=== PATIENT | female | born 1945 ===

== ENCOUNTER → 2017-07-15 09:07 | Outpatient (CLI) | payer MEDICARE, OTHER, SELFPAY ==
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
== END ==
PROVIDERS: PCP Internal Medicine; Visit Provider Internal Medicine
DX: M51.34 Other intervertebral disc degeneration, thoracic region (principal); M47.816 Spondylosis without myelopathy or radiculopathy, lumbar region
CPT/HCPCS: 72100

== ENCOUNTER → 2018-03-16 09:08 | Outpatient (CLI) | payer MEDICARE, OTHER, SELFPAY ==
--- NOTE | 2018-03-16 | DI.MG.S_ITS ---
BILATERAL DIGITAL SCREENING MAMMOGRAM 3D/2D WITH CAD: 03/16/2018 CLINICAL: Routine screening. Comparison is made to exams dated: 03/12/2014 mammogram and 07/21/2009 mammogram - [facility]. There are scattered fibroglandular elements in both breasts. Current study was also evaluated with a Computer Aided Detection (CAD) system. No significant masses, calcifications, or other findings are seen in either breast. There has been no significant interval change. IMPRESSION: NEGATIVE There is no mammographic evidence of malignancy. A 1 year screening mammogram is recommended. This exam was interpreted at Station ID: [id number]. NOTE: For mammograms, a report in lay terms will be sent to the patient. Approximately 15% of breast malignancies will not be visualized mammographically. In the management of a palpable breast mass, a negative mammogram must not discourage biopsy of a clinically suspicious lesion. Electronically Signed By: Juan Francisco lin/gabriela:03/16/2018 11:08:12 letter sent: Normal Exam ACR BI-RADS Category 1: Negative [id number]
== END ==
PROVIDERS: PCP Internal Medicine; Visit Provider Internal Medicine
DX: Z12.31 Encounter for screening mammogram for malignant neoplasm of breast (principal)
CPT/HCPCS: 77063; 77067

== ENCOUNTER 2018-04-25 08:36 | Day surgery (SDC) | payer MEDICARE, OTHER, SELFPAY ==
[2018-04-25] VITALS (8 sets, daily range): BP systolic 127–171; BP diastolic 42–93; PULSE 60–84; RESP 8–20; TEMP 36.5–36.7; O2SAT 96–100; BMI 21.7
--- NOTE | 2018-04-25 | PATH.2_ITS ---
[facility] Accession Number: [id number] . 01 Material submitted: . PART A: GASTRIC ANTRUM BIOPSIES PART B: POLYP TRANSVERSE COLON . 02 Diagnosis: A. Stomach, Antrum, Biopsies: Antral mucosa with reactive gastropathy. Negative for Helicobacter by immunohistochemistry. Negative for intestinal metaplasia. Negative for dysplasia and malignancy. . B. Transverse Colon, Polyp, Biopsy: Tubular adenoma. MRV/04/27/2018 . 02 Electronically signed: . Ashley Muir MD, Pathologist NPI- [id number] . 01 Gross description: . Received two formalin-filled containers, both labeled with the patient's name: . A. In a container labeled gastric antrum, are multiple 0.1-0.3 cm portions of tissue, which are entirely submitted in cassette A. B. In a container labeled polyp transverse colon, is a 0.4 cm portion of tissue, entirely submitted in cassette B. ([id number]) /FRR . 02 Microscopic: . A. An immunohistochemical stain was performed to evaluate for Helicobacter organisms and is negative. The control stain showed appropriate reactivity. . * This test was developed and its performance characteristics determined by [facility]. It has not been cleared or approved by the U.S. Food and Drug Administration. The FDA has determined that such clearance or approval is not necessary. This test is used for clinical purposes. It should not be regarded as investigational or for research. . 02 Pathologist provided ICD-10: D12.3 . 02 CPT . 290255, 112157, D42124 Performed at: 01 [facility] [address] [place] [address] [address], [place], [place] [id number] MD Juan Francisco Silva MD Phone: [phone] Performed at: 02 [facility] [address] [place] [id number] MD Ashley Muir MD Phone: [phone]
--- NOTE | 2018-04-25 09:49 | P.HP_ITS ---
History of Present Illness Date Patient Seen: 04/25/18 Time Patient Seen: 09:46 Chief complaint: [id number] EGD COLONOSCOPY Narrative: Patient is woman who is here for an EGD in follow-up to her esophageal issues and for colonoscopy for screening. No prior history of polyps. No family history. Patient History Medical History Back pain (Chronic) HTN (hypertension) (Chronic) Paraplegic spinal paralysis (Chronic) Hx of hysterectomy (Resolved) Surgical History History of urostomy (Chronic) History of Keyon fundoplication (Resolved) Hx laparoscopic cholecystectomy (Resolved) Hx of cholecystectomy (Resolved) Hx of hernia repair (Resolved) Hx of spinal fusion (Resolved) Family History Father Heart disease Mother Cancer Stroke Social History household members: spouse Smoking Status: Never smoker Family & Social History Family History Father Heart disease Mother Cancer Stroke Social History: household members spouse Tobacco & Substance use: Smoking Status Never smoker Meds Home Medications Medication Instructions Recorded Confirmed Type ASPIRIN (#ASPIRIN) 81 mg PO QDAY #0 10/22/11 04/25/18 History VITAMIN D (Vitamin D3) 1,000 unit PO QDAY #0 10/22/11 04/25/18 History [MORPHINE/BUPIVICAINE] See Rx Instructions .ROUTE 10/22/11 04/25/18 History .COMPLEX #0 citalopram 10 mg PO QDAY #0 10/22/11 04/25/18 History clonazepam 1 mg PO HS #0 10/22/11 04/25/18 History furosemide 20 mg PO PRN EDEMA #0 10/22/11 04/25/18 History ibuprofen 800 mg PO Q8HP #0 10/22/11 04/25/18 History levothyroxine [Synthroid] 25 mcg PO QDAY #0 10/22/11 04/25/18 History modafinil [Provigil] 100 mg PO PRN #0 10/22/11 04/25/18 History oxycodone [OxyContin] 10 mg PO PRN #0 10/22/11 04/25/18 History omeprazole 20 mg PO BID #60 tab 12/30/15 04/25/18 Rx dextroamphetamine 15 mg PO PRN PRN #0 03/04/16 04/25/18 History lisinopril 20 mg tablet 20 mg PO DAILY 03/22/18 04/25/18 History clonazepam [Klonopin] 1 mg PO Q8HP PRN 04/25/18 04/25/18 History ondansetron [Zofran ODT] 8 mg SUBLINGUAL PRN PRN 04/25/18 04/25/18 History Allergies Allergy/AdvReac Type Severity Reaction Status Date / Time sulfamethoxazole Allergy Intermediate HIVES/Rash Verified 04/25/18 09:01 [From BACTRIM] trimethoprim [From BACTRIM] Allergy Intermediate HIVES/Rash Verified 04/25/18 09:01 duloxetine [From CYMBALTA] AdvReac Intermediate STUTTERING, Verified 04/25/18 09:01 SLEEPING ISSUES gabapentin [GABAPENTIN] AdvReac Unknown BECAME Verified 04/25/18 09:01 RECLUSIVE Review of Systems Review of Systems Very unhappy with the prep. Patient is paraplegic. Lungs are clear no cough or cold. No chest pain. Had an anti reflux procedure which was successful. Exam Vital Signs (past 8 hours): - 04/25/18 09:21 Temperature 97.7 F Pulse Rate 84 Respiratory Rate 20 Blood Pressure 171/93 H Pulse Oximetry 100 Oxygen Delivery Method Room Air Narrative Exam Narrative: Operative no apparent distress. Lungs are clear to auscultation no rales or rhonchi heart regular rate and rhythm no murmur or gallop abdomen various pain pump other devices palpable. Multiple scars. No tenderness. Alert and oriented x3. Typical changes of a paraplegic in her lower extremities arms. Assessment & Plan Assessment & Plan narrative: Patient for screening examination and for an EGD and biopsy. I have discussed the procedures with her. I have discussed the procedure and the rationale with the patient including risks of bleeding, per foration which would necessitate a major operation, failure to find remove all lesions and the potential to tattoo. They appeared to understand and wished to proceed.
--- NOTE | 2018-04-25 10:16 | PM.PREOP ---
Pre-operative Note Interval Note History & Physical reviewed/Exam performed by Physician: Yes Changes to H&P: No ASA Class (for procedural sedation): III
--- NOTE | 2018-04-25 10:27 | SUR.PREOP ---
It was difficult to start patients IV for her procedure. After 6 attempts, Dr. Armstrong was able to start a 20G in her right lateral dorsal foot.
[2018-04-25] MEDS: SODIUM CHLORIDE 0.9% 1,000 ML 200 ML IV (10:31)
[2018-04-25] MEDS: TETRACAINE/BENZOCAINE/BUTAMBEN (CETACAINE) BOTTLE 1 SPRAY TOP (10:47)
[2018-04-25] MEDS: LIDOCAINE 4% SOLN 50 ML 20 ML TOP (10:48)
--- NOTE | 2018-04-25 12:01 | PM.OP.ENDO ---
Operative Date/Time/Diagnoses Date of procedure: 04/25/18 Time of procedure: 12:01 Pre-op diagnosis: Epigastric right upper quadrant pain. Melena. Screening Post-op diagnosis: same (Multiple gastric ulcers) Procedure & Clinicians Study performed: EGD with cold biopsy. Incomplete colonoscopy with cold biopsy Same procedure as scheduled: No (Had planned to do a complete colonoscopy) Indications: See preop diagnosis Surgeon: Spencer Armstrong Procedure Notes SCOAP/Timeout: Performed Procedure in detail: The patient had topical anesthetic applied to oropharynx. She was placed in left lateral decubitus position and underwent IV sedation directed by the surgeon consisting of fentanyl and Versed. A bite block was inserted and the scope was advanced through it into the esophagus. The esophagus was unremarkable. GE junction was noted at 35 cm. The stomach insufflated well. There were no lesions seen in the body or at the incisura. However in the antrum there were multiple superficial ulcers. The pyloric channel was patent though narrowed. The duodenum was unremarkable to the 4th part. The scope was brought back into the stomach and retroflexed. The proximal stomach was remarkable for what appeared to be a wrap that may have slipped up into a hiatal hernia. The scope was directed toward the antrum and biopsies were taken out only of the ulcers but also surrounding areas.. The scope was straightened and brought out through the esophagus again. No lesions were seen. The scope was removed and the patient tolerated the procedure well. The patient was repositioned for colonoscopy and given additional medication. Digital exam was remarkable for no sphincter tone consistent with her paraplegia and visible mucosa a typical of these patients. The scope was inserted and advanced through the rectum into the sigmoid, descending, and transverse colon. It was incredibly difficult just to get this far. The patient had to be repositioned a stiffener inserted pressure applied. I had great difficulty keeping the lumen insufflated so I could see had of me. I saw 1 small polyp which I removed. I reached a point The scope was gradually brought out. No other Polyps were found . The scope was slowly brought through the rectum. The appearance was consistent with what was visible. Exposed mucosa but no neoplastic lesions. The scope was removed and the patient tolerated the procedure well the prep was excellent. The patient required a rather large amount of medication to perform these 2 procedures most likely related to prior medication use. I would recommend that she undergo mom deep sedation with monitored anesthesia care and the use of propofol in the future. Scope withdrawal time: Not applicable Sedation minutes: 68 Findings: gastric ulcer (Multiple antral ulcers. Biopsies taken.), polyp (Colonic in the transverse colon.) and other findings (Post Keyon fundoplication. Possible recurrence of hiatal hernia.) Specimen(s): other (Biopsies/polyp) Complications: none Recommendations: Other recommendation (Consider barium enema to evaluate her remaining right colon. Consider repeat EGD in 3 months to confirm gastric ulcer healing) Plan for aftercare: Repeat EGD in 3 months after treatment with double-dose proton pump inhibitors. Await biopsy results. Disposition: PACU
[2018-04-25] MEDS: fentaNYL 250 MCG/5 ML INJ IV (12:13)
[2018-04-25] MEDS: MIDAZOLAM 5 MG/5 ML VIAL IV (12:14)
== END 2018-04-25 13:00 | disposition home or self-care (01) ==
PROVIDERS: PCP Internal Medicine; Visit Provider Specialist
PROC: 0DJ08ZZ Inspection of Upper Intestinal Tract, Via Natural or Artificial Opening Endoscopic (ICD-10-PCS; CPT 43235; principal; 2018-04-25 08:45)
PROC: 0DJD8ZZ Inspection of Lower Intestinal Tract, Via Natural or Artificial Opening Endoscopic (ICD-10-PCS; CPT 45378; 2018-04-25 08:45)
DX: K25.9 Gastric ulcer, unspecified as acute or chronic, without hemorrhage or perforation (principal); R10.13 Epigastric pain; D12.3 Benign neoplasm of transverse colon
CPT/HCPCS: 45380; 43239; 88305; 88342; 99152; 99153; J2250; J3010

== ENCOUNTER → 2018-05-19 09:53 | Outpatient (CLI) | payer MEDICARE, OTHER, SELFPAY ==
--- NOTE | 2018-05-19 | DI.CT.S_ITS ---
PROCEDURE: CT CERVICAL SPINE WO CON INDICATIONS: PRESENCE OF INTRATHECAL PUMP TECHNIQUE: Noncontrast 3 mm thick sections acquired from the skull base to the T4 level. Sagittal and coronal reformats were then constructed. For radiation dose reduction, the following was used: automated exposure control, adjustment of mA and/or kV according to patient size. COMPARISON: [facility], , C-SPINE COMPLETE 6 OR MORE VWS, 06/01/2013, 12:31. FINDINGS: Image quality: Excellent. Bones: There is straightening of normal cervical lordosis. Grade 1 anterolisthesis of C3 on C4 is again seen, not significantly changed from 2014 study. Minimal anterolisthesis of C6 on C7 and C7 on T1 are seen. No acute compression fracture. Degenerative endplate changes, decreased intervertebral disc space and bilateral facet hypertrophic changes are noted throughout cervical spine. There is suggestion of mild diffuse disc bulge at C4-5 through C6-7 levels causing mild central canal stenosis and mild bilateral neuroforaminal narrowing. No suspicious intraosseous lesion. Visualized superior ribs are intact. Soft tissues: Prevertebral soft tissues are normal in thickness. No paravertebral hematomas. No apical pneumothoraces. IMPRESSION: #1. Grade 1 anterolisthesis of C3 on C4. Minimal retrolisthesis at C6-7 and C7-T1 levels. No acute compression fracture. #2. Degenerative disc disease and bilateral facet hypertrophic changes are noted throughout cervical spine with mild central canal stenosis and bilateral neuroforaminal narrowing at C4-5 through C6-7 levels. Dictated by: Lester Quiñones M.D. on 05/19/2018 at 14:51 Approved by: Lester Quiñones M.D. on 05/19/2018 at 14:56
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
== END ==
PROVIDERS: PCP Internal Medicine; Visit Provider Anesthesiology Pain Medicine
DX: M50.30 Other cervical disc degeneration, unspecified cervical region (principal); M48.02 Spinal stenosis, cervical region; M43.12 Spondylolisthesis, cervical region; M47.816 Spondylosis without myelopathy or radiculopathy, lumbar region; Z96.89 Presence of other specified functional implants
CPT/HCPCS: 72125; 72131

== ENCOUNTER 2018-08-11 06:58 | Day surgery (SDC) | payer MEDICARE, OTHER, SELFPAY ==
[2018-08-11] VITALS (9 sets, daily range): BP systolic 83–99; BP diastolic 42–65; PULSE 57–71; RESP 10–18; TEMP 36.1–37.1; O2SAT 94–98; BMI 20.9
--- NOTE | 2018-08-11 | PATH_ITS ---
[facility] Accession Number: [id number] . 01 Material submitted: . gastrointestinal site - GASTRIC ULCER . 02 Diagnosis: Gastric Ulcer, Biopsy: Acute erosive gastritis. Negative for Helicobacter organisms by immunohistochemistry. Negative for intestinal metaplasia. Negative for dysplasia or malignancy. [facility]/08/15/2018 . 02 Electronically signed: . Warren Sanford MD, PhD, Pathologist NPI- [id number] . 01 Gross description: . GASTRIC ULCER: Received in formalin are 4 fragment(s) of mark, soft tissue measuring 0.1 x 0.1 x 0.1 cm to 0.4 x 0.3 x 0.2 cm which is entirely submitted and submitted entirely in 1 cassette(s) /DMC /DMC . 02 Microscopic: . An immunohistochemical stain is performed to evaluate for Helicobacter organisms, and is negative. A control stain shows appropriate reactivity. . * This test was developed and its performance characteristics determined by [facility]. It has not been cleared or approved by the U.S. Food and Drug Administration. The FDA has determined that such clearance or approval is not necessary. This test is used for clinical purposes. It should not be regarded as investigational or for research. . 02 Pathologist provided ICD-10: K29.70 . 02 CPT . 528597, D67249 Performed at: 01 [facility] [address], [place], [place] [id number] MD Juan Francisco Silva MD Phone: [phone] Performed at: 02 [facility] [address] [place], [place] [id number] MD Ashley Muir MD Phone: [phone]
[2018-08-11] MEDS: SODIUM CHLORIDE 0.9% 1,000 ML 84 ML IV (07:23)
--- NOTE | 2018-08-11 07:37 | PM.HP.1 ---
History of Present Illness Date Patient Seen: 08/11/18 Time Patient Seen: 07:38 Chief complaint: [id number] EGD Narrative: The patient is a woman who had multiple gastric ulcers. She is here for follow-up examination. Patient History Medical History Back pain (Chronic) HTN (hypertension) (Chronic) Paraplegic spinal paralysis (Chronic) Hx of hysterectomy (Resolved) Surgical History History of urostomy (Chronic) History of Keyon fundoplication (Resolved) Hx laparoscopic cholecystectomy (Resolved) Hx of cholecystectomy (Resolved) Hx of hernia repair (Resolved) Hx of spinal fusion (Resolved) Family History Father Heart disease Mother Cancer Stroke Social History (Updated 03/22/18 @ 20:34 by Spencer Armstrong MD) household members: spouse Smoking Status: Never smoker Family & Social History Family History Father Heart disease Mother Cancer Stroke Social History: household members spouse Tobacco & Substance use: Smoking Status Never smoker Meds Home Medications Medication Instructions Recorded Confirmed Type VITAMIN D (Vitamin D3) 1,000 unit PO QDAY #0 10/22/11 04/25/18 History aspirin 81 mg PO DAILY #0 10/22/11 08/11/18 History citalopram 10 mg PO QDAY #0 10/22/11 04/25/18 History clonazepam 1 mg PO HS #0 10/22/11 04/25/18 History furosemide 20 mg PO PRN EDEMA #0 10/22/11 04/25/18 History ibuprofen 800 mg PO Q8HP #0 10/22/11 04/25/18 History levothyroxine [Synthroid] 25 mcg PO QDAY #0 10/22/11 04/25/18 History modafinil [Provigil] 100 mg PO PRN #0 10/22/11 04/25/18 History oxycodone [OxyContin] 10 mg PO PRN #0 10/22/11 04/25/18 History omeprazole 20 mg PO BID #60 tab 12/30/15 04/25/18 Rx dextroamphetamine 15 mg PO PRN PRN #0 03/04/16 04/25/18 History lisinopril 20 mg tablet 20 mg PO DAILY 03/22/18 04/25/18 History clonazepam [Klonopin] 1 mg PO Q8HP PRN 04/25/18 04/25/18 History ondansetron [Zofran ODT] 8 mg SUBLINGUAL PRN PRN 04/25/18 04/25/18 History Allergies Allergy/AdvReac Type Severity Reaction Status Date / Time adhesive tape Allergy Severe removed Verified 08/11/18 07:15 skin (allergy to athletic tape only) sulfamethoxazole Allergy Intermediate HIVES/Rash Verified 08/11/18 07:15 [From BACTRIM] trimethoprim [From BACTRIM] Allergy Intermediate HIVES/Rash Verified 08/11/18 07:15 duloxetine [From CYMBALTA] AdvReac Intermediate STUTTERING, Verified 08/11/18 07:15 SLEEPING ISSUES gabapentin [GABAPENTIN] AdvReac Unknown BECAME Verified 08/11/18 07:15 RECLUSIVE Review of Systems Review of Systems No black stool. Has good energy. Lungs clear no cough. No heart problems. Exam Vital Signs (past 8 hours): - 08/11/18 07:21 Temperature 97.4 F L Pulse Rate 71 Respiratory Rate 16 Blood Pressure 99/48 L Pulse Oximetry 98 Oxygen Delivery Method Room Air Narrative Exam Narrative: Thin pleasant woman with no distress. Lungs are clear to auscultation. Good effort. Heart regular rate and rhythm without murmur gallop. Abdomen her trunk is somewhat deformed because of her spinal injury. She has a large foreign body in her left upper abdomen consistent with a known pain pump. She has an additional foreign body in the posterior right for the same reason. Her abdomen has multiple scars and there is an ostomy in the right lower abdomen covered in a bag. Assessment & Plan Assessment & Plan narrative: Patient with a history of gastric ulcers here for follow-up EGD. I discussed the procedure including risks of bleeding perforation aspiration. She appears to understand wishes to proceed. She has had a Keyon fundoplication.
--- NOTE | 2018-08-11 07:40 | PM.PREOP ---
Pre-operative Note Interval Note History & Physical reviewed/Exam performed by Physician: Yes Changes to H&P: No ASA Class (for procedural sedation): III
[2018-08-11] MEDS: LIDOCAINE 4% SOLN 50 ML 20 ML TOP (07:59)
[2018-08-11] MEDS: TETRACAINE/BENZOCAINE/BUTAMBEN (CETACAINE) BOTTLE 1 SPRAY TOP (08:00)
[2018-08-11] MEDS: MIDAZOLAM 5 MG/5 ML VIAL IV (08:15)
[2018-08-11] MEDS: fentaNYL 250 MCG/5 ML INJ IV (08:16)
--- NOTE | 2018-08-11 08:23 | PM.OP.ENDO ---
Operative Date/Time/Diagnoses Date of procedure: 08/11/18 Time of procedure: 08:23 Pre-op diagnosis: History of gastric ulcers Post-op diagnosis: other (Persistent pre-pyloric ulcer. No other ulcers seen. Status post fundoplication.) Procedure & Clinicians Study performed: EGD with cold biopsy Same procedure as scheduled: Yes Indications: Follow-up to confirm healing of gastric ulcer Surgeon: Spencer Armstrong Procedure Notes SCOAP/Timeout: Performed Procedure in detail: The patient had topical anesthetic applied to oropharynx. She was placed in left lateral decubitus position and underwent IV sedation directed by the surgeon consisting of fentanyl and Versed. A bite block was inserted and the scope was advanced through it into the esophagus. The esophagus was unremarkable. GE junction was noted at 34 cm from the incisors. The stomach insufflated well. There were no lesions seen in the body or at the incisura. There was an ulcer covered in exudate in the pre-pyloric area. It was not particularly inflamed however. The pyloric channel was widely patent. The duodenum was unremarkable to the 4th part. The scope was brought back into the stomach and retroflexed. The proximal stomach was remarkable for evidence of her prior fundoplication. The scope was straightened and biopsies were taken of the ulcer. The scope was then brought out through the esophagus again. No lesions were seen. There was no evidence of esophageal inflammation. The scope was removed and the patient tolerated the procedure well. Scope withdrawal time: Not applicable Sedation minutes: 16 Findings: gastric ulcer (Pre pyloric) Specimen(s): other (Gastric ulcer biopsies) Complications: none Recommendations: Continue medication(s) Plan for aftercare: Will follow-up by phone and decide how to proceed.
[2018-08-11 08:43] LABS: Erythrocyte Sedimentation Rate 56 MM/HR (0-20)
[2018-08-11 08:58] LABS: HEMOLYSIS < 15 (0-50); Potassium 4.3 mmol/L (3.4-5.1)
[2018-08-11 09:00] LABS: Alanine Aminotransferase 22 IU/L (9-52); Albumin 3.8 g/dL (3.5-5.0); Albumin Globulin Ratio 1.2 (1.0-2.8); Alkaline Phosphatase 102 U/L (38-126); Aspartate Aminotransferase 20 IU/L (14-36); Bilirubin Total 0.6 mg/dL (0.2-1.3); Blood Urea Nitrogen 29 mg/dL (7-17); C-Reactive Protein Quant 5.3 mg/dL (<1.0); Calcium 9.4 mg/dL (8.4-10.2); Carbon Dioxide 33 mmol/L (22-32); Chloride 95 mmol/L (98-107); Estimated Glomerular Filt Rate 54.7 mL/min (>60); Globulin 3.3 g/dL (1.7-4.1); Glucose 87 mg/dL (80-110); Sodium 133 mmol/L (137-145); Total Protein 7.1 g/dL (6.3-8.2); Uric Acid 6.5 mg/dL (2.5-6.2)
[2018-08-11 09:02] LABS: Rheumatoid Factor 15.1 IU/mL (<12.0)
[2018-08-15 10:31] LABS: CCP Antibodies IgG/IgA 8
== END 2018-08-11 10:00 | disposition home or self-care (01) ==
PROVIDERS: Internal Medicine Rheumatology; PCP Internal Medicine; Visit Provider Specialist
PROC: 0DJ08ZZ Inspection of Upper Intestinal Tract, Via Natural or Artificial Opening Endoscopic (ICD-10-PCS; CPT 43235; principal; 2018-08-11 07:45)
DX: K25.9 Gastric ulcer, unspecified as acute or chronic, without hemorrhage or perforation (principal); I10 Essential (primary) hypertension; K29.70 Gastritis, unspecified, without bleeding
CPT/HCPCS: 43239; 80053; 84550; 85651; 86038; 86140; 86200; 86430; 88305; 88342; 99152; J2250; J3010

== ENCOUNTER 2019-01-11 08:51 | Day surgery (SDC) | payer MEDICARE, OTHER, SELFPAY ==
[2019-01-11] VITALS (7 sets, daily range): BP systolic 83–127; BP diastolic 42–75; PULSE 50–76; RESP 9–16; TEMP 36.2–36.6; O2SAT 95–100
--- NOTE | 2019-01-11 | PATH_ITS ---
[facility] Accession Number: [id number] . 01 Material submitted: . gastrointestinal site - GASTRIC BIOPSIES . 01 Clinical history: . EGD . 02 Diagnosis: Stomach, Biopsies: Acute erosive gastritis. Negative for Helicobacter organisms by immunohistochemistry. Negative for intestinal metaplasia, dysplasia or malignancy. MRV 01/15/2019 1316 Local . 02 Electronically signed: . Warren Sanford MD, PhD, Pathologist NPI- [id number] . 01 Gross description: . GASTRIC BIOPSIES: Received in formalin are 2 fragment(s) of mark, soft tissue measuring 0.1 x 0.1 x 0.1 cm to 0.3 x 0.2 x 0.2 cm submitted entirely in 1 cassette(s) /[facility] [place] 01/11/2019 1943 Local . 02 Microscopic: . An immunohistochemical stain is performed to evaluate for Helicobacter organisms, and is negative. A control stain shows appropriate reactivity. . * This test was developed and its performance characteristics determined by [facility]. It has not been cleared or approved by the U.S. Food and Drug Administration. The FDA has determined that such clearance or approval is not necessary. This test is used for clinical purposes. It should not be regarded as investigational or for research. . 02 Pathologist provided ICD-10: K25.9, K29.70 . 02 CPT . 632154, V07226 Performed at: 01 [facility] [address], [place], [place] [id number] MD Juan Francisco Silva MD Phone: [phone] Performed at: 02 [facility] [place] [address] [place], [place] [id number] MD Ashley Muir MD Phone: [phone]
[2019-01-11] MEDS: SODIUM CHLORIDE 0.9% 1,000 ML 200 ML IV (09:52)
--- NOTE | 2019-01-11 09:55 | P.HP_ITS ---
History of Present Illness History of Present Illness Date Patient Seen: 01/11/19 Time Patient Seen: 09:39 Chief complaint: [id number] EGD Narrative: Patient here for an EGD to determine if her ulcers have healed. Patient History Medical History Back pain (Chronic) HTN (hypertension) (Chronic) Paraplegic spinal paralysis (Chronic) Surgical History History of [place] fundoplication (Resolved) History of urostomy (Chronic) Hx laparoscopic cholecystectomy (Resolved) Hx of cholecystectomy (Resolved) Hx of hernia repair (Resolved) Hx of hysterectomy (Resolved) Hx of spinal fusion (Resolved) Family & Social History Family History Father Heart disease Mother Cancer Stroke Social History: household members spouse Tobacco & Substance use: Smoking Status Never smoker Meds Home Medications and Allergies Home Medications Medication Instructions Recorded Confirmed Type VITAMIN D (Vitamin D3) 1,000 unit PO QDAY #0 10/22/11 04/25/18 History aspirin 81 mg PO DAILY #0 10/22/11 01/11/19 History citalopram 10 mg PO QDAY #0 10/22/11 01/11/19 History clonazepam 1 mg PO HS #0 10/22/11 01/11/19 History furosemide 20 mg PO PRN EDEMA #0 10/22/11 01/11/19 History levothyroxine [Synthroid] 25 mcg PO QDAY #0 10/22/11 01/11/19 History modafinil [Provigil] 100 mg PO PRN #0 10/22/11 01/11/19 History oxycodone [OxyContin] 10 mg PO PRN #0 10/22/11 01/11/19 History omeprazole 20 mg PO BID #60 tab 12/30/15 01/11/19 Rx dextroamphetamine 15 mg PO PRN PRN #0 03/04/16 01/11/19 History lisinopril 20 mg tablet 20 mg PO DAILY 03/22/18 01/11/19 History clonazepam [Klonopin] 1 mg PO Q8HP PRN 04/25/18 01/11/19 History Allergies Allergy/AdvReac Type Severity Reaction Status Date / Time adhesive tape Allergy Severe removed Verified 01/11/19 09:47 skin (allergy to athletic tape only) sulfamethoxazole Allergy Intermediate HIVES/Rash Verified 01/11/19 09:47 [From BACTRIM] trimethoprim [From BACTRIM] Allergy Intermediate HIVES/Rash Verified 01/11/19 09:47 duloxetine [From CYMBALTA] AdvReac Intermediate STUTTERING, Verified 01/11/19 09:47 SLEEPING ISSUES gabapentin [GABAPENTIN] AdvReac Unknown BECAME Verified 01/11/19 09:47 RECLUSIVE Review of Systems Review of Systems Narrative: Patient has symptoms related to her spinal injury such as muscle spasms and pain and inability to use or lower extremities. No cardiac or b reathing issues at this time. No seizures or blackouts. Exam Vital Signs (past 8 hours): - 01/11/19 09:26 Temperature 97.4 F L Pulse Rate 61 Respiratory Rate 16 Blood Pressure 127/75 Pulse Oximetry 100 Oxygen Delivery Method Room Air Narrative Exam Narrative: Cooperative in no apparent distress. Lungs are clear to auscultation no rales or rhonchi. Heart regular rate and rhythm no murmur gallop. Abdomen palpable hardware for her spinal stimulator and her ostomy. Alert and oriented x3. Assessment & Plan Assessment & Plan narrative: History of silent ulcer. EGD to determine healing. I have discussed risks of bleeding perforation with her. She appears to understand and wishes to proceed.
--- NOTE | 2019-01-11 10:01 | PM.PREOP ---
Pre-operative Note Interval Note History & Physical reviewed/Exam performed by Physician: Yes Changes to H&P: No ASA Class (for procedural sedation): III
[2019-01-11] MEDS: fentaNYL 250 MCG/5 ML INJ IV (10:13)
[2019-01-11] MEDS: LIDOCAINE 4% SOLN 50 ML 20 ML TOP (10:13)
[2019-01-11] MEDS: MIDAZOLAM 5 MG/5 ML VIAL IV (10:13)
--- NOTE | 2019-01-11 10:16 | PM.OP.ENDO ---
Operative Date/Time/Diagnoses Date of procedure: 01/11/19 Time of procedure: 10:16 Pre-op diagnosis: History of gastric ulcer Post-op diagnosis: same (Still so inflammation noted in the antrum) Procedure & Clinicians Study performed: EGD with cold biopsy Same procedure as scheduled: Yes Indications: Determine if ulcers have healed. Patient has silent ulcer disease. Surgeon: Spencer Armstrong Procedure Notes SCOAP/Timeout: Performed Procedure in detail: The patient had topical anesthetic applied to oropharynx. She was placed in left lateral decubitus position and underwent IV sedation directed by the surgeon consisting of fentanyl and Versed. A bite block was inserted and the scope was advanced through it into the esophagus. The esophagus was unremarkable. GE junction was noted at 35 cm from the incisors. The stomach insufflated well. There were no lesions seen in the body or at the incisura. In the antrum however there were 2 areas of what appeared to be inflamed mucosa. These were not true ulcers. The pyloric channel was narrowed but patent. The duodenum was unremarkable to the 3rd part. The scope was brought back into the stomach and retroflexed. The proximal stomach was remarkable for the appearance of a fundoplication. The scope was straightened and brought out through the esophagus again. No lesions were seen. The scope was removed and the patient tolerated the procedure well. Scope withdrawal time: Not applicable Sedation minutes: 13 Findings: other findings (Discrete areas of inflammation in the stomach) Specimen(s): other (Gastric biopsies) Complications: none Post-procedure Recommendations: Continue medication(s) (Omeprazole) Disposition: PACU
== END 2019-01-11 11:20 | disposition home or self-care (01) ==
PROVIDERS: PCP Internal Medicine; Visit Provider Specialist
PROC: 0DJ08ZZ Inspection of Upper Intestinal Tract, Via Natural or Artificial Opening Endoscopic (ICD-10-PCS; CPT 43235; principal; 2019-01-11 09:45)
DX: K25.9 Gastric ulcer, unspecified as acute or chronic, without hemorrhage or perforation (principal); K29.70 Gastritis, unspecified, without bleeding; I10 Essential (primary) hypertension
CPT/HCPCS: 43239; 99152; J2250; J3010

== ENCOUNTER → 2019-12-19 20:03 | Outpatient (ROUT) | payer MEDICARE, OTHER, SELFPAY ==
[2019-12-19 20:31] LABS: Aspartate Aminotransferase 15 IU/L (14-36); BUN Creatinine Ratio 26.1 (6-22); Blood Urea Nitrogen 53 mg/dL (7-17); Calcium 9.4 mg/dL (8.4-10.2); Carbon Dioxide 30 mmol/L (22-32); Chloride 100 mmol/L (98-107); Cholesterol 232 mg/dL (140-199); Glucose 133 mg/dL (80-110); HDL Cholesterol 92 mg/dL (40-60); HEMOLYSIS < 15 (0-50); LDL Cholesterol Calculated 83 mg/dL (<100); Potassium 4.3 mmol/L (3.4-5.1); Sodium 136 mmol/L (137-145); Triglycerides 285 mg/dL (35-150)
[2019-12-19 20:43] LABS: Add Manual Diff / Slide Review NO; Basophils Absolute Auto 0 /uL (0-100); Basophils Percent Auto 0.7 % (0-2); Eosinophils Absolute Auto 100 /uL (0-450); Eosinophils Percent Auto 1.3 % (2-4); Hemoglobin 11.6 g/dL (12.0-16.0); Lymphocytes Absolute Auto 1500 /uL (1100-4500); Lymphocytes Percent Auto 28.6 % (25-40); Mean Corpuscular HGB Conc 33.1 % (30-36); Mean Corpuscular Hemoglobin 30.4 PG (26-34); Mean Corpuscular Volume 91.7 fL (80-100); Monocytes Absolute Auto 200 /uL (0-900); Monocytes Percent Auto 3.8 % (3-14); Neutrophils Absolute Auto 3500 /uL (1500-7000); Neutrophils Percent Auto 65.6 % (50-75); Platelet Count 256 X10^3/uL (150-400); Red Blood Cell Count 3.82 X10^6/uL (4.0-5.2); Red Cell Distribution Width 15.1 % (11.6-14.8); White Blood Cell Count 5.3 X10^3/uL (4.5-11.0)
[2019-12-19 21:02] LABS: TSH w/ Reflex to FT4 0.41 uIU/mL (0.47-4.68)
[2019-12-19 21:49] LABS: Free T4, Direct Thyroxine 0.98 ng/dL (0.78-2.19)
== END ==
PROVIDERS: PCP Internal Medicine; Visit Provider Internal Medicine
DX: E03.9 Hypothyroidism, unspecified (principal); I10 Essential (primary) hypertension; E78.2 Mixed hyperlipidemia
CPT/HCPCS: 80048; 80061; 84439; 84443; 84450; 85025

== ENCOUNTER → 2020-09-11 13:37 | Outpatient (CLI) | payer MEDICARE, OTHER, SELFPAY | PROVIDERS: Family Provider Internal Medicine; PCP Internal Medicine; Referring Provider Internal Medicine; Visit Provider Family Medicine | DX: L89.613 Pressure ulcer of right heel, stage 3 (principal); S91.001A Unspecified open wound, right ankle, initial encounter; G82.21 Paraplegia, complete; L08.9 Local infection of the skin and subcutaneous tissue, unspecified | CPT/HCPCS: 11042; 87070; 87075; 87077; 87186; 87205; 99204; 99214 ==

== ENCOUNTER → 2020-09-19 12:54 | Outpatient (CLI) | payer MEDICARE, OTHER, SELFPAY | PROVIDERS: Family Provider Internal Medicine; PCP Internal Medicine; Referring Provider Internal Medicine; Visit Provider Nurse Practitioner Family | DX: L89.613 Pressure ulcer of right heel, stage 3 (principal); L08.9 Local infection of the skin and subcutaneous tissue, unspecified; G82.21 Paraplegia, complete | CPT/HCPCS: 97597; 99214 ==

== ENCOUNTER → 2020-09-26 11:06 | Outpatient (CLI) | payer MEDICARE, OTHER, SELFPAY | PROVIDERS: Family Provider Internal Medicine; PCP Internal Medicine; Referring Provider Internal Medicine; Visit Provider Nurse Practitioner Family | DX: L89.613 Pressure ulcer of right heel, stage 3 (principal); L08.9 Local infection of the skin and subcutaneous tissue, unspecified; G82.21 Paraplegia, complete; Y93.H2 Activity, gardening and landscaping | CPT/HCPCS: 97597; 99213 ==

== ENCOUNTER → 2020-10-03 11:51 | Outpatient (CLI) | payer MEDICARE, OTHER, SELFPAY | PROVIDERS: Family Provider Internal Medicine; PCP Internal Medicine; Referring Provider Internal Medicine; Visit Provider Nurse Practitioner Family | DX: L89.613 Pressure ulcer of right heel, stage 3 (principal); L08.9 Local infection of the skin and subcutaneous tissue, unspecified; G82.21 Paraplegia, complete | CPT/HCPCS: 97597 ==

== ENCOUNTER → 2020-10-24 15:23 | Outpatient (CLI) | payer MEDICARE, OTHER, SELFPAY | PROVIDERS: Family Provider Internal Medicine; PCP Internal Medicine; Referring Provider Internal Medicine; Visit Provider Nurse Practitioner Family | DX: L89.613 Pressure ulcer of right heel, stage 3 (principal); G82.21 Paraplegia, complete | CPT/HCPCS: 15275; Q4137 ==

== ENCOUNTER → 2020-11-07 13:41 | Outpatient (CLI) | payer MEDICARE, OTHER, SELFPAY | PROVIDERS: Family Provider Internal Medicine; PCP Internal Medicine; Referring Provider Internal Medicine; Visit Provider Family Medicine | DX: L89.613 Pressure ulcer of right heel, stage 3 (principal); G82.21 Paraplegia, complete | CPT/HCPCS: 15275; Q4137 ==

== ENCOUNTER → 2020-11-28 11:34 | Outpatient (CLI) | payer MEDICARE, OTHER, SELFPAY | PROVIDERS: Family Provider Internal Medicine; PCP Internal Medicine; Referring Provider Internal Medicine; Visit Provider Nurse Practitioner Family | DX: G82.21 Paraplegia, complete (principal); L89.613 Pressure ulcer of right heel, stage 3; S90.421A Blister (nonthermal), right great toe, initial encounter | CPT/HCPCS: 97597; 99213 ==

== ENCOUNTER → 2020-12-05 15:39 | Outpatient (CLI) | payer MEDICARE, OTHER, SELFPAY | PROVIDERS: Family Provider Internal Medicine; PCP Internal Medicine; Referring Provider Internal Medicine; Visit Provider Nurse Practitioner Family | DX: L89.613 Pressure ulcer of right heel, stage 3 (principal); S90.821A Blister (nonthermal), right foot, initial encounter; S90.421A Blister (nonthermal), right great toe, initial encounter; G82.21 Paraplegia, complete | CPT/HCPCS: 15275; 99213; Q4137 ==

== ENCOUNTER → 2020-12-19 09:48 | Outpatient (CLI) | payer MEDICARE, OTHER, SELFPAY | PROVIDERS: Family Provider Internal Medicine; PCP Internal Medicine; Referring Provider Internal Medicine; Visit Provider Family Medicine | DX: L89.613 Pressure ulcer of right heel, stage 3 (principal); S90.421A Blister (nonthermal), right great toe, initial encounter; G82.21 Paraplegia, complete; S90.821A Blister (nonthermal), right foot, initial encounter | CPT/HCPCS: 97597 ==

== ENCOUNTER → 2021-01-09 13:14 | Outpatient (CLI) | payer MEDICARE, OTHER, SELFPAY | PROVIDERS: Family Provider Internal Medicine; PCP Internal Medicine; Referring Provider Internal Medicine; Visit Provider Family Medicine | DX: L89.613 Pressure ulcer of right heel, stage 3 (principal); G82.21 Paraplegia, complete; S90.414D Abrasion, right lesser toe(s), subsequent encounter; R60.0 Localized edema; Z91.19 Patient's noncompliance with other medical treatment and regimen | CPT/HCPCS: 11042 ==

== ENCOUNTER → 2021-01-16 10:11 | Outpatient (CLI) | payer MEDICARE, OTHER, SELFPAY | PROVIDERS: Family Provider Internal Medicine; PCP Internal Medicine; Referring Provider Internal Medicine; Visit Provider Family Medicine | DX: L89.613 Pressure ulcer of right heel, stage 3 (principal); G82.21 Paraplegia, complete | CPT/HCPCS: 11042 ==

== ENCOUNTER → 2021-01-30 13:10 | Outpatient (CLI) | payer MEDICARE, OTHER, SELFPAY | PROVIDERS: Family Provider Internal Medicine; PCP Internal Medicine; Referring Provider Internal Medicine; Visit Provider Nurse Practitioner Family | DX: L89.613 Pressure ulcer of right heel, stage 3 (principal); G82.21 Paraplegia, complete | CPT/HCPCS: 11042 ==

== ENCOUNTER → 2021-05-28 11:06 | Outpatient (CLI) | payer MEDICARE, OTHER, SELFPAY ==
--- NOTE | 2021-05-28 | DI.MG.S_ITS ---
BILATERAL DIGITAL SCREENING MAMMOGRAM 3D/2D WITH CAD: 05/28/2021 CLINICAL: Routine screening. Comparison is made to exams dated: 03/16/2018 mammogram and 03/12/2014 mammogram - [facility]. There are scattered fibroglandular elements in both breasts. Current study was also evaluated with a Computer Aided Detection (CAD) system. No significant masses, calcifications, or other findings are seen in either breast. There has been no significant interval change. IMPRESSION: NEGATIVE There is no mammographic evidence of malignancy. A 1 year screening mammogram is recommended. This exam was interpreted at Station ID: [id number]. NOTE: For mammograms, a report in lay terms will be sent to the patient. Approximately 15% of breast malignancies will not be visualized mammographically. In the management of a palpable breast mass, a negative mammogram must not discourage biopsy of a clinically suspicious lesion. Electronically Signed By: Mark bond/gabriela:05/28/2021 13:10:04 letter sent: Normal Exam ACR BI-RADS Category 1: Negative 3341F
== END ==
PROVIDERS: Family Provider Internal Medicine; PCP Family Medicine; Referring Provider Family Medicine; Visit Provider Family Medicine
DX: Z12.31 Encounter for screening mammogram for malignant neoplasm of breast (principal)
CPT/HCPCS: 77063; 77067

== ENCOUNTER → 2021-07-16 11:36 | Outpatient (CLI) | payer MEDICARE, OTHER, SELFPAY ==
[2021-07-16 13:55] LABS: Add Manual Diff / Slide Review NO; Basophils Absolute Auto 0 /uL (0-100); Basophils Percent Auto 0.6 % (0-2); Eosinophils Absolute Auto 100 /uL (0-450); Eosinophils Percent Auto 2.6 % (2-4); Hematocrit 35.7 % (36-46); Hemoglobin 11.8 g/dL (12.0-16.0); Lymphocytes Absolute Auto 1100 /uL (1100-4500); Lymphocytes Percent Auto 20.3 % (25-40); Mean Corpuscular HGB Conc 33.1 % (30-36); Mean Corpuscular Volume 87.4 fL (80-100); Monocytes Absolute Auto 300 /uL (0-900); Monocytes Percent Auto 6.3 % (3-14); Neutrophils Absolute Auto 3600 /uL (1500-7000); Neutrophils Percent Auto 70.2 % (50-75); Platelet Count 212 X10^3/uL (150-400); Red Blood Cell Count 4.08 X10^6/uL (4.0-5.2); Red Cell Distribution Width 14.2 % (11.6-14.8); White Blood Cell Count 5.2 X10^3/uL (4.5-11.0)
[2021-07-16 14:04] LABS: Hemoglobin A1C% w Est Avg Glu 5.1 % (4.0-6.0)
[2021-07-16 14:19] LABS: Alanine Aminotransferase 11 IU/L (<35); Albumin Globulin Ratio 1.2 (1.0-2.8); Alkaline Phosphatase 78 U/L (38-126); Aspartate Aminotransferase 18 IU/L (14-36); Bilirubin Total 0.3 mg/dL (0.2-1.3); Blood Urea Nitrogen 27 mg/dL (7-17); Calcium 9.2 mg/dL (8.4-10.2); Carbon Dioxide 29 mmol/L (22-32); Chloride 106 mmol/L (98-107); Cholesterol 220 mg/dL (140-199); Estimated Glomerular Filt Rate 46 mL/min (>60); Globulin 3.3 g/dL (1.7-4.1); Glucose 86 mg/dL (80-110); HDL Cholesterol 84 mg/dL (40-60); HEMOLYSIS < 15 (0-50); LDL Cholesterol Calculated 117 mg/dL (<100); Potassium 4.7 mmol/L (3.4-5.1); Sodium 140 mmol/L (137-145); Total Protein 7.3 g/dL (6.3-8.2); Triglycerides 93 mg/dL (35-150)
[2021-07-16 14:41] LABS: TSH w/ Reflex to FT4 2.51 uIU/mL (0.47-4.68)
== END ==
PROVIDERS: Family Provider Internal Medicine; PCP Family Medicine; Referring Provider Family Medicine; Visit Provider Family Medicine
DX: Z01.810 Encounter for preprocedural cardiovascular examination (principal); E03.9 Hypothyroidism, unspecified; R73.9 Hyperglycemia, unspecified; M54.9 Dorsalgia, unspecified; G82.20 Paraplegia, unspecified; I10 Essential (primary) hypertension; R79.89 Other specified abnormal findings of blood chemistry
CPT/HCPCS: 36415; 80053; 80061; 83036; 84443; 85025; 93005; 93010

== ENCOUNTER → 2021-10-01 15:26 | Outpatient (CLI) | payer MEDICARE, OTHER, SELFPAY ==
--- NOTE | 2021-10-01 15:29 | DI.RAD.S_ITS ---
PROCEDURE: XR HAND RT MIN 3V INDICATIONS: bilateral hand pain TECHNIQUE: 3 views of the hand(s) acquired. COMPARISON: None. FINDINGS: Bones: No fractures or dislocations. Carpal bones are normally aligned. No suspicious bony lesions. Polyarticular joint space narrowing with periarticular osteophyte formation, most notably involving the 1st CMC joint as well as the 1st interphalangeal joint and the 3rd DIP joint. Juxta-articular lucencies involve the 1st interphalangeal joint as well as multiple interphalangeal joints. Soft tissues: No suspicious soft tissue calcifications. Capsular calcification involving the 4th MCP joint. IMPRESSION: 1. Diffuse joint degeneration, most notably involving the 1st CMC joint, the 1st interphalangeal joint and the 3rd DIP joint. 2. Multiple juxta-articular lucencies consistent with subchondral cystic change versus bony erosions. Inflammatory arthropathy cannot be excluded. Dictated by: Mustapha DANGELO Interpreted: Devon Martinez MD on 10/01/2021 at 15:49 Transcribed by: CAROL on 10/01/2021 at 15:51 Approved by: Devon Martinez M.D. on 10/01/2021 at 16:38
--- NOTE | 2021-10-01 15:29 | DI.RAD.S_ITS ---
PROCEDURE: XR HAND LT MIN 3V INDICATIONS: bilateral hand pain TECHNIQUE: 3 views of the hand(s) acquired. COMPARISON: None. FINDINGS: Bones: No fractures or dislocations. Carpal bones are normally aligned. No suspicious bony lesions. Polyarticular joint space narrowing with periarticular osteophyte formation, severe involving the radiocarpal joint, the 1st CMC joint and the 2nd DIP joint. Juxta-articular lucencies involve the radiocarpal joint, the lunate, the 1st CMC joint, the 1st, 2nd and 3rd MCP joints as well as the 2nd DIP joint. Soft tissues: No suspicious soft tissue calcifications. IMPRESSION: 1. Diffuse joint degeneration, severe involving the radiocarpal joint, 1st CMC joint and the 2nd DIP joint. 2. Multiple juxta-articular lucencies consistent with subchondral cystic change versus bony erosions. Inflammatory arthropathy cannot be excluded. Dictated by: Mustapha DANGELO Interpreted: Devon Martinez MD on 10/01/2021 at 15:41 Transcribed by: CAROL on 10/01/2021 at 15:43 Approved by: Devon Martinez M.D. on 10/01/2021 at 16:38
== END ==
PROVIDERS: Family Provider Internal Medicine; PCP Family Medicine; Referring Provider Family Medicine; Visit Provider Family Medicine
DX: M18.0 Bilateral primary osteoarthritis of first carpometacarpal joints (principal); M19.032 Primary osteoarthritis, left wrist; M19.042 Primary osteoarthritis, left hand; M19.041 Primary osteoarthritis, right hand; G25.9 Extrapyramidal and movement disorder, unspecified; G82.20 Paraplegia, unspecified; M79.641 Pain in right hand; M79.642 Pain in left hand
CPT/HCPCS: 73130

== ENCOUNTER → 2021-10-09 13:20 | Outpatient (CLI) | payer MEDICARE, OTHER, SELFPAY | PROVIDERS: Family Provider Internal Medicine; PCP Family Medicine; Referring Provider Family Medicine; Visit Provider Family Medicine | DX: G82.20 Paraplegia, unspecified (principal); G25.9 Extrapyramidal and movement disorder, unspecified; M47.812 Spondylosis without myelopathy or radiculopathy, cervical region ==

== ENCOUNTER → 2021-10-19 10:30 | Outpatient (CLI) | payer MEDICARE, OTHER, SELFPAY ==
--- NOTE | 2021-10-19 10:30 | DI.MRI.S_ITS ---
PROCEDURE: MR CERVICAL SPINE WO CON INDICATIONS: Neck pain TECHNIQUE: Noncontrast sagittal T1 spin echo and T2 fast spin echo, sagittal STIR, foraminal oblique sagittal T2 fast spin echo, and axial gradient echo or T2 fast spin echo through the cervical spine. COMPARISON: [facility], CT, CT CERVICAL SPINE WO CON, 05/19/2018, 10:24. FINDINGS: Image quality: Excellent. Alignment and Curvature: There is minimal retrolisthesis seen at C2-C3 and mild grade 1 anterolisthesis seen at C3-C4. There is overall straightening of the normal cervical lordosis. Bone Marrow: Marrow demonstrates normal overall signal. Spinal Cord: Visualized spinal cord has normal size and signal. No cerebellar tonsillar herniation. Paraspinous Soft Tissues: No paravertebral masses. Prevertebral soft tissues are normal in thickness. Abnormal soft tissue pannus can be seen adjacent to dens, with mild erosion seen of the dens itself. C2-C3: Moderate loss of disc height is seen. Loss of disc signal is seen. Mild to moderate disc osteophyte complex is seen, which is eccentric to the right. Mild facet joint hypertrophy is seen. There is moderate left-sided and at least moderate right-sided neural foraminal narrowing. Moderate central canal narrowing is seen. There is associated mass effect upon the ventral spinal cord. C3-C4: Moderate loss of disc height is seen. Loss of disc signal is seen. Mild to moderate disc osteophyte complex is seen. There is at least moderate facet hypertrophy seen at this level. There is moderate to severe bilateral neural foraminal narrowing seen. Mild to moderate central canal narrowing is seen. C4-C5: Moderate to severe loss of disc height and disc signal can be seen. At least moderate disc osteophyte complex is seen. Uncovertebral joint hypertrophy is seen at this level. Moderate facet joint hypertrophy is seen. Moderate bilateral neural foraminal narrowing is seen. There is associated mass effect upon the ventral spinal cord. C5-C6: At least moderate loss of disc height and disc signal can be seen. At least moderate disc osteophyte complex is seen, which is eccentric to the right. There is a central disc osteophyte protrusion seen. Moderate facet joint hypertrophy is seen. There is moderate to severe left-sided neural foraminal narrowing seen. Moderate central canal narrowing is seen. There is associated mass effect upon the ventral spinal cord. C6-C7: Moderate loss of disc height is seen. Loss of disc signal is seen. Moderate disc osteophyte complex is seen, including a central disc osteophyte protrusion. Uncovertebral joint hypertrophy is seen at this level. Mild to moderate facet hypertrophy is seen at this level. There is moderate to severe bilateral neural foraminal narrowing seen. Moderate central canal narrowing is seen. There is associated mass effect upon the ventral spinal cord. C7-T1: At least moderate loss of disc height and disc signal can be seen at this level. Mild to moderate disc osteophyte complex is seen. Mild to moderate facet hypertrophy is seen. There is moderate bilateral neural foraminal narrowing seen. No significant central canal narrowing is seen. IMPRESSION: Multiple levels of relatively prominent cervical spine degenerative change can be seen. Abnormal soft tissue pannus can be seen adjacent to the dens, with partial erosion of the dens itself. Dictated by: Devon Martinez M.D. on 10/19/2021 at 11:29 Approved by: Devon Martinez M.D. on 10/19/2021 at 11:34
[2021-10-19 12:11] LABS: C-Reactive Protein Quant 0.6 mg/dL (<1.0)
[2021-10-19 12:13] LABS: Erythrocyte Sedimentation Rate 32 MM/HR (0-20)
[2021-10-19 12:14] LABS: Rheumatoid Factor < 8.6 IU/mL (<12.0)
[2021-10-22 00:44] LABS: CCP Antibodies IgG/IgA 7 units (0-19)
[2021-10-22 22:24] LABS: ANA Screen, IFA Positive (.); Nucleolar Pattern >1:1280 (.)
== END ==
PROVIDERS: Family Provider Internal Medicine; PCP Family Medicine; Referring Provider Family Medicine; Visit Provider Family Medicine
DX: M47.812 Spondylosis without myelopathy or radiculopathy, cervical region (principal); M48.02 Spinal stenosis, cervical region; M06.9 Rheumatoid arthritis, unspecified; M79.641 Pain in right hand; M79.642 Pain in left hand
CPT/HCPCS: 36415; 72141; 85651; 86038; 86140; 86200; 86430

== ENCOUNTER → 2022-06-03 13:46 | Outpatient (CLI) | payer MEDICARE, OTHER, SELFPAY ==
--- NOTE | 2022-06-03 13:53 | DI.MG.S_ITS ---
BILATERAL DIGITAL SCREENING MAMMOGRAM 3D/2D WITH CAD: 06/03/2022 CLINICAL: Routine screening. Comparison is made to exams dated: 05/28/2021 mammogram, 03/16/2018 mammogram, and 03/20/2014 mammogram - [facility]. There are scattered areas of fibroglandular density in both breasts (category b / 25%-50% glandular tissue). Current study was also evaluated with a Computer Aided Detection (CAD) system. There are benign calcifications in both breasts. No significant masses, calcifications, or other findings are seen in either breast. There has been no significant interval change. IMPRESSION: BENIGN There is no mammographic evidence of malignancy. A 1 year screening mammogram is recommended. Based on the Tyrer Cuzick model (a risk assessment model) the patient's lifetime risk is 3.4% and her 10 year risk is 3.4%. According to the ACR, ACS, and NCCN guidelines, an annual breast MRI exam along with mammogram is recommended if the patient's lifetime risk is 20% or greater. This exam was interpreted at Station ID: [id number]. NOTE: For mammograms, a report in lay terms will be sent to the patient. Approximately 15% of breast malignancies will not be visualized mammographically. In the management of a palpable breast mass, a negative mammogram must not discourage biopsy of a clinically suspicious lesion. Electronically Signed By: Dallas burrell/gabriela:06/03/2022 16:10:10 letter sent: Normal Exam ACR BI-RADS Category 2: Benign Finding(s) 3342F
[2022-06-03 14:24] LABS: Add Manual Diff / Slide Review NO; Basophils Absolute Auto 0 /uL (0-100); Basophils Percent Auto 0.6 % (0-2); Eosinophils Absolute Auto 100 /uL (0-450); Eosinophils Percent Auto 1.6 % (2-4); Hematocrit 34.2 % (36-46); Hemoglobin 11.5 g/dL (12.0-16.0); Lymphocytes Absolute Auto 1000 /uL (1100-4500); Lymphocytes Percent Auto 18.3 % (25-40); Mean Corpuscular HGB Conc 33.5 % (30-36); Mean Corpuscular Hemoglobin 29.3 PG (26-34); Mean Corpuscular Volume 87.5 fL (80-100); Monocytes Absolute Auto 200 /uL (0-900); Monocytes Percent Auto 4.4 % (3-14); Neutrophils Absolute Auto 4000 /uL (1500-7000); Neutrophils Percent Auto 75.1 % (50-75); Platelet Count 264 X10^3/uL (150-400); Red Blood Cell Count 3.91 X10^6/uL (4.0-5.2); Red Cell Distribution Width 13.2 % (11.6-14.8); White Blood Cell Count 5.4 X10^3/uL (4.5-11.0)
[2022-06-03 14:47] LABS: Alanine Aminotransferase 15 IU/L (<35); Albumin 3.8 g/dL (3.5-5.0); Albumin Globulin Ratio 1.2 (1.0-2.8); Alkaline Phosphatase 99 U/L (38-126); Aspartate Aminotransferase 16 IU/L (14-36); BUN Creatinine Ratio 35.8 (6-22); Bilirubin Total 0.3 mg/dL (0.2-1.3); Blood Urea Nitrogen 53 mg/dL (7-17); Carbon Dioxide 27 mmol/L (22-32); Chloride 97 mmol/L (98-107); Cholesterol 223 mg/dL (140-199); Estimated Glomerular Filt Rate 37 mL/min (>60); Globulin 3.3 g/dL (1.7-4.1); Glucose 96 mg/dL (80-110); HDL Cholesterol 85 mg/dL (40-60); HEMOLYSIS < 15 (0-50); LDL Cholesterol Calculated 116 mg/dL (<100); Sodium 133 mmol/L (137-145); Total Protein 7.1 g/dL (6.3-8.2); Triglycerides 112 mg/dL (35-150)
[2022-06-03 19:16] LABS: Vitamin D 25 Hydroxy (D3) 62.9 ng/mL (30.0-100.0)
[2022-06-05 10:19] LABS: Calcium 9.3 mg/dL (8.7-10.3); Parathyroid Hormone, Intact 78 pg/mL (15-65)
== END ==
PROVIDERS: Family Provider Internal Medicine; PCP Family Medicine; Referring Provider Family Medicine; Visit Provider Family Medicine
DX: Z12.31 Encounter for screening mammogram for malignant neoplasm of breast (principal); D64.9 Anemia, unspecified; I10 Essential (primary) hypertension; E03.9 Hypothyroidism, unspecified; G82.20 Paraplegia, unspecified
CPT/HCPCS: 36415; 77063; 77067; 80053; 80061; 82306; 82310; 83970; 85025

== ENCOUNTER → 2022-07-08 14:11 | Outpatient (CLI) | payer MEDICARE, OTHER, SELFPAY ==
[2022-07-08 15:01] LABS: Alanine Aminotransferase 22 IU/L (<35); Alkaline Phosphatase 99 U/L (38-126); Aspartate Aminotransferase 18 IU/L (14-36); BUN Creatinine Ratio 31.4 (6-22); Bilirubin Total 0.4 mg/dL (0.2-1.3); Blood Urea Nitrogen 54 mg/dL (7-17); C-Reactive Protein Quant 5.9 mg/dL (<1.0); Calcium 8.9 mg/dL (8.4-10.2); Carbon Dioxide 27 mmol/L (22-32); Chloride 97 mmol/L (98-107); Estimated Glomerular Filt Rate 31 mL/min (>60); Globulin 3.9 g/dL (1.7-4.1); Glucose 94 mg/dL (80-110); HEMOLYSIS < 15 (0-50); Potassium 4.8 mmol/L (3.4-5.1); Sodium 134 mmol/L (137-145); Total Protein 7.9 g/dL (6.3-8.2)
[2022-07-08 15:06] LABS: Erythrocyte Sedimentation Rate 67 MM/HR (0-20)
[2022-07-08 15:34] LABS: Creatinine Urine Random 28.1 mg/dL
[2022-07-08 15:39] LABS: Microalbumi Creatinin Ratio Ur 288.2 ug/mg CR (<30); Microalbumin Urine Random 8.1 mg/dL (0-1.6)
[2022-07-12 13:18] LABS: Alpha-1 Globulin, Ur 4.9 % (.); Beta Globulin, Ur 25.7 % (.); Gamma Globulin, Ur 22.4 % (.); M-Spike % Not Observed % (Not Observed); Urine Total Protein 26.6 mg/dL (Not Estab.)
[2022-07-12 16:20] LABS: Albumin 3.5 g/dL (2.9-4.4); Alpha-1-Globulin 0.5 g/dL (0.0-0.4); Alpha-2-Globulin 0.9 g/dL (0.4-1.0); Gamma Globulin 1.4 g/dL (0.4-1.8); Protein, Total 7.5 g/dL (6.0-8.5)
[2022-07-13 17:53] LABS: ANA Screen, IFA Negative (.)
== END ==
PROVIDERS: Family Provider Internal Medicine; PCP Family Medicine; Referring Provider Family Medicine; Visit Provider Family Medicine
DX: E03.9 Hypothyroidism, unspecified (principal); G82.20 Paraplegia, unspecified; G89.4 Chronic pain syndrome; I10 Essential (primary) hypertension; N18.30 Chronic kidney disease, stage 3 unspecified; D64.9 Anemia, unspecified
CPT/HCPCS: 36415; 80053; 82043; 82570; 84155; 84156; 84165; 84166; 85651; 86038; 86140

== ENCOUNTER → 2023-03-08 12:14 | Outpatient (CLI) | payer MEDICARE, OTHER, SELFPAY ==
--- NOTE | 2023-03-08 12:20 | DI.RAD.S_ITS ---
PROCEDURE: XR CERVICAL SPINE 4V OR 5V INDICATIONS: Neck pain TECHNIQUE: 5 views of the cervical spine acquired. COMPARISON: None. FINDINGS: Bones: No fractures or dislocations to the T1 level. Oblique images demonstrate no bony foraminal stenoses. Grade 1 anterolisthesis of C3 on C4. Severe disc height loss at all levels. Diffuse facet arthrosis. Soft tissues: No prevertebral soft tissue swelling. IMPRESSION: Severe degenerative disc disease and facet arthrosis. Dictated by: Robin Ye M.D. on 03/08/2023 at 15:36 Approved by: Robin Ye M.D. on 03/08/2023 at 15:36
== END ==
PROVIDERS: Family Provider Internal Medicine; PCP Internal Medicine; Referring Provider Anesthesiology; Visit Provider Anesthesiology
DX: M47.812 Spondylosis without myelopathy or radiculopathy, cervical region (principal); M50.30 Other cervical disc degeneration, unspecified cervical region; M43.12 Spondylolisthesis, cervical region; M79.18 Myalgia, other site; G89.4 Chronic pain syndrome
CPT/HCPCS: 72050; 99214

== ENCOUNTER → 2023-05-30 12:50 | Outpatient (CLI) | payer MEDICARE, OTHER, SELFPAY ==
[2023-05-30 14:07] LABS: Hematocrit 31.6 % (36-46); Hemoglobin 10.5 g/dL (12.0-16.0); Mean Corpuscular HGB Conc 33.1 % (30-36); Mean Corpuscular Hemoglobin 30.2 PG (26-34); Platelet Count 281 X10^3/uL (150-400); Red Blood Cell Count 3.48 X10^6/uL (4.0-5.2); Red Cell Distribution Width 13.1 % (11.6-14.8); White Blood Cell Count 5.7 X10^3/uL (4.5-11.0)
[2023-05-30 14:23] LABS: Alanine Aminotransferase 12 IU/L (<35); Albumin 3.8 g/dL (3.5-5.0); Alkaline Phosphatase 79 U/L (38-126); Aspartate Aminotransferase 18 IU/L (14-36); BUN Creatinine Ratio 35.3 (6-22); Bilirubin Total 0.4 mg/dL (0.2-1.3); Blood Urea Nitrogen 59 mg/dL (7-17); Calcium 9.3 mg/dL (8.4-10.2); Carbon Dioxide 22 mmol/L (22-32); Chloride 107 mmol/L (98-107); Cholesterol 201 mg/dL (140-199); Estimated Glomerular Filt Rate 32 mL/min (>60); Globulin 3.7 g/dL (1.7-4.1); Glucose 77 mg/dL (80-110); HDL Cholesterol 91 mg/dL (40-60); HEMOLYSIS < 15 (0-50); LDL Cholesterol Calculated 76 mg/dL (<100); Potassium 5.1 mmol/L (3.4-5.1); Sodium 136 mmol/L (137-145); Total Protein 7.5 g/dL (6.3-8.2); Triglycerides 168 mg/dL (35-150)
[2023-05-30 14:52] LABS: TSH w/ Reflex to FT4 2.73 uIU/mL (0.47-4.68)
== END ==
PROVIDERS: Family Provider Internal Medicine; PCP Internal Medicine; Referring Provider Internal Medicine; Visit Provider Internal Medicine
DX: E78.2 Mixed hyperlipidemia (principal); I10 Essential (primary) hypertension; N18.30 Chronic kidney disease, stage 3 unspecified
CPT/HCPCS: 36415; 80053; 80061; 84443; 85027

== ENCOUNTER → 2023-07-07 11:22 | Outpatient (CLI) | payer MEDICARE, OTHER, SELFPAY ==
--- NOTE | 2023-07-07 11:24 | DI.RAD.S_ITS ---
PROCEDURE: XR HIP W PEL IF DONE LT 2V INDICATIONS: Left hip pain TECHNIQUE: AP pelvis with lateral view(s) of the left hip(s). COMPARISON: [facility], , PELVIS 1 OR 2 VIEWS, 03/04/2016, 17:38. FINDINGS: Bones: No fractures or dislocations. Pelvic ring appears intact. Dysplastic appearance of the left hip. Small areas of heterotopic calcification. Is No suspicious bony lesions. Soft tissues: Prominent stool in the colon. No suspicious soft tissue calcifications. Pump device overlying the left pelvis. Clips in the pelvis. IMPRESSION: No fracture identified. Dysplastic left hip is similar in appearance. Prominent stool in the colon. Dictated by: Alfonso Vernon M.D. on 07/07/2023 at 12:46 Approved by: Alfonso Vernon M.D. on 07/07/2023 at 12:50
== END ==
LOC: RAD 11:23
PROVIDERS: Family Provider Internal Medicine; PCP Internal Medicine; Referring Provider Anesthesiology; Visit Provider Anesthesiology
DX: M25.552 Pain in left hip (principal); Z97.8 Presence of other specified devices
CPT/HCPCS: 73502

== ENCOUNTER → 2023-07-19 14:17 | Outpatient (CLI) | payer MEDICARE, OTHER, SELFPAY ==
--- NOTE | 2023-07-19 14:19 | DI.RAD.S_ITS ---
PROCEDURE: XR CERVICAL SPINE 2V OR 3V INDICATIONS: neck pain/fever after cervical injection TECHNIQUE: 3 view(s) of the cervical spine were acquired. COMPARISON: [facility], , XR CERVICAL SPINE 4V OR 5V, 03/08/2023, 12:31. FINDINGS: Bones: No fractures or dislocations to the T1 level. 4 mm anterolisthesis of C3 on C4 . Loss of height, degenerative endplate changes and bilateral facet hypertrophic changes are noted throughout cervical spine. The lateral masses of C1 appear intact on the odontoid view. No suspicious bony lesions. Soft tissues: No prevertebral soft tissue swelling. Linear density in dorsal soft tissue projecting at C5 and C6 level dorsal to the spinous process suggest clinical correlation. IMPRESSION: Moderate degenerative disc disease throughout cervical spine. No acute fracture or dislocation. Linear radiodensity in soft tissue dorsal to cervical spine at C5-6 level, suggest clinical correlation for possible bandage in this area. Dictated by: Lester Quiñones M.D. on 07/19/2023 at 18:18 Approved by: Lester Quiñones M.D. on 07/19/2023 at 18:20
[2023-07-19 15:40] LABS: Add Manual Diff / Slide Review NO; Basophils Absolute Auto 0 /uL (0-100); Basophils Percent Auto 0.3 % (0-2); Eosinophils Absolute Auto 100 /uL (0-450); Eosinophils Percent Auto 0.9 % (2-4); Hematocrit 30.1 % (36-46); Hemoglobin 10.1 g/dL (12.0-16.0); Lymphocytes Absolute Auto 1100 /uL (1100-4500); Lymphocytes Percent Auto 7.9 % (25-40); Mean Corpuscular HGB Conc 33.5 % (30-36); Mean Corpuscular Hemoglobin 30.4 PG (26-34); Mean Corpuscular Volume 90.6 fL (80-100); Monocytes Absolute Auto 600 /uL (0-900); Monocytes Percent Auto 4.3 % (3-14); Neutrophils Absolute Auto 11800 /uL (1500-7000); Neutrophils Percent Auto 86.6 % (50-75); Platelet Count 445 X10^3/uL (150-400); Red Blood Cell Count 3.32 X10^6/uL (4.0-5.2); Red Cell Distribution Width 13.3 % (11.6-14.8); White Blood Cell Count 13.7 X10^3/uL (4.5-11.0)
[2023-07-19 16:36] LABS: Alanine Aminotransferase 10 IU/L (<35); Albumin 3.9 g/dL (3.5-5.0); Albumin Globulin Ratio 1.2 (1.0-2.8); Alkaline Phosphatase 86 U/L (38-126); Aspartate Aminotransferase 13 IU/L (14-36); BUN Creatinine Ratio 38.9 (6-22); Bilirubin Total 0.4 mg/dL (0.2-1.3); C-Reactive Protein Quant 5.7 mg/dL (<1.0); Calcium 9.3 mg/dL (8.4-10.2); Carbon Dioxide 18 mmol/L (22-32); Chloride 106 mmol/L (98-107); Estimated Glomerular Filt Rate 16 mL/min (>60); Globulin 3.2 g/dL (1.7-4.1); Glucose 127 mg/dL (80-110); HEMOLYSIS < 15 (0-50); Potassium 5.1 mmol/L (3.4-5.1); Sodium 137 mmol/L (137-145); Total Protein 7.1 g/dL (6.3-8.2)
[2023-07-19 16:37] LABS: Erythrocyte Sedimentation Rate 124 MM/HR (0-20)
[2023-07-19 16:39] LABS: Blood Urea Nitrogen 112 mg/dL (7-17)
== END ==
PROVIDERS: Family Provider Internal Medicine; PCP Internal Medicine; Referring Provider Internal Medicine; Visit Provider Internal Medicine
DX: R50.9 Fever, unspecified (principal); M50.30 Other cervical disc degeneration, unspecified cervical region
CPT/HCPCS: 36415; 72040; 80053; 85025; 85651; 86140

== ENCOUNTER 2023-10-26 14:43 | Emergency (ER) | payer MEDICARE, OTHER, SELFPAY ==
[2023-10-26] VITALS (13 sets, daily range): BP systolic 120–158; BP diastolic 58–86; PULSE 61–92; RESP 15; TEMP 37.2; O2SAT 95–99; BMI 19.1
--- NOTE | 2023-10-26 15:50 | ED_ITS ---
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 # (Auto) 500 200 (0-900) /uL Eos # (Auto) 100 100 (0-450) /uL Baso # (Auto) 100 0 (0-100) /uL Sodium 129 L 134 L (137-145) mmol/L Potassium 3.6 3.3 L (3.4-5.1) mmol/L Chloride 100 106 (98-107) mmol/L Carbon Dioxide 16 L 15 L (22-32) mmol/L BUN 101 H 88 H (7-17) mg/dL Creatinine 2.06 H 2.01 H (0.52-1.04) mg/dL Estimated GFR 24 L 25 L (>60) mL/min BUN/Creatinine Ratio 49.0 H 43.8 H (6-22) Glucose 141 H 129 H (80-110) mg/dL Lactate 0.6 L (0.7-2.1) mmol/L Calcium 8.8 8.1 L (8.4-10.2) mg/dL Total Bilirubin 0.4 (0.2-1.3) mg/dL AST 20 (14-36) IU/L ALT 14 (<35) IU/L Alkaline Phosphatase 71 (38-126) U/L Total Protein 7.5 (6.3-8.2) g/dL Albumin 3.8 (3.5-5.0) g/dL Globulin 3.7 (1.7-4.1) g/dL Albumin/Globulin Ratio 1.0 (1.0-2.8) Procalcitonin 0.283 (<0.5) ng/mL Urine RBC 0-1/hpf (0-5/HPF) Urine WBC 5-10/hpf H (0-5/HPF) Ur Squamous Epith Cells 0-1 /hpf (0-5/HPF) Urine Bacteria Moderate (10-30) H (None) Urine Mucus 2+ H (Negative) Ur Culture Indicated? Specimen cultured Vol Urine Centrifuged Low vol <1ml unspun A Random Vancomycin (10-40) ug/mL 10/27/23 10/28/23 10/28/23 Range/Units 11:36 05:55 09:34 WBC 9.3 7.7 (4.5-11.0) X10^3/uL RBC 2.49 L 2.40 L (4.0-5.2) X10^6/uL Hgb 7.4 L 7.2 L (12.0-16.0) g/dL Hct 22.2 L 21.5 L (36-46) % MCV 89.1 89.7 (80-100) fL MCH 29.8 29.8 (26-34) PG MCHC 33.4 33.3 (30-36) % RDW 13.4 13.2 (11.6-14.8) % Plt Count 334 313 (150-400) X10^3/uL Neut % (Auto) 90.5 H 83.4 H (50-75) % Lymph % (Auto) 3.9 L 7.6 L (25-40) % Saunders % (Auto) 4.0 6.4 (3-14) % Eos % (Auto) 1.1 L 2.1 (2-4) % Baso % (Auto) 0.5 0.5 (0-2) % Neut # (Auto) 8400 H 6400 (0145-0253) /uL Lymph # (Auto) 400 L 600 L (2883-8339) /uL Saunders # (Auto) 400 500 (0-900) /uL Eos # (Auto) 100 200 (0-450) /uL Baso # (Auto) 0 0 (0-100) /uL Sodium 134 L (137-145) mmol/L Potassium 3.4 (3.4-5.1) mmol/L Chloride 109 H (98-107) mmol/L Carbon Dioxide 14 L (22-32) mmol/L BUN 69 H (7-17) mg/dL Creatinine 1.98 H (0.52-1.04) mg/dL Estimated GFR 26 L (>60) mL/min BUN/Creatinine Ratio 34.8 H (6-22) Glucose 89 (80-110) mg/dL Lactate (0.7-2.1) mmol/L Calcium 7.9 L (8.4-10.2) mg/dL Total Bilirubin (0.2-1.3) mg/dL AST (14-36) IU/L ALT (<35) IU/L Alkaline Phosphatase (38-126) U/L Total Protein (6.3-8.2) g/dL Albumin (3.5-5.0) g/dL Globulin (1.7-4.1) g/dL Albumin/Globulin Ratio (1.0-2.8) Procalcitonin (<0.5) ng/mL Urine RBC (0-5/HPF) Urine WBC (0-5/HPF) Ur Squamous Epith Cells (0-5/HPF) Urine Bacteria (None) Urine Mucus (Negative) Ur Culture Indicated? Vol Urine Centrifuged Random Vancomycin (10-40) ug/mL 10/28/23 Range/Units 17:50 WBC (4.5-11.0) X10^3/uL RBC (4.0-5.2) X10^6/uL Hgb (12.0-16.0) g/dL Hct (36-46) % MCV (80-100) fL MCH (26-34) PG MCHC (30-36) % RDW (11.6-14.8) % Plt Count (150-400) X10^3/uL Neut % (Auto) (50-75) % Lymph % (Auto) (25-40) % Saunders % (Auto) (3-14) % Eos % (Auto) (2-4) % Baso % (Auto) (0-2) % Neut # (Auto) (9859-7033) /uL Lymph # (Auto) (5316-7038) /uL Saunders # (Auto) (0-900) /uL Eos # (Auto) (0-450) /uL Baso # (Auto) (0-100) /uL Sodium (137-145) mmol/L Potassium (3.4-5.1) mmol/L Chloride (98-107) mmol/L Carbon Dioxide (22-32) mmol/L BUN (7-17) mg/dL Creatinine (0.52-1.04) mg/dL Estimated GFR (>60) mL/min BUN/Creatinine Ratio (6-22) Glucose (80-110) mg/dL Lactate (0.7-2.1) mmol/L Calcium (8.4-10.2) mg/dL Total Bilirubin (0.2-1.3) mg/dL AST (14-36) IU/L ALT (<35) IU/L Alkaline Phosphatase (38-126) U/L Total Protein (6.3-8.2) g/dL Albumin (3.5-5.0) g/dL Globulin (1.7-4.1) g/dL Albumin/Globulin Ratio (1.0-2.8) Procalcitonin (<0.5) ng/mL Urine RBC (0-5/HPF) Urine WBC (0-5/HPF) Ur Squamous Epith Cells (0-5/HPF) Urine Bacteria (None) Urine Mucus (Negative) Ur Culture Indicated? Vol Urine Centrifuged Random Vancomycin 10.0 (10-40) ug/mL MDM Narrative Medical decision making narrative: CC: T12 paraplegic 78-year-old woman, paraplegic wound at the age of 16, in her electric wheelchair presents for large sacral decubitus ulcer increasing redness, drainage and pain Complicating co-morbidities: Lifelong paraplegic, hypertension, hyperlipidemia Data collected from: patient Medical records reviewed: Primary care note from October 02 is reviewed Differential considered: Small wound, large wound, osteomyelitis, sepsis Exam documented above, pertinent findings include: Heart and lungs are benign. Urostomy site is healthy. She has a large deep sacral wound, I can visualize the sacrum it looks like it is far deeper. Lab Test results independently reviewed as above. Pertinent findings: CBC shows mild leukocytosis at 12.9 with anemia at 8.3 and 25.1. Platelets are elevated. She does have a left shift. Comparison H&H from June of this year is 10.1 and 30 Chemistries show hyponatremia at 129, chronic kidney disease with creatinine at 2, GFR of 24 this is close to her baseline. Liver studies are unremarkable Imaging studies independently reviewed: Consultations: Treatments: Re-evaluations: Discussion: 78-year-old woman paraplegic since the age of 16 takes excellent care of herself. Seems to understand her medical issues quite well. I suspect that this wound has actually been tracking up for quite a period of time and the skin finally broke down over the weekend which is when she began to notice the drainage. She states she has had some wound care at [facility] and would prefer to start with that hospital. Care was briefly reviewed with our hospitalist. Given the complexity of the wound and likely need for surgical intervention possibly been plastics and flaps recommendation was to find a large facility for admission. This plan is reviewed with the patient. We will begin making phone calls. Care is turned over to Dr. Wolff at change of shift <Kushal Wolff, DO - Last Filed: 10/28/23 19:53> Lab Data Attestation: I reviewed the patient's lab results. Labs: Lab Results 10/26/23 10/26/23 10/27/23 Range/Units 16:25 17:25 07:04 WBC 12.9 H 7.5 (4.5-11.0) X10^3/uL RBC 2.83 L 2.46 L (4.0-5.2) X10^6/uL Hgb 8.3 L 7.3 L (12.0-16.0) g/dL Hct 25.1 L 21.9 L (36-46) % MCV 88.9 88.8 (80-100) fL MCH 29.3 29.7 (26-34) PG MCHC 32.9 33.4 (30-36) % RDW 13.2 13.3 (11.6-14.8) % Plt Count 442 H 322 (150-400) X10^3/uL Neut % (Auto) 88.3 H 87.6 H (50-75) % Lymph % (Auto) 6.5 L 7.3 L (25-40) % Saunders % (Auto) 3.7 3.2 (3-14) % Eos % (Auto) 0.9 L 1.4 L (2-4) % Baso % (Auto) 0.6 0.5 (0-2) % Neut # (Auto) 91556 H 6600 (1396-1181) /uL Lymph # (Auto) 800 L 600 L (9690-8174) /uL Saunders # (Auto) 500 200 (0-900) /uL Eos # (Auto) 100 100 (0-450) /uL Baso # (Auto) 100 0 (0-100) /uL Sodium 129 L 134 L (137-145) mmol/L Potassium 3.6 3.3 L (3.4-5.1) mmol/L Chloride 100 106 (98-107) mmol/L Carbon Dioxide 16 L 15 L (22-32) mmol/L BUN 101 H 88 H (7-17) mg/dL Creatinine 2.06 H 2.01 H (0.52-1.04) mg/dL Estimated GFR 24 L 25 L (>60) mL/min BUN/Creatinine Ratio 49.0 H 43.8 H (6-22) Glucose 141 H 129 H (80-110) mg/dL Lactate 0.6 L (0.7-2.1) mmol/L Calcium 8.8 8.1 L (8.4-10.2) mg/dL Total Bilirubin 0.4 (0.2-1.3) mg/dL AST 20 (14-36) IU/L ALT 14 (<35) IU/L Alkaline Phosphatase 71 (38-126) U/L Total Protein 7.5 (6.3-8.2) g/dL Albumin 3.8 (3.5-5.0) g/dL Globulin 3.7 (1.7-4.1) g/dL Albumin/Globulin Ratio 1.0 (1.0-2.8) Procalcitonin 0.283 (<0.5) ng/mL Urine RBC 0-1/hpf (0-5/HPF) Urine WBC 5-10/hpf H (0-5/HPF) Ur Squamous Epith Cells 0-1 /hpf (0-5/HPF) Urine Bacteria Moderate (10-30) H (None) Urine Mucus 2+ H (Negative) Ur Culture Indicated? Specimen cultured Vol Urine Centrifuged Low vol <1ml unspun A Random Vancomycin (10-40) ug/mL 10/27/23 10/28/23 10/28/23 Range/Units 11:36 05:55 09:34 WBC 9.3 7.7 (4.5-11.0) X10^3/uL RBC 2.49 L 2.40 L (4.0-5.2) X10^6/uL Hgb 7.4 L 7.2 L (12.0-16.0) g/dL Hct 22.2 L 21.5 L (36-46) % MCV 89.1 89.7 (80-100) fL MCH 29.8 29.8 (26-34) PG MCHC 33.4 33.3 (30-36) % RDW 13.4 13.2 (11.6-14.8) % Plt Count 334 313 (150-400) X10^3/uL Neut % (Auto) 90.5 H 83.4 H (50-75) % Lymph % (Auto) 3.9 L 7.6 L (25-40) % Saunders % (Auto) 4.0 6.4 (3-14) % Eos % (Auto) 1.1 L 2.1 (2-4) % Baso % (Auto) 0.5 0.5 (0-2) % Neut # (Auto) 8400 H 6400 (1683-6896) /uL Lymph # (Auto) 400 L 600 L (1850-1707) /uL Saunders # (Auto) 400 500 (0-900) /uL Eos # (Auto) 100 200 (0-450) /uL Baso # (Auto) 0 0 (0-100) /uL Sodium 134 L (137-145) mmol/L Potassium 3.4 (3.4-5.1) mmol/L Chloride 109 H (98-107) mmol/L Carbon Dioxide 14 L (22-32) mmol/L BUN 69 H (7-17) mg/dL Creatinine 1.98 H (0.52-1.04) mg/dL Estimated GFR 26 L (>60) mL/min BUN/Creatinine Ratio 34.8 H (6-22) Glucose 89 (80-110) mg/dL Lactate (0.7-2.1) mmol/L Calcium 7.9 L (8.4-10.2) mg/dL Total Bilirubin (0.2-1.3) mg/dL AST (14-36) IU/L ALT (<35) IU/L Alkaline Phosphatase (38-126) U/L Total Protein (6.3-8.2) g/dL Albumin (3.5-5.0) g/dL Globulin (1.7-4.1) g/dL Albumin/Globulin Ratio (1.0-2.8) Procalcitonin (<0.5) ng/mL Urine RBC (0-5/HPF) Urine WBC (0-5/HPF) Ur Squamous Epith Cells (0-5/HPF) Urine Bacteria (None) Urine Mucus (Negative) Ur Culture Indicated? Vol Urine Centrifuged Random Vancomycin (10-40) ug/mL 10/28/23 Range/Units 17:50 WBC (4.5-11.0) X10^3/uL RBC (4.0-5.2) X10^6/uL Hgb (12.0-16.0) g/dL Hct (36-46) % MCV (80-100) fL MCH (26-34) PG MCHC (30-36) % RDW (11.6-14.8) % Plt Count (150-400) X10^3/uL Neut % (Auto) (50-75) % Lymph % (Auto) (25-40) % Saunders % (Auto) (3-14) % Eos % (Auto) (2-4) % Baso % (Auto) (0-2) % Neut # (Auto) (5107-3662) /uL Lymph # (Auto) (0345-1446) /uL Saunders # (Auto) (0-900) /uL Eos # (Auto) (0-450) /uL Baso # (Auto) (0-100) /uL Sodium (137-145) mmol/L Potassium (3.4-5.1) mmol/L Chloride (98-107) mmol/L Carbon Dioxide (22-32) mmol/L BUN (7-17) mg/dL Creatinine (0.52-1.04) mg/dL Estimated GFR (>60) mL/min BUN/Creatinine Ratio (6-22) Glucose (80-110) mg/dL Lactate (0.7-2.1) mmol/L Calcium (8.4-10.2) mg/dL Total Bilirubin (0.2-1.3) mg/dL AST (14-36) IU/L ALT (<35) IU/L Alkaline Phosphatase (38-126) U/L Total Protein (6.3-8.2) g/dL Albumin (3.5-5.0) g/dL Globulin (1.7-4.1) g/dL Albumin/Globulin Ratio (1.0-2.8) Procalcitonin (<0.5) ng/mL Urine RBC (0-5/HPF) Urine WBC (0-5/HPF) Ur Squamous Epith Cells (0-5/HPF) Urine Bacteria (None) Urine Mucus (Negative) Ur Culture Indicated? Vol Urine Centrifuged Random Vancomycin 10.0 (10-40) ug/mL Imaging Data CT scan - abdomen/pelvis: Radiologist's Impression: PROCEDURE: CT ABDOMEN PELVIS WO CON INDICATIONS: huge decubitus ulcer, ? osteo TECHNIQUE: Axial sections were acquired from the lung bases to the pubic symphysis. Coronal and sagittal reformats were performed. For radiation dose reduction, the following was used: automated exposure control, adjustment of mA and/or kV according to patient size. COMPARISON: None. FINDINGS: Image quality: Diagnostic. Lower Chest: No significant findings. URINARY: Right Kidney: Ycri-bx-kcjycvgm hydronephrosis without obstructing stone. Right Ureter: Zbja-kk-evwuthod hydroureter extending to the level of neobladder. No obstructing stone is seen. Left Kidney: Mild hydronephrosis without obstructing stones. Left Ureter: Nvjl-fw-smmqepbv left hydroureter extending to the level of neobladder without obstructing stone. 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 No gross wall thickening or mass is seen in the 0 bladder. No calcified bladder stones. ABDOMEN: Liver: No contour-deforming solid mass. Gallbladder: Gallbladder is surgically absent. Biliary ducts: No biliary dilation. Pancreas: No ductal dilation. Spleen: Size is within normal limits. Adrenal Glands: No adrenal nodules. Stomach and Bowel: No evidence of bowel obstruction or abnormal bowel wall thickening. No abscess collection. Peritoneum: No abnormal intraperitoneal fluid. No free air. Ventral Wall: No hernia. Abdominal Nodes: No enlarged retroperitoneal or mesenteric lymph nodes. Vessels: Aorta and inferior vena cava are normal in size. PELVIS: Pelvic Organs: Unremarkable. Pelvic Nodes: Unremarkable. Miscellaneous: Large full-thickness decubitus ulcer in lower back at the level of lower sacrum/coccyx. Ulceration involving inferior right gluteal region/upper thigh is also seen. No obvious discrete drainable abscess collection is identified. Bones: Subtle cortical erosion involving lower sacrum/coccyx adjacent to the ulceration concerning for osteomyelitis. No evidence of pathologic fracture. No other area of abnormal bony erosion is seen. IMPRESSION: 1. Full-thickness decubitus ulceration and ulceration involving right inferior gluteal region/upper thigh with extensive surrounding cellulitis. No discrete drainable abscess collection. 2. Finding is suggestive of osteomyelitis involving lower sacrum/coccyx deep to the site of ulceration. 3. No peritoneal abscess collection. No free fluid or free air. No evidence of bowel obstruction. 4. Prior cystectomy with neobladder construction. Tulo-so-qxpimnpu bilateral hydronephrosis and hydroureter extending to the level of neobladder without obstructing stones which may represent reflux. MDM Narrative Medical decision making narrative: CC: T12 paraplegic 78-year-old woman, paraplegic wound at the age of 16, in her electric wheelchair presents for large sacral decubitus ulcer increasing redness, drainage and pain Complicating co-morbidities: Lifelong paraplegic, hypertension, hyperlipidemia Data collected from: patient Medical records reviewed: Primary care note from October 02 is reviewed Differential considered: Small wound, large wound, osteomyelitis, sepsis Exam documented above, pertinent findings include: Heart and lungs are benign. Urostomy site is healthy. She has a large deep sacral wound, I can visualize the sacrum it looks like it is far deeper. Lab Test results independently reviewed as above. Pertinent findings: CBC shows mild leukocytosis at 12.9 with anemia at 8.3 and 25.1. Platelets are elevated. She does have a left shift. Comparison H&H from June of this year is 10.1 and 30 Chemistries show hyponatremia at 129, chronic kidney disease with creatinine at 2, GFR of 24 this is close to her baseline. Liver studies are unremarkable Imaging studies independently reviewed: Consultations: Treatments: Re-evaluations: Discussion: 78-year-old woman paraplegic since the age of 16 takes excellent care of herself. Seems to understand her medical issues quite well. I suspect that this wound has actually been tracking up for quite a period of time and the skin finally broke down over the weekend which is when she began to notice the drainage. She states she has had some wound care at [facility] and would prefer to start with that hospital. Care was briefly reviewed with our hospitalist. Given the complexity of the wound and likely need for surgical intervention possibly been plastics and flaps recommendation was to find a large facility for admission. This plan is reviewed with the patient. We will begin making phone calls. Care is turned over to Dr. Wolff at change of shift Dr wolff: Received turned over. Review patient's history and physical and workup up to this point. Patient is alert and oriented. Labs are relatively unremarkable. Patient was started on antibiotics given the CT scan result in her clinical presentation today. She remained stable. I do feel that the patient would benefit from a transfer to tertiary care facility where Infectious Disease, plastic surgery, general surgery and Wound Care is available. Attempted to contact multiple places without any bed availability. Patient will remain here in the emergency department until disposition can be med. Care turned over to day provider change of shift to continue to observe until disposition. Patient's home medications have been ordered. Dr. Reis: Patient signed out to me by Dr. Wolff I have seen evaluated patient myself. Awake alert appears well. Her wound is foul-smelling, cultures pending she has been getting Rocephin and vancomycin added. Not septic. She has a full-thickness decubitus ulceration. Awaiting placement. Multiple places without bed availability [facility] involved. Potential at [facility]. Patient remained stable throughout the day. Multiple places remain full initially thought [facility] might be an option however she remains on their wait list even at the end of the day. Discussion with Dr. Richey hospitalist in regards to need for transfer but difficult time to find a bed available. Reports that if patient is still here tomorrow at a 48 hour blanca patient may be admitted to the hospital Patient signed out to Dr. Mariella Wolff: overnight 10/26-10/27: patient has been stable overnight. Daily medications have been administered. Care turned over to day provider to continue to observe until disposition. October 28, 2023 7:00 a.m..Sejal: ?sign out from Dr Wolff, patient has been stable overnight. Home medications antibiotics have been ongoing during course of stay. Patient on many waiting lists in surrounding area for transfer for higher level of care however, may need to admit here as ongoing almost 48 hours in the emergency department. May need to contact hospitalist today on-call for admission 8:45 a.m.. I spoke with General surgery Dr. Aguilar, she is reviewed CT imaging and recommends patient to be transferred. There are no wound care nurses that see patients on the floor. We confirmed this with administration/greenhouse grower. Can not admit patient here. We will continue to try to transfer. Wound care nurses do not do consult here but will provide supplies. 3:00 p.m.. Wound care nurse did come here to provide services and supplies how to do wound dressing. Please see notes from [facility] nurse here in the ER. They will be available starting on Tuesday next week after the holidays for floor consults. 6:00 p.m.. Sejal: Sign out to Dr Wolff, no new issues during course stay but wound care nurses would be available starting Tuesday for floor consult. They were here today to show how to do wound care and supplies. Still waiting for transfer. Patient on [facility] Dr wolff: Received turned over. Reviewed the day's events. Patient remained stable. Discussed the case with Dr. More on-call for General surgery at [facility] who agreed that they would see the patient and consult upon transfer. I then discussed the case with Dr. Keyes hospitalist on-call who accepts the patient for transfer. Patient is stable for transport. <Viviana Reis, - Last Filed: 10/29/23 11:17> Lab Data Labs: Lab Results 10/26/23 10/26/23 10/27/23 Range/Units 16:25 17:25 07:04 WBC 12.9 H 7.5 (4.5-11.0) X10^3/uL RBC 2.83 L 2.46 L (4.0-5.2) X10^6/uL Hgb 8.3 L 7.3 L (12.0-16.0) g/dL Hct 25.1 L 21.9 L (36-46) % MCV 88.9 88.8 (80-100) fL MCH 29.3 29.7 (26-34) PG MCHC 32.9 33.4 (30-36) % RDW 13.2 13.3 (11.6-14.8) % Plt Count 442 H 322 (150-400) X10^3/uL Neut % (Auto) 88.3 H 87.6 H (50-75) % Lymph % (Auto) 6.5 L 7.3 L (25-40) % Saunders % (Auto) 3.7 3.2 (3-14) % Eos % (Auto) 0.9 L 1.4 L (2-4) % Baso % (Auto) 0.6 0.5 (0-2) % Neut # (Auto) 15304 H 6600 (0931-4754) /uL Lymph # (Auto) 800 L 600 L (1044-9793) /uL Saunders # (Auto) 500 200 (0-900) /uL Eos # (Auto) 100 100 (0-450) /uL Baso # (Auto) 100 0 (0-100) /uL Sodium 129 L 134 L (137-145) mmol/L Potassium 3.6 3.3 L (3.4-5.1) mmol/L Chloride 100 106 (98-107) mmol/L Carbon Dioxide 16 L 15 L (22-32) mmol/L BUN 101 H 88 H (7-17) mg/dL Creatinine 2.06 H 2.01 H (0.52-1.04) mg/dL Estimated GFR 24 L 25 L (>60) mL/min BUN/Creatinine Ratio 49.0 H 43.8 H (6-22) Glucose 141 H 129 H (80-110) mg/dL Lactate 0.6 L (0.7-2.1) mmol/L Calcium 8.8 8.1 L (8.4-10.2) mg/dL Total Bilirubin 0.4 (0.2-1.3) mg/dL AST 20 (14-36) IU/L ALT 14 (<35) IU/L Alkaline Phosphatase 71 (38-126) U/L Total Protein 7.5 (6.3-8.2) g/dL Albumin 3.8 (3.5-5.0) g/dL Globulin 3.7 (1.7-4.1) g/dL Albumin/Globulin Ratio 1.0 (1.0-2.8) Procalcitonin 0.283 (<0.5) ng/mL Urine RBC 0-1/hpf (0-5/HPF) Urine WBC 5-10/hpf H (0-5/HPF) Ur Squamous Epith Cells 0-1 /hpf (0-5/HPF) Urine Bacteria Moderate (10-30) H (None) Urine Mucus 2+ H (Negative) Ur Culture Indicated? Specimen cultured Vol Urine Centrifuged Low vol <1ml unspun A Random Vancomycin (10-40) ug/mL 10/27/23 10/28/23 10/28/23 Range/Units 11:36 05:55 09:34 WBC 9.3 7.7 (4.5-11.0) X10^3/uL RBC 2.49 L 2.40 L (4.0-5.2) X10^6/uL Hgb 7.4 L 7.2 L (12.0-16.0) g/dL Hct 22.2 L 21.5 L (36-46) % MCV 89.1 89.7 (80-100) fL MCH 29.8 29.8 (26-34) PG MCHC 33.4 33.3 (30-36) % RDW 13.4 13.2 (11.6-14.8) % Plt Count 334 313 (150-400) X10^3/uL Neut % (Auto) 90.5 H 83.4 H (50-75) % Lymph % (Auto) 3.9 L 7.6 L (25-40) % Saunders % (Auto) 4.0 6.4 (3-14) % Eos % (Auto) 1.1 L 2.1 (2-4) % Baso % (Auto) 0.5 0.5 (0-2) % Neut # (Auto) 8400 H 6400 (4724-9501) /uL Lymph # (Auto) 400 L 600 L (5623-5024) /uL Saunders # (Auto) 400 500 (0-900) /uL Eos # (Auto) 100 200 (0-450) /uL Baso # (Auto) 0 0 (0-100) /uL Sodium 134 L (137-145) mmol/L Potassium 3.4 (3.4-5.1) mmol/L Chloride 109 H (98-107) mmol/L Carbon Dioxide 14 L (22-32) mmol/L BUN 69 H (7-17) mg/dL Creatinine 1.98 H (0.52-1.04) mg/dL Estimated GFR 26 L (>60) mL/min BUN/Creatinine Ratio 34.8 H (6-22) Glucose 89 (80-110) mg/dL Lactate (0.7-2.1) mmol/L Calcium 7.9 L (8.4-10.2) mg/dL Total Bilirubin (0.2-1.3) mg/dL AST (14-36) IU/L ALT (<35) IU/L Alkaline Phosphatase (38-126) U/L Total Protein (6.3-8.2) g/dL Albumin (3.5-5.0) g/dL Globulin (1.7-4.1) g/dL Albumin/Globulin Ratio (1.0-2.8) Procalcitonin (<0.5) ng/mL Urine RBC (0-5/HPF) Urine WBC (0-5/HPF) Ur Squamous Epith Cells (0-5/HPF) Urine Bacteria (None) Urine Mucus (Negative) Ur Culture Indicated? Vol Urine Centrifuged Random Vancomycin (10-40) ug/mL 10/28/23 Range/Units 17:50 WBC (4.5-11.0) X10^3/uL RBC (4.0-5.2) X10^6/uL Hgb (12.0-16.0) g/dL Hct (36-46) % MCV (80-100) fL MCH (26-34) PG MCHC (30-36) % RDW (11.6-14.8) % Plt Count (150-400) X10^3/uL Neut % (Auto) (50-75) % Lymph % (Auto) (25-40) % Saunders % (Auto) (3-14) % Eos % (Auto) (2-4) % Baso % (Auto) (0-2) % Neut # (Auto) (0586-3311) /uL Lymph # (Auto) (6742-1268) /uL Saunders # (Auto) (0-900) /uL Eos # (Auto) (0-450) /uL Baso # (Auto) (0-100) /uL Sodium (137-145) mmol/L Potassium (3.4-5.1) mmol/L Chloride (98-107) mmol/L Carbon Dioxide (22-32) mmol/L BUN (7-17) mg/dL Creatinine (0.52-1.04) mg/dL Estimated GFR (>60) mL/min BUN/Creatinine Ratio (6-22) Glucose (80-110) mg/dL Lactate (0.7-2.1) mmol/L Calcium (8.4-10.2) mg/dL Total Bilirubin (0.2-1.3) mg/dL AST (14-36) IU/L ALT (<35) IU/L Alkaline Phosphatase (38-126) U/L Total Protein (6.3-8.2) g/dL Albumin (3.5-5.0) g/dL Globulin (1.7-4.1) g/dL Albumin/Globulin Ratio (1.0-2.8) Procalcitonin (<0.5) ng/mL Urine RBC (0-5/HPF) Urine WBC (0-5/HPF) Ur Squamous Epith Cells (0-5/HPF) Urine Bacteria (None) Urine Mucus (Negative) Ur Culture Indicated? Vol Urine Centrifuged Random Vancomycin 10.0 (10-40) ug/mL MDM Narrative Medical decision making narrative: CC: T12 paraplegic 78-year-old woman, paraplegic wound at the age of 16, in her electric wheelchair presents for large sacral decubitus ulcer increasing redness, drainage and pain Complicating co-morbidities: Lifelong paraplegic, hypertension, hyperlipidemia Data collected from: patient Medical records reviewed: Primary care note from October 02 is reviewed Differential considered: Small wound, large wound, osteomyelitis, sepsis Exam documented above, pertinent findings include: Heart and lungs are benign. Urostomy site is healthy. She has a large deep sacral wound, I can visualize the sacrum it looks like it is far deeper. Lab Test results independently reviewed as above. Pertinent findings: CBC shows mild leukocytosis at 12.9 with anemia at 8.3 and 25.1. Platelets are elevated. She does have a left shift. Comparison H&H from June of this year is 10.1 and 30 Chemistries show hyponatremia at 129, chronic kidney disease with creatinine at 2, GFR of 24 this is close to her baseline. Liver studies are unremarkable Imaging studies independently reviewed: Consultations: Treatments: Re-evaluations: Discussion: 78-year-old woman paraplegic since the age of 16 takes excellent care of herself. Seems to understand her medical issues quite well. I suspect that this wound has actually been tracking up for quite a period of time and the skin finally broke down over the weekend which is when she began to notice the drainage. She states she has had some wound care at [facility] and would prefer to start with that hospital. Care was briefly reviewed with our hospitalist. Given the complexity of the wound and likely need for surgical intervention possibly been plastics and flaps recommendation was to find a large facility for admission. This plan is reviewed with the patient. We will begin making phone calls. Care is turned over to Dr. Wolff at change of shift Dr wolff: Received turned over. Review patient's history and physical and workup up to this point. Patient is alert and oriented. Labs are relatively unremarkable. Patient was started on antibiotics given the CT scan result in her clinical presentation today. She remained stable. I do feel that the patient would benefit from a transfer to tertiary care facility where Infectious Disease, plastic surgery, general surgery and Wound Care is available. Attempted to contact multiple places without any bed availability. Patient will remain here in the emergency department until disposition can be med. Care turned over to day provider change of shift to continue to observe until disposition. Patient's home medications have been ordered. Dr. Reis: Patient signed out to me by Dr. Wolff I have seen evaluated patient myself. Awake alert appears well. Her wound is foul-smelling, cultures pending she has been getting Rocephin and vancomycin added. Not septic. She has a full-thickness decubitus ulceration. Awaiting placement. Multiple places without bed availability [facility] involved. Potential at [facility]. Patient remained stable throughout the day. Multiple places remain full initially thought [facility] might be an option however she remains on their wait list even at the end of the day. Discussion with Dr. Richey hospitalist in regards to need for transfer but difficult time to find a bed available. Reports that if patient is still here tomorrow at a 48 hour blanca patient may be admitted to the hospital Patient signed out to Dr. Wolff <Tien Post MD - Last Filed: 11/05/23 11:17> Lab Data Labs: Lab Results 10/26/23 10/26/23 10/27/23 Range/Units 16:25 17:25 07:04 WBC 12.9 H 7.5 (4.5-11.0) X10^3/uL RBC 2.83 L 2.46 L (4.0-5.2) X10^6/uL Hgb 8.3 L 7.3 L (12.0-16.0) g/dL Hct 25.1 L 21.9 L (36-46) % MCV 88.9 88.8 (80-100) fL MCH 29.3 29.7 (26-34) PG MCHC 32.9 33.4 (30-36) % RDW 13.2 13.3 (11.6-14.8) % Plt Count 442 H 322 (150-400) X10^3/uL Neut % (Auto) 88.3 H 87.6 H (50-75) % Lymph % (Auto) 6.5 L 7.3 L (25-40) % Saunders % (Auto) 3.7 3.2 (3-14) % Eos % (Auto) 0.9 L 1.4 L (2-4) % Baso % (Auto) 0.6 0.5 (0-2) % Neut # (Auto) 44694 H 6600 (4824-1158) /uL Lymph # (Auto) 800 L 600 L (6982-2675) /uL Saunders # (Auto) 500 200 (0-900) /uL Eos # (Auto) 100 100 (0-450) /uL Baso # (Auto) 100 0 (0-100) /uL Sodium 129 L 134 L (137-145) mmol/L Potassium 3.6 3.3 L (3.4-5.1) mmol/L Chloride 100 106 (98-107) mmol/L Carbon Dioxide 16 L 15 L (22-32) mmol/L BUN 101 H 88 H (7-17) mg/dL Creatinine 2.06 H 2.01 H (0.52-1.04) mg/dL Estimated GFR 24 L 25 L (>60) mL/min BUN/Creatinine Ratio 49.0 H 43.8 H (6-22) Glucose 141 H 129 H (80-110) mg/dL Lactate 0.6 L (0.7-2.1) mmol/L Calcium 8.8 8.1 L (8.4-10.2) mg/dL Total Bilirubin 0.4 (0.2-1.3) mg/dL AST 20 (14-36) IU/L ALT 14 (<35) IU/L Alkaline Phosphatase 71 (38-126) U/L Total Protein 7.5 (6.3-8.2) g/dL Albumin 3.8 (3.5-5.0) g/dL Globulin 3.7 (1.7-4.1) g/dL Albumin/Globulin Ratio 1.0 (1.0-2.8) Procalcitonin 0.283 (<0.5) ng/mL Urine RBC 0-1/hpf (0-5/HPF) Urine WBC 5-10/hpf H (0-5/HPF) Ur Squamous Epith Cells 0-1 /hpf (0-5/HPF) Urine Bacteria Moderate (10-30) H (None) Urine Mucus 2+ H (Negative) Ur Culture Indicated? Specimen cultured Vol Urine Centrifuged Low vol <1ml unspun A Random Vancomycin (10-40) ug/mL 10/27/23 10/28/23 10/28/23 Range/Units 11:36 05:55 09:34 WBC 9.3 7.7 (4.5-11.0) X10^3/uL RBC 2.49 L 2.40 L (4.0-5.2) X10^6/uL Hgb 7.4 L 7.2 L (12.0-16.0) g/dL Hct 22.2 L 21.5 L (36-46) % MCV 89.1 89.7 (80-100) fL MCH 29.8 29.8 (26-34) PG MCHC 33.4 33.3 (30-36) % RDW 13.4 13.2 (11.6-14.8) % Plt Count 334 313 (150-400) X10^3/uL Neut % (Auto) 90.5 H 83.4 H (50-75) % Lymph % (Auto) 3.9 L 7.6 L (25-40) % Saunders % (Auto) 4.0 6.4 (3-14) % Eos % (Auto) 1.1 L 2.1 (2-4) % Baso % (Auto) 0.5 0.5 (0-2) % Neut # (Auto) 8400 H 6400 (3866-6026) /uL Lymph # (Auto) 400 L 600 L (9601-9571) /uL Saunders # (Auto) 400 500 (0-900) /uL Eos # (Auto) 100 200 (0-450) /uL Baso # (Auto) 0 0 (0-100) /uL Sodium 134 L (137-145) mmol/L Potassium 3.4 (3.4-5.1) mmol/L Chloride 109 H (98-107) mmol/L Carbon Dioxide 14 L (22-32) mmol/L BUN 69 H (7-17) mg/dL Creatinine 1.98 H (0.52-1.04) mg/dL Estimated GFR 26 L (>60) mL/min BUN/Creatinine Ratio 34.8 H (6-22) Glucose 89 (80-110) mg/dL Lactate (0.7-2.1) mmol/L Calcium 7.9 L (8.4-10.2) mg/dL Total Bilirubin (0.2-1.3) mg/dL AST (14-36) IU/L ALT (<35) IU/L Alkaline Phosphatase (38-126) U/L Total Protein (6.3-8.2) g/dL Albumin (3.5-5.0) g/dL Globulin (1.7-4.1) g/dL Albumin/Globulin Ratio (1.0-2.8) Procalcitonin (<0.5) ng/mL Urine RBC (0-5/HPF) Urine WBC (0-5/HPF) Ur Squamous Epith Cells (0-5/HPF) Urine Bacteria (None) Urine Mucus (Negative) Ur Culture Indicated? Vol Urine Centrifuged Random Vancomycin (10-40) ug/mL 10/28/23 Range/Units 17:50 WBC (4.5-11.0) X10^3/uL RBC (4.0-5.2) X10^6/uL Hgb (12.0-16.0) g/dL Hct (36-46) % MCV (80-100) fL MCH (26-34) PG MCHC (30-36) % RDW (11.6-14.8) % Plt Count (150-400) X10^3/uL Neut % (Auto) (50-75) % Lymph % (Auto) (25-40) % Saunders % (Auto) (3-14) % Eos % (Auto) (2-4) % Baso % (Auto) (0-2) % Neut # (Auto) (3342-6709) /uL Lymph # (Auto) (0448-5308) /uL Saunders # (Auto) (0-900) /uL Eos # (Auto) (0-450) /uL Baso # (Auto) (0-100) /uL Sodium (137-145) mmol/L Potassium (3.4-5.1) mmol/L Chloride (98-107) mmol/L Carbon Dioxide (22-32) mmol/L BUN (7-17) mg/dL Creatinine (0.52-1.04) mg/dL Estimated GFR (>60) mL/min BUN/Creatinine Ratio (6-22) Glucose (80-110) mg/dL Lactate (0.7-2.1) mmol/L Calcium (8.4-10.2) mg/dL Total Bilirubin (0.2-1.3) mg/dL AST (14-36) IU/L ALT (<35) IU/L Alkaline Phosphatase (38-126) U/L Total Protein (6.3-8.2) g/dL Albumin (3.5-5.0) g/dL Globulin (1.7-4.1) g/dL Albumin/Globulin Ratio (1.0-2.8) Procalcitonin (<0.5) ng/mL Urine RBC (0-5/HPF) Urine WBC (0-5/HPF) Ur Squamous Epith Cells (0-5/HPF) Urine Bacteria (None) Urine Mucus (Negative) Ur Culture Indicated? Vol Urine Centrifuged Random Vancomycin 10.0 (10-40) ug/mL MDM Narrative Medical decision making narrative: CC: T12 paraplegic 78-year-old woman, paraplegic wound at the age of 16, in her electric wheelchair presents for large sacral decubitus ulcer increasing redness, drainage and pain Complicating co-morbidities: Lifelong paraplegic, hypertension, hyperlipidemia Data collected from: patient Medical records reviewed: Primary care note from October 02 is reviewed Differential considered: Small wound, large wound, osteomyelitis, sepsis Exam documented above, pertinent findings include: Heart and lungs are benign. Urostomy site is healthy. She has a large deep sacral wound, I can visualize the sacrum it looks like it is far deeper. Lab Test results independently reviewed as above. Pertinent findings: CBC shows mild leukocytosis at 12.9 with anemia at 8.3 and 25.1. Platelets are elevated. She does have a left shift. Comparison H&H from June of this year is 10.1 and 30 Chemistries show hyponatremia at 129, chronic kidney disease with creatinine at 2, GFR of 24 this is close to her baseline. Liver studies are unremarkable Imaging studies independently reviewed: Consultations: Treatments: Re-evaluations: Discussion: 78-year-old woman paraplegic since the age of 16 takes excellent care of herself. Seems to understand her medical issues quite well. I suspect that this wound has actually been tracking up for quite a period of time and the skin finally broke down over the weekend which is when she began to notice the drainage. She states she has had some wound care at [facility] and would prefer to start with that hospital. Care was briefly reviewed with our hospitalist. Given the complexity of the wound and likely need for surgical intervention possibly been plastics and flaps recommendation was to find a large facility for admission. This plan is reviewed with the patient. We will begin making phone calls. Care is turned over to Dr. Wolff at change of shift Dr wolff: Received turned over. Review patient's history and physical and workup up to this point. Patient is alert and oriented. Labs are relatively unremarkable. Patient was started on antibiotics given the CT scan result in her clinical presentation today. She remained stable. I do feel that the patient would benefit from a transfer to tertiary care facility where Infectious Disease, plastic surgery, general surgery and Wound Care is available. Attempted to contact multiple places without any bed availability. Patient will remain here in the emergency department until disposition can be med. Care turned over to day provider change of shift to continue to observe until disposition. Patient's home medications have been ordered. Dr. Reis: Patient signed out to me by Dr. Wolff I have seen evaluated patient myself. Awake alert appears well. Her wound is foul-smelling, cultures pending she has been getting Rocephin and vancomycin added. Not septic. She has a full-thickness decubitus ulceration. Awaiting placement. Multiple places without bed availability [facility] involved. Potential at [facility]. Patient remained stable throughout the day. Multiple places remain full initially thought [facility] might be an option however she remains on their wait list even at the end of the day. Discussion with Dr. Richey hospitalist in regards to need for transfer but difficult time to find a bed available. Reports that if patient is still here tomorrow at a 48 hour blanca patient may be admitted to the hospital Patient signed out to Dr. Mariella Wolff: overnight 10/26-10/27: patient has been stable overnight. Daily medications have been administered. Care turned over to day provider to continue to observe until disposition. October 28, 2023 7:00 a.m..Sejal: ?sign out from Dr Wolff, patient has been stable overnight. Home medications antibiotics have been ongoing during course of stay. Patient on many waiting lists in surrounding area for transfer for higher level of care however, may need to admit here as ongoing almost 48 hours in the emergency department. May need to contact hospitalist today on-call for admission 8:45 a.m.. I spoke with General surgery Dr. Aguilar, she is reviewed CT imaging and recommends patient to be transferred. There are no wound care nurses that see patients on the floor. We confirmed this with administration/greenhouse grower. Can not admit patient here. We will continue to try to transfer. Wound care nurses do not do consult here but will provide supplies. 3:00 p.m.. Wound care nurse did come here to provide services and supplies how to do wound dressing. Please see notes from [facility] nurse here in the ER. They will be available starting on Tuesday next week after the holidays for floor consults. 6:00 p.m.. Sejal: Sign out to Dr Wolff, no new issues during course stay but wound care nurses would be available starting Tuesday for floor consult. They were here today to show how to do wound care and supplies. Still waiting for transfer. Patient on [facility] Discharge Plan Departure Patient Disposition: er [facility] Clinical Impression: Decubitus ulcer Prescriptions: No Action tretinoin 0.025 % cream See Rx Instructions .ROUTE .COMPLEX Qty: 90 3RF Dose Instruction: APPLY 1 APPLICATION TO AFFECTED AREA IN THE EVENING TO FACE ONCE DAILY EXTERNALLY Rx Instructions: APPLY 1 APPLICATION TO AFFECTED AREA IN THE EVENING TO FACE ONCE DAILY EXTERNALLY diclofenac sodium 3 % gel 1 applic topical BID Qty: 100 3RF losartan 100 mg tablet 100 mg PO DAILY Qty: 90 3RF morphine intrathecal implant pain stimulator T8 intraductal cholecalciferol (vitamin D3) 25 mcg (1,000 unit) capsule 25 mcg PO DAILY carvedilol 6.25 mg tablet 6.25 mg PO BID Qty: 180 3RF Rx Instructions: must administer with a meal/food Premarin 0.625 mg tablet 0.625 mg PO DAILY Qty: 90 3RF clonazepam [Klonopin] 1 mg tablet 1 mg PO BEDTIME PRN (Reason: anxiety) Qty: 90 1RF Rx Instructions: administer 30 minutes before bedtime as needed for anxiety Referrals: Joel Blunt MD [Primary Care Provider] -
--- NOTE | 2023-10-26 16:15 | PC.WOUNDPHOT ---
Addendum entered by Kim Crain R.N. 10/26/23 16:16: Coccyx Original Note:
[2023-10-26 16:32] LABS: Add Manual Diff / Slide Review NO; Basophils Absolute Auto 100 /uL (0-100); Basophils Percent Auto 0.6 % (0-2); Eosinophils Absolute Auto 100 /uL (0-450); Eosinophils Percent Auto 0.9 % (2-4); Hematocrit 25.1 % (36-46); Hemoglobin 8.3 g/dL (12.0-16.0); Lymphocytes Absolute Auto 800 /uL (1100-4500); Lymphocytes Percent Auto 6.5 % (25-40); Mean Corpuscular HGB Conc 32.9 % (30-36); Mean Corpuscular Hemoglobin 29.3 PG (26-34); Mean Corpuscular Volume 88.9 fL (80-100); Monocytes Absolute Auto 500 /uL (0-900); Monocytes Percent Auto 3.7 % (3-14); Neutrophils Absolute Auto 11400 /uL (1500-7000); Neutrophils Percent Auto 88.3 % (50-75); Platelet Count 442 X10^3/uL (150-400); Red Blood Cell Count 2.83 X10^6/uL (4.0-5.2); Red Cell Distribution Width 13.2 % (11.6-14.8); White Blood Cell Count 12.9 X10^3/uL (4.5-11.0)
[2023-10-26 16:46] LABS: Alanine Aminotransferase 14 IU/L (<35); Albumin 3.8 g/dL (3.5-5.0); Alkaline Phosphatase 71 U/L (38-126); Aspartate Aminotransferase 20 IU/L (14-36); Bilirubin Total 0.4 mg/dL (0.2-1.3); Blood Urea Nitrogen 101 mg/dL (7-17); Calcium 8.8 mg/dL (8.4-10.2); Carbon Dioxide 16 mmol/L (22-32); Chloride 100 mmol/L (98-107); Estimated Glomerular Filt Rate 24 mL/min (>60); Globulin 3.7 g/dL (1.7-4.1); Glucose 141 mg/dL (80-110); HEMOLYSIS < 15 (0-50); Potassium 3.6 mmol/L (3.4-5.1); Sodium 129 mmol/L (137-145); Total Protein 7.5 g/dL (6.3-8.2)
[2023-10-26 18:03] LABS: Bacteria Urine Moderate (10-30); Culture Indicated Urine Specimen Cultured; Mucus Urine 2+ (Negative); RBC Urine 0-1/HPF (0-5/HPF); Squamous Epithelial Cell Urine 0-1 /HPF (0-5/HPF); Urine Volume Low Vol <1mL unspun; WBC Urine 5-10/HPF (0-5/HPF)
[2023-10-26] MEDS: cefTRIAXone 1,000 MG in SODIUM CHLORIDE 0.9% 100 ML 200 MG IV (18:51)
[2023-10-26 19:21] LABS: Lactate (Lactic Acid) 0.6 mmol/L (0.7-2.1)
[2023-10-26 19:38] LABS: Procalcitonin 0.283 ng/mL (<0.5)
[2023-10-27] VITALS (71 sets, daily range): BP systolic 77–157; BP diastolic 38–93; PULSE 68–104; RESP 12–20; TEMP 36.8–37.4; O2SAT 96–100
--- NOTE | 2023-10-27 00:08 | PC.NURSE ---
Assumed cares from MARYAN Patten. Pt lying back in [facility]. Denies pain. Wants PM meds. Dr Wolff notified. New orders received.
[2023-10-27] MEDS: clonazePAM 0.5 MG TABLET 1 MG PO ×2 (00:13→21:23)
[2023-10-27] MEDS: carvediloL 3.125 MG TABLET 6.25 MG PO ×3 (00:14→21:11)
[2023-10-27] MEDS: LOSARTAN 50 MG TABLET 100 MG PO (00:14)
--- NOTE | 2023-10-27 00:15 | PC.NURSE ---
Addendum entered by Dori Mackey CNA 10/27/23 16:20: 1620: Called [facility] for an update, stated no movement on the bed availability. Patient is still on wait list Addendum entered by Dori Mackey CNA 10/27/23 11:26: 1125: [facility] called back, still no beds and continuing to work on transfers Addendum entered by Dori Mackey CNA 10/27/23 10:51: 1000- [facility] called back, stated to call back in 4-6 hrs if they haven't reached out yet Addendum entered by Dori Mackey CNA 10/27/23 09:04: 0730- [facility] called back, still boarding patients but patient is on the wait list Original Note: called [facility] they have beds however they do not have staff was told to try tomorrow in the afternoon called [facility] spoke to Stefanie who stated No tenisha no neds we are full called Mary/shayan who suggested we try looking around somewhere else called [facility] spoke to Jessica who said they have no physical beds called Miguel spoke to the [facility] who stated unfortunately not we are at capacity and boarding in our ER called Eleni who took down pt information and will look into it; they then called back spoke to Charge Nurse Cristian and said they are at capacity to call [facility] Been in contact with Renetta from [facility] who stated she is still looking and pt is waitlisted at some hospitals.
[2023-10-27] MEDS: SODIUM CHLORIDE 0.9% 1,000 ML 500 ML IV (02:18)
--- NOTE | 2023-10-27 02:25 | PC.NURSE ---
SBP 70's-80's. Dr Wolff notified. Dr Wolff notified. NS bolus started per MD order.
[2023-10-27] MEDS: SODIUM CHLORIDE 0.9% 1,000 ML 100 ML IV ×2 (04:31→14:08)
--- NOTE | 2023-10-27 06:33 | PC.NURSE ---
aware of SBP 87. IVF running at maintenance.
[2023-10-27 07:11] LABS: Add Manual Diff / Slide Review NO; Basophils Absolute Auto 0 /uL (0-100); Basophils Percent Auto 0.5 % (0-2); Eosinophils Absolute Auto 100 /uL (0-450); Eosinophils Percent Auto 1.4 % (2-4); Hematocrit 21.9 % (36-46); Hemoglobin 7.3 g/dL (12.0-16.0); Lymphocytes Absolute Auto 600 /uL (1100-4500); Lymphocytes Percent Auto 7.3 % (25-40); Mean Corpuscular HGB Conc 33.4 % (30-36); Mean Corpuscular Hemoglobin 29.7 PG (26-34); Mean Corpuscular Volume 88.8 fL (80-100); Monocytes Absolute Auto 200 /uL (0-900); Monocytes Percent Auto 3.2 % (3-14); Neutrophils Absolute Auto 6600 /uL (1500-7000); Neutrophils Percent Auto 87.6 % (50-75); Platelet Count 322 X10^3/uL (150-400); Red Blood Cell Count 2.46 X10^6/uL (4.0-5.2); Red Cell Distribution Width 13.3 % (11.6-14.8); White Blood Cell Count 7.5 X10^3/uL (4.5-11.0)
[2023-10-27 07:21] LABS: BUN Creatinine Ratio 43.8 (6-22); Blood Urea Nitrogen 88 mg/dL (7-17); Calcium 8.1 mg/dL (8.4-10.2); Carbon Dioxide 15 mmol/L (22-32); Chloride 106 mmol/L (98-107); Estimated Glomerular Filt Rate 25 mL/min (>60); Glucose 129 mg/dL (80-110); HEMOLYSIS < 15 (0-50); Potassium 3.3 mmol/L (3.4-5.1); Sodium 134 mmol/L (137-145)
[2023-10-27] MEDS: VANCOMYCIN 1,000 MG/200 ML PIGGYBACK 200 MG IV (07:21)
[2023-10-27] MEDS: cefTRIAXone 1,000 MG in SODIUM CHLORIDE 0.9% 100 ML 200 MG IV (09:16)
[2023-10-27] MEDS: buPROPion SR 100 MG TAB PO (09:19)
[2023-10-27] MEDS: ENOXAPARIN 40 MG/0.4 ML SYRINGE SUBCUT (10:30)
[2023-10-27 11:42] LABS: Add Manual Diff / Slide Review NO; Basophils Absolute Auto 0 /uL (0-100); Basophils Percent Auto 0.5 % (0-2); Eosinophils Absolute Auto 100 /uL (0-450); Eosinophils Percent Auto 1.1 % (2-4); Hematocrit 22.2 % (36-46); Hemoglobin 7.4 g/dL (12.0-16.0); Lymphocytes Absolute Auto 400 /uL (1100-4500); Lymphocytes Percent Auto 3.9 % (25-40); Mean Corpuscular HGB Conc 33.4 % (30-36); Mean Corpuscular Hemoglobin 29.8 PG (26-34); Mean Corpuscular Volume 89.1 fL (80-100); Monocytes Absolute Auto 400 /uL (0-900); Neutrophils Absolute Auto 8400 /uL (1500-7000); Neutrophils Percent Auto 90.5 % (50-75); Platelet Count 334 X10^3/uL (150-400); Red Blood Cell Count 2.49 X10^6/uL (4.0-5.2); Red Cell Distribution Width 13.4 % (11.6-14.8); White Blood Cell Count 9.3 X10^3/uL (4.5-11.0)
--- NOTE | 2023-10-27 15:53 | PC.NURSE ---
no change in wounds . pt repositions herself q 2 hours or more frequently. we were able to get a trapeze on her bed to help with lifting helfself.
[2023-10-27] MEDS: HYDROCODONE/ACET 5/325 TABLET 1 TAB PO (18:21)
--- NOTE | 2023-10-27 19:30 | PC.NURSE ---
This nurse assumed care of patient. Patient lying in bed and now repositioned self to her right side using trapeze that is on her bed, required no additional assistance. This nurse assessed coccyx dressing that was dressed earlier today. dressing clean, dry and intact. No drainage noted at this time. Urostomy draining clear straw colored urine. Patient states she emptied it earlier. Patient provided fresh water and cranberry juice. Bear hugger on for patient preference. NS running at 100ml/hr to right forearm AC. Call light in reach.
[2023-10-28] VITALS (53 sets, daily range): BP systolic 73–162; BP diastolic 40–128; PULSE 73–96; RESP 16–17; TEMP 37.1; O2SAT 98–100
[2023-10-28] MEDS: SODIUM CHLORIDE 0.9% 1,000 ML 100 ML IV ×3 (00:20→18:38)
--- NOTE | 2023-10-28 03:08 | PC.NURSE ---
00:00- patient's BP 73/40, patient was sleeping on her side, recheck at 00:02 patient BP 78/45, patient woken up and repositioned, BP 81/45. Dr. Wolff made aware of all blood pressures and current one. Dr Wolff states he is aware and familiar with this patient, no new orders. Patient awake, asymptomatic and NS running at 100ml/hr. Will continue to monitor. 0200- patient BP 87/49. patient sleeping on her side. Dr. Wolff made aware. No new orders.
--- NOTE | 2023-10-28 05:18 | PC.NURSE ---
EXAMINING OFFICER note: Spoke to Bernie at [facility] regarding patient transfer. Bernie said that because patient wants to stay up north in the [facility] and [facility] area, she's kept her search to those hospitals. Bernie stated she contacted [facility] and they may have beds in the morning, and that [facility] maybe tight but patient is on the waitlist. Since patient is stable, Bernie is letting the search stay in the area. If patient becomes less stable we can start looking down south to the [facility] area. Bernie said that no ambulance/transfer group would be able to take the wheelchair so we need to contact family to take that. Thanked Bernie for her help
--- NOTE | 2023-10-28 05:29 | PC.NURSE ---
Patient has been using the trapeze bar to turn herself. Patient makes note of time and uses the call light when needed for help. Patient now using call light
[2023-10-28 06:14] LABS: BUN Creatinine Ratio 34.8 (6-22); Blood Urea Nitrogen 69 mg/dL (7-17); Calcium 7.9 mg/dL (8.4-10.2); Carbon Dioxide 14 mmol/L (22-32); Chloride 109 mmol/L (98-107); Estimated Glomerular Filt Rate 26 mL/min (>60); Glucose 89 mg/dL (80-110); HEMOLYSIS < 15 (0-50); Potassium 3.4 mmol/L (3.4-5.1); Sodium 134 mmol/L (137-145)
--- NOTE | 2023-10-28 07:39 | PC.NURSE ---
Upon this RN arrival patient is resting with eyes closed. Chest rise and fall are noted. No signs of respiratory distress noted. This RN allowed patient to continue to rest and will perform assessment when completed.
[2023-10-28] MEDS: ENOXAPARIN 40 MG/0.4 ML SYRINGE 30 MG SUBCUT (09:13)
[2023-10-28] MEDS: carvediloL 3.125 MG TABLET 6.25 MG PO ×2 (09:14→20:44)
[2023-10-28] MEDS: cefTRIAXone 1,000 MG in SODIUM CHLORIDE 0.9% 100 ML 200 MG IV (09:15)
--- NOTE | 2023-10-28 09:25 | PC.NURSE ---
Patient declined her bupropion 100mg. Patient states that she takes this medication only in the winter months due to seasonal depression and hasn't been taking this medication since spring started. Provider informed.
[2023-10-28 09:40] LABS: Add Manual Diff / Slide Review NO; Basophils Absolute Auto 0 /uL (0-100); Basophils Percent Auto 0.5 % (0-2); Eosinophils Absolute Auto 200 /uL (0-450); Eosinophils Percent Auto 2.1 % (2-4); Hematocrit 21.5 % (36-46); Hemoglobin 7.2 g/dL (12.0-16.0); Lymphocytes Absolute Auto 600 /uL (1100-4500); Lymphocytes Percent Auto 7.6 % (25-40); Mean Corpuscular HGB Conc 33.3 % (30-36); Mean Corpuscular Hemoglobin 29.8 PG (26-34); Mean Corpuscular Volume 89.7 fL (80-100); Monocytes Absolute Auto 500 /uL (0-900); Monocytes Percent Auto 6.4 % (3-14); Neutrophils Absolute Auto 6400 /uL (1500-7000); Neutrophils Percent Auto 83.4 % (50-75); Platelet Count 313 X10^3/uL (150-400); Red Cell Distribution Width 13.2 % (11.6-14.8); White Blood Cell Count 7.7 X10^3/uL (4.5-11.0)
--- NOTE | 2023-10-28 09:58 | PC.NURSE ---
Patient has self turned from left to right. Patient has demonstrated that she is able to self turn on two hour intervals but this RN will continue to monitor to ensure patient completes this timely.
--- NOTE | 2023-10-28 12:21 | PC.NURSE ---
Patient has repositioned herself facing left. Patient has brother has come to visit the patient and with patient permission left with her motorized wheelchair. Patient brother is named AlbertRomero
--- NOTE | 2023-10-28 14:11 | PC.NURSE ---
This RN performed wound care on patient buffy. Patient states that she had surgery in the area years ago. Patient has an unstagable pressure ulcer in the cleft of the buttock. Area is 7cm tall and 6cm wide. The skin surrounding is bright red. Wound has purulent drainage from the area. There is a 75 percent blackened ring surrounding the wound area. The wound has slough intermittently throughout. Depth ranges from 0.5-2cm in depth with no obvious tunneling noted upon assessment. This RN removed saturated alleyvn foam adhesive dressing and washed and gently patted area wtth gauze using soap and water. Skin patted dry and a alleyvn foam adhesive dressing reapplied. This RN just talked to Wound care and a nurse or provider is to come to the department to assess and provide a a more appropriate order.
--- NOTE | 2023-10-28 15:05 | PC.NURSE ---
MARYAN Morgan from the wound clinic came up and looked at the wound with this RN. RN suggested covering wound with Aquacel AG or Hydrofera Blue as primary dressing and then covering with a foam dressing and changing daily and as needed when saturated. This RN talked to ED provider and he authorized this dressing recommendation. This RN placed the order in.
--- NOTE | 2023-10-28 15:37 | PC.NURSE ---
Kassandra RN from [facility] was calling to verify if this patient is still here. If patient was to be discharged patient would need readmission to care for [facility]. Prior to discharge a call to [facility] at [phone] would be needed to inform them of patient intention to return home so they could resume care.
--- NOTE | 2023-10-28 15:39 | PC.NURSE ---
Patient has repositioned herself to the left. Patient denies having any pain at this time.
--- NOTE | 2023-10-28 17:24 | PC.NURSE ---
Patient repositioned herself to the left from the right at this time.
--- NOTE | 2023-10-28 18:16 | PC.NURSE ---
Talked with provider about patient only taking wellbutrin in the winter for seasonal depression and provider gave verbal order to discontinue this medication.
[2023-10-28] MEDS: VANCOMYCIN 750 MG/150 ML PIGGYBACK 150 MG IV (18:39)
[2023-10-28] MEDS: clonazePAM 0.5 MG TABLET 1 MG PO (20:44)
== END 2023-10-28 21:09 | disposition short-term general hospital (02) ==
PROVIDERS: Emergency Medicine; Emergency Provider Emergency Medicine; Family Provider Internal Medicine; PCP Internal Medicine
DX: L89.159 Pressure ulcer of sacral region, unspecified stage (principal); G82.20 Paraplegia, unspecified
CPT/HCPCS: 36415; 74176; 80048; 80053; 80202; 81015; 83605; 84145; 85025; 87040; 87070; 87075; 87077; 87086; 87147; 87186; 87205; 96361; 96365; 96366; 96367; 96372; 99284; J0696; J1650

== ENCOUNTER → 2023-12-21 11:22 | Outpatient (CLI) | payer MEDICARE, OTHER, SELFPAY ==
--- NOTE | 2023-12-21 11:23 | DI.RAD.S_ITS ---
PROCEDURE: XR KNEE RT 3V INDICATIONS: swelling of R knee, treated for DVT RLE TECHNIQUE: 3 views of the knee were acquired. COMPARISON: None. FINDINGS: Bones: There is diffuse osteopenia. Comminuted and impacted fracture involving supracondylar region of distal femur is seen with posterior displacement at fracture site and up to 2.5 cm overlapping at fracture site. No other fracture or dislocation. Osteoarthritic changes throughout right knee are seen. Soft tissues: Large suprapatellar joint effusion. No suspicious soft tissue calcifications. IMPRESSION: Diffuse osteopenia. Comminuted and impacted distal femoral fracture as above. Marked soft tissue swelling surrounding right knee with moderate to large joint effusion. Dictated by: Lester Quiñones M.D. on 12/21/2023 at 13:07 Approved by: Lester Quiñones M.D. on 12/21/2023 at 13:21
[2023-12-21 15:24] LABS: Hematocrit 26.3 % (36-46); Hemoglobin 8.8 g/dL (12.0-16.0); Mean Corpuscular HGB Conc 33.6 % (30-36); Mean Corpuscular Hemoglobin 31.5 PG (26-34); Mean Corpuscular Volume 93.9 fL (80-100); Platelet Count 552 X10^3/uL (150-400); Red Cell Distribution Width 16.3 % (11.6-14.8); White Blood Cell Count 6.4 X10^3/uL (4.5-11.0)
[2023-12-21 15:49] LABS: Erythrocyte Sedimentation Rate > 140 MM/HR (0-20)
[2023-12-21 16:00] LABS: Alanine Aminotransferase 17 IU/L (<35); Albumin 3.6 g/dL (3.5-5.0); Albumin Globulin Ratio 1.1 (1.0-2.8); Alkaline Phosphatase 114 U/L (38-126); Aspartate Aminotransferase 23 IU/L (14-36); BUN Creatinine Ratio 51.1 (6-22); Bilirubin Total 0.6 mg/dL (0.2-1.3); Blood Urea Nitrogen 91 mg/dL (7-17); C-Reactive Protein Quant 8.2 mg/dL (<1.0); Calcium 9.2 mg/dL (8.4-10.2); Carbon Dioxide 24 mmol/L (22-32); Chloride 100 mmol/L (98-107); Estimated Glomerular Filt Rate 29 mL/min (>60); Globulin 3.4 g/dL (1.7-4.1); Glucose 149 mg/dL (80-110); HEMOLYSIS < 15 (0-50); Potassium 5.2 mmol/L (3.4-5.1); Sodium 134 mmol/L (137-145)
== END ==
PROVIDERS: Family Provider Internal Medicine; PCP Internal Medicine; Referring Provider Internal Medicine; Visit Provider Internal Medicine
DX: S72.451A Displaced supracondylar fracture without intracondylar extension of lower end of right femur, initial encounter for closed fracture (principal); M25.461 Effusion, right knee; M85.861 Other specified disorders of bone density and structure, right lower leg; M79.89 Other specified soft tissue disorders; L89.154 Pressure ulcer of sacral region, stage 4; A04.72 Enterocolitis due to Clostridium difficile, not specified as recurrent; N18.30 Chronic kidney disease, stage 3 unspecified
CPT/HCPCS: 36415; 73562; 80053; 85027; 85651; 86140

== ENCOUNTER → 2024-01-12 14:56 | Outpatient (CLI) | payer MEDICARE, OTHER, SELFPAY | PROVIDERS: Family Provider Internal Medicine; PCP Internal Medicine; Referring Provider Internal Medicine; Visit Provider Surgery | DX: L89.154 Pressure ulcer of sacral region, stage 4 (principal); L89.613 Pressure ulcer of right heel, stage 3; G82.21 Paraplegia, complete; M46.28 Osteomyelitis of vertebra, sacral and sacrococcygeal region; L53.9 Erythematous condition, unspecified; M62.81 Muscle weakness (generalized); Z79.01 Long term (current) use of anticoagulants | CPT/HCPCS: 11042; 11045; 99204; 99214 ==

== ENCOUNTER 2024-01-20 21:22 | Emergency (ER) | payer MEDICARE, OTHER, SELFPAY ==
--- NOTE | 2024-01-20 21:24 | EKG_ITS ---
[address] [address] Test Date: 2024-01-20 Pat Name: Meggan De Los Santos Department: [facility] Room: Gender: Female Oven Operator: VIKRAM : 1945 Requested By: Order Number: [id number] Reading MD: Aramis Keith Measurements Intervals [place] Rate: 105 P: 45 VA: 160 QRS: 20 QRSD: 76 T: 36 QT: 334 QTc: 441 Interpretive Statements Sinus tachycardia Cannot rule out Anterior infarct , age undetermined Electronically Signed On 01-23-2024 7:47:22 PST by Aramis Keith
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
[2024-01-20 21:30] VITALS: BP 185/89; PULSE 112; RESP 24; TEMP 37.3; O2SAT 97; BMI 17.2
[2024-01-20 21:35] VITALS: PULSE 113; RESP 20; O2SAT 97
[2024-01-20 21:36] VITALS: BP 185/89; PULSE 110; RESP 18; O2SAT 98
[2024-01-20 22:00] VITALS: BP 149/80; PULSE 103; O2SAT 100
[2024-01-20 22:06] LABS: Add Manual Diff / Slide Review NO; Basophils Absolute Auto 100 /uL (0-100); Eosinophils Absolute Auto 200 /uL (0-450); Eosinophils Percent Auto 3.6 % (2-4); Hematocrit 31.8 % (36-46); Hemoglobin 10.5 g/dL (12.0-16.0); Lymphocytes Absolute Auto 2200 /uL (1100-4500); Lymphocytes Percent Auto 35.8 % (25-40); Mean Corpuscular HGB Conc 32.9 % (30-36); Mean Corpuscular Hemoglobin 30.7 PG (26-34); Mean Corpuscular Volume 93.1 fL (80-100); Monocytes Absolute Auto 500 /uL (0-900); Monocytes Percent Auto 8.6 % (3-14); Neutrophils Absolute Auto 3100 /uL (1500-7000); Platelet Count 462 X10^3/uL (150-400); Red Blood Cell Count 3.41 X10^6/uL (4.0-5.2); Red Cell Distribution Width 15.9 % (11.6-14.8); White Blood Cell Count 6.1 X10^3/uL (4.5-11.0)
[2024-01-20 22:12] LABS: Alanine Aminotransferase 133 IU/L (<35); Albumin 4.2 g/dL (3.5-5.0); Albumin Globulin Ratio 0.9 (1.0-2.8); Alkaline Phosphatase 244 U/L (38-126); Aspartate Aminotransferase 133 IU/L (14-36); BUN Creatinine Ratio 46.1 (6-22); Bilirubin Total 0.4 mg/dL (0.2-1.3); Blood Urea Nitrogen 95 mg/dL (7-17); Calcium 9.2 mg/dL (8.4-10.2); Carbon Dioxide 29 mmol/L (22-32); Chloride 98 mmol/L (98-107); Estimated Glomerular Filt Rate 24 mL/min (>60); Globulin 4.7 g/dL (1.7-4.1); Glucose 112 mg/dL (80-110); HEMOLYSIS < 15 (0-50); Sodium 133 mmol/L (137-145); Total Protein 8.9 g/dL (6.3-8.2)
[2024-01-20 22:30] VITALS: BP 147/77; PULSE 101; RESP 20; O2SAT 100
== END 2024-01-20 23:01 | disposition home or self-care (01) ==
PROVIDERS: Emergency Provider Emergency Medicine; Family Provider Internal Medicine; PCP Internal Medicine
DX: R74.01 Elevation of levels of liver transaminase levels (principal); R07.9 Chest pain, unspecified
CPT/HCPCS: 36415; 80053; 85025; 93005; 99283; 99284

== ENCOUNTER → 2024-02-07 13:04 | Outpatient (CLI) | payer MEDICARE, OTHER, SELFPAY | PROVIDERS: Family Provider Internal Medicine; PCP Internal Medicine; Referring Provider Internal Medicine; Visit Provider Surgery | DX: L89.154 Pressure ulcer of sacral region, stage 4 (principal); L89.613 Pressure ulcer of right heel, stage 3; R60.0 Localized edema; R23.3 Spontaneous ecchymoses; L53.9 Erythematous condition, unspecified; M46.28 Osteomyelitis of vertebra, sacral and sacrococcygeal region; G82.21 Paraplegia, complete; M62.81 Muscle weakness (generalized) | CPT/HCPCS: 11042; 11045; 99213 ==

== ENCOUNTER → 2024-03-28 14:44 | Outpatient (CLI) | payer MEDICARE, OTHER, SELFPAY ==
[2024-03-28 14:59] LABS: Hematocrit 31.5 % (36-46); Hemoglobin 10.1 g/dL (12.0-16.0); Mean Corpuscular HGB Conc 32.2 % (30-36); Mean Corpuscular Hemoglobin 29.1 PG (26-34); Mean Corpuscular Volume 90.3 fL (80-100); Platelet Count 434 X10^3/uL (150-400); Red Blood Cell Count 3.49 X10^6/uL (4.0-5.2); Red Cell Distribution Width 15.1 % (11.6-14.8); White Blood Cell Count 7.6 X10^3/uL (4.5-11.0)
[2024-03-28 16:06] LABS: TSH w/ Reflex to FT4 1.15 uIU/mL (0.47-4.68)
[2024-03-28 16:16] LABS: Alanine Aminotransferase 16 IU/L (<35); Albumin Globulin Ratio 1.2 (1.0-2.8); Alkaline Phosphatase 79 U/L (38-126); Aspartate Aminotransferase 30 IU/L (14-36); Bilirubin Total 0.3 mg/dL (0.2-1.3); Calcium 9.4 mg/dL (8.4-10.2); Carbon Dioxide 29 mmol/L (22-32); Chloride 97 mmol/L (98-107); Cholesterol 193 mg/dL (140-199); Estimated Glomerular Filt Rate 33 mL/min (>60); Globulin 3.3 g/dL (1.7-4.1); Glucose 101 mg/dL (80-110); HDL Cholesterol 76 mg/dL (40-60); HEMOLYSIS 25 (0-50); LDL Cholesterol Calculated 102 mg/dL (<100); Potassium 5.1 mmol/L (3.4-5.1); Sodium 133 mmol/L (137-145); Total Protein 7.3 g/dL (6.3-8.2); Triglycerides 77 mg/dL (35-150)
[2024-03-28 16:25] LABS: Blood Urea Nitrogen 115 mg/dL (7-17)
== END ==
PROVIDERS: Family Provider Internal Medicine; PCP Internal Medicine; Referring Provider Internal Medicine; Visit Provider Internal Medicine
DX: E78.2 Mixed hyperlipidemia (principal); I10 Essential (primary) hypertension
CPT/HCPCS: 36415; 80053; 80061; 84443; 85027

== ENCOUNTER → 2024-05-08 14:17 | Outpatient (CLI) | payer MEDICARE, OTHER, SELFPAY ==
--- NOTE | 2024-05-08 14:21 | DI.US.S_ITS ---
PROCEDURE: US PERIPH VENOUS LOW EXTREM RT INDICATIONS: FOLLOW UP DEEP VEIN THROMBOSIS TECHNIQUE: Real-time imaging, as well as color and pulse Doppler interrogation, were performed of the lower extremity deep veins from the inguinal ligament to the popliteal fossa, with documentation of the visualized calf veins. COMPARISON: [facility], US, US VENOUS LOWER EXTREMITY DOPPLER RIGHT, 12/03/2023, 0:29. FINDINGS: The common femoral, popliteal, and the visualized calf veins are normally compressible, and free of intraluminal thrombus. There is eccentric wall thickening of the distal femoral vein with incomplete compressibility consistent with chronic deep venous thrombosis changes focally. Color and pulse Doppler demonstrate normal phasic intraluminal flow. There is normal augmentation response to distal compression maneuver. IMPRESSION: Focal chronic deep venous thrombosis distal superficial femoral vein improved from prior study December 03, 2023 Dictated by: Bhupendra Pineda M.D. on 05/08/2024 at 16:02 Approved by: Bhupendra Pineda M.D. on 05/08/2024 at 16:05
== END ==
PROVIDERS: Family Provider Internal Medicine; PCP Internal Medicine; Referring Provider Internal Medicine; Visit Provider Internal Medicine
DX: I82.511 Chronic embolism and thrombosis of right femoral vein (principal)
CPT/HCPCS: 93971

== ENCOUNTER → 2024-05-31 14:02 | Outpatient (CLI) | payer MEDICARE, OTHER, SELFPAY ==
[2024-05-31 15:47] LABS: Hematocrit 31.9 % (36-46); Hemoglobin 10.5 g/dL (12.0-16.0); Mean Corpuscular Hemoglobin 28.9 PG (26-34); Mean Corpuscular Volume 87.6 fL (80-100); Platelet Count 333 X10^3/uL (150-400); Red Blood Cell Count 3.64 X10^6/uL (4.0-5.2); Red Cell Distribution Width 16.7 % (11.6-14.8); White Blood Cell Count 15.3 X10^3/uL (4.5-11.0)
[2024-05-31 16:28] LABS: Alanine Aminotransferase 444 IU/L (<35); Albumin 4.1 g/dL (3.5-5.0); Albumin Globulin Ratio 1.1 (1.0-2.8); Alkaline Phosphatase 368 U/L (38-126); Aspartate Aminotransferase 683 IU/L (14-36); BUN Creatinine Ratio 51.1 (6-22); Bilirubin Total 0.8 mg/dL (0.2-1.3); Blood Urea Nitrogen 96 mg/dL (7-17); Calcium 10.1 mg/dL (8.4-10.2); Carbon Dioxide 26 mmol/L (22-32); Chloride 95 mmol/L (98-107); Cholesterol 192 mg/dL (140-199); Estimated Glomerular Filt Rate 27 mL/min (>60); Globulin 3.6 g/dL (1.7-4.1); Glucose 100 mg/dL (80-110); HDL Cholesterol 70 mg/dL (40-60); HEMOLYSIS < 15 (0-50); LDL Cholesterol Calculated 109 mg/dL (<100); Potassium 4.6 mmol/L (3.4-5.1); Sodium 132 mmol/L (137-145); Total Protein 7.7 g/dL (6.3-8.2); Triglycerides 64 mg/dL (35-150)
== END ==
PROVIDERS: Family Provider Internal Medicine; PCP Internal Medicine; Referring Provider Internal Medicine; Visit Provider Internal Medicine
DX: I82.409 Acute embolism and thrombosis of unspecified deep veins of unspecified lower extremity (principal); E78.2 Mixed hyperlipidemia
CPT/HCPCS: 36415; 80053; 80061; 85027

== ENCOUNTER 2024-06-05 22:53 | Inpatient (IN) | payer MEDICARE, OTHER, SELFPAY ==
[2024-06-05 22:53] VITALS: BP 138/63; PULSE 89; RESP 18; TEMP 36.5; O2SAT 93; BMI 20.5
[2024-06-05 23:04] VITALS: PULSE 89; O2SAT 94
[2024-06-05 23:05] VITALS: BP 138/63; PULSE 89; O2SAT 94
--- NOTE | 2024-06-05 23:18 | ED_ITS ---
HPI - Altered Mental Status General Chief Complaint: Altered Mental Status Stated Complaint: AMS, Dehydration Time Seen by Provider: 06/05/24 23:18 Source: patient and family Mode of arrival: Family Vehicle History of Present Illness HPI narrative: Patient is a 78-year-old paraplegic with a history of DVT on Eliquis hypertension decubitus ulcer with osteomyelitis, hyperlipidemia, C diff colitis, chronic pain with T8 intrathecal pump, comes into the ED from home with spouse for evaluation of mental status change. According to the significant other patient has been more confused, states that she has also been having these random? jerking motion on exam patient having random intermittent jerking motions however do not appear to be focal, patient is alert to self and place not time. Patient does follow with wound care for dressing changes to her decubitus ulcers, patient is not complaining of any other symptoms such as headache visual disturbances chest pain shortness of breath fever chills nausea vomiting or any other GI/ symptoms at this time, however additional ROS HPI limited given the fact that patient does appear confused but no focal deficits follows commands appropriately. Spouse at bedside states that these symptoms have been ongoing and persistent/worsening over the past 3 days. Normally able to hold a full conversation but now patient unable to do so. Spouse states that given her increased confusion patient has also had decreased p.o. intake secondary to this. Related Data Home Medications Medication Instructions Recorded Confirmed implant pain stimulator T8 intraductal 03/31/21 05/31/24 morphine intrathecal 03/31/21 05/31/24 cholecalciferol (vitamin D3) 25 25 mcg PO DAILY 05/30/23 05/31/24 mcg (1,000 unit) capsule Lactobacillus rhamnosus GG 10 1 cap PO BID 12/09/23 05/31/24 billion cell capsule ascorbic acid (vitamin C) 500 mg mg PO DAILY 12/09/23 05/31/24 capsule calcium carbonate (Antacid 200 mg PO BID 12/09/23 05/31/24 (calcium carbonate)) cyanocobalamin (vitamin B-12) 1,000 mcg PO DAILY 12/09/23 05/31/24 1,000 mcg capsule melatonin 1 mg tablet 1 mg PO BEDTIME PRN 12/09/23 05/31/24 Previous Rx's Medication Instructions Recorded tretinoin 0.025 % topical cream See Rx Instructions .Route 12/05/23 .COMPLEX #90 grams DME: Knee Immobilizer #1 ea 12/21/23 apixaban 5 mg tablet 5 mg PO BID #180 tabs 12/21/23 diclofenac sodium 3 % topical gel 1 applic topical BID #100 grams 05/15/24 amlodipine 5 mg tablet 5 mg PO DAILY #90 tabs 05/16/24 doxycycline hyclate 100 mg capsule 100 mg PO BID #14 caps 05/31/24 Allergies Allergy/AdvReac Type Severity Reaction Status Date / Time adhesive tape Allergy Severe removed Verified 05/31/24 13:27 skin (allergy to athletic tape only) sulfamethoxazole Allergy Intermediate HIVES/Rash Verified 05/31/24 13:27 [From BACTRIM] trimethoprim [From BACTRIM] Allergy Intermediate HIVES/Rash Verified 05/31/24 13:27 duloxetine [From CYMBALTA] AdvReac Intermediate STUTTERING, Verified 05/31/24 13:27 SLEEPING ISSUES gabapentin [GABAPENTIN] AdvReac Unknown BECAME Verified 05/31/24 13:27 RECLUSIVE Review of Systems Review of Systems Narrative: General: Denies fever, chills, weight loss HEENT: Denies headache, eye drainage, eye irritation, head trauma, sore throat, voice change Cardiovascular: Denies any chest pain, palpitations, tachycardia Respiratory: Denies any shortness of breath, cough, wheeze, stridor GI/: Denies any abdominal pain, nausea, vomiting, diarrhea, bright red blood per rectum, melanotic stools, urinary frequency, urinary retention, dysuria, hematuria MSK: Denies any joint pain, muscle pains, swelling Skin: Denies any rashes, lesions, discoloration Neuro: Increased confusion, Denies any headache, lightheadedness, dizziness, fainting, weakness Psych: Denies SI/HI Patient History Medical History Allergic rhinitis C. 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 Spinal cord stimulator status Spondylolisthesis of cervical region Ulcer of right heel Surgical History History of [place] fundoplication History of urostomy Hx laparoscopic cholecystectomy Hx of cholecystectomy Hx of hernia repair Hx of hysterectomy Hx of spinal fusion Status of other artificial opening of urinary tract Status post insertion of intrathecal pump Family History Father Heart disease Mother Cancer Stroke Social History household members: spouse alcohol intake frequency: holidays/special occasions only Exam Narrative Exam Narrative: General: Cooperative, elderly, frail, cachectic, not in acute distress HEENT: Normocephalic, atraumatic, PERRLA, normal sclera, eyelids normal Neck: Active full range of motion, atraumatic Chest: Normal to inspection, negative crepitus, no overlying erythema ecchymosis Respiratory: Normal respiratory effort, not in acute respiratory distress, clear to auscultation bilaterally negative cough, wheeze, tachypnea, rhonchi, rales Cardiology: Regular rate rhythm negative gallop, murmur, rubs GI/: Patient with urostomy bag noted anteriorly, No tenderness to palpation, soft, non rigid, normal to inspection, exam deferred MSK: Patient paraplegic at baseline, no tenderness to palpation of any bony prominences Skin: Decubitus ulcer well-appearing no purulent discharge no surrounding erythema Neuro: Patient paraplegic at baseline, alert to self and place but confused to time, Psych: Cooperative, negative suicidal or homicidal ideations Initial Vital Signs Initial Vital Signs: Vital Signs Temperature 97.7 F 06/05/24 22:53 Pulse Rate 89 06/05/24 22:53 Respiratory Rate 18 06/05/24 22:53 Blood Pressure 138/63 06/05/24 22:53 Pulse Oximetry 93 06/05/24 22:53 Oxygen Delivery Method Room Air 06/05/24 22:53 Course Orders Ordered: ED Orders 06/05/24 23:19 EKG-12 Lead Stat 06/05/24 23:20 CT head/brain wo con Stat XR chest 1V Stat 06/05/24 23:33 Acetaminophen Stat Complete Blood Count AUTO DIFF Stat Comprehensive Metabolic Panel Stat Lactate (Lactic Acid) Stat Lipase Stat MAG [Magnesium] Stat NT-proBNP (BNP-Adult 18+) Stat Osmolality, Serum Stat PTT Partial Thromboplastin Fritz Stat Prolactin Stat Prothrombin Time INR Stat Thyroid Stimulating Hormone Stat Troponin & CK Cardiac Panel Stat 06/06/24 00:01 Covid-19 + FLU A/B + RSV - PCR Stat 06/06/24 02:09 Urinalysis and Microscopic Stat Urine Culture Stat Urine Drug Screen, Rapid Stat 06/06/24 02:16 CT chest abd pel wo con Stat 06/06/24 03:35 Lactate (Lactic Acid) Stat Sodium Chloride (Normal Saline 0.9%) 1,000 mls @ 150 mls/hr IV CONT SHAUN Last Infusion: 06/06/24 04:00 Dose: Infused Documented By: Admin: 06/06/24 00:03 Dose: 150 mls/hr Documented By: DREW Discontinued Medications Sodium Chloride (Normal Saline 0.9%) 1,000 mls @ 1,000 mls/hr IV BOLUS ONE Stop: 06/06/24 02:57 Last Infusion: 06/06/24 03:14 Dose: Infused Documented By: Admin: 06/06/24 02:18 Dose: 1,000 mls/hr Documented By: DREW Vancomycin HCl 1,000 mg/ (Sodium Chloride) 250 mls @ 250 mls/hr IV NOW ONE Stop: 06/06/24 02:37 Last Admin: 06/06/24 03:51 Dose: 250 mls/hr Documented By: LUIS Piperacillin Sod/Tazobactam (Sod 3.375 gm/ Sodium Chloride) 100 mls @ 200 mls/hr IV NOW ONE Stop: 06/06/24 02:37 Last Admin: 06/06/24 03:09 Dose: Not Given Documented By: DREW Piperacillin Sod/Tazobactam (Sod 4.5 gm/ Sodium Chloride) 100 mls @ 200 mls/hr IV NOW ONE Stop: 06/06/24 03:44 Last Infusion: 06/06/24 03:51 Dose: Infused Documented By: Admin: 06/06/24 03:15 Dose: 200 mls/hr Documented By: DREW Vital Signs Vital signs: Vital Signs - 8 hr 06/05/24 22:53 06/05/24 23:04 06/05/24 23:05 Temperature 97.7 F Pulse Rate 89 89 89 Respiratory Rate 18 Blood Pressure 138/63 Pulse Oximetry 93 94 94 Oxygen Delivery Method Room Air Room Air 06/05/24 23:05 06/05/24 23:30 06/06/24 00:32 Temperature Pulse Rate 91 H 78 Respiratory Rate 16 Blood Pressure 138/63 Pulse Oximetry 93 Oxygen Delivery Method 06/06/24 00:34 06/06/24 00:34 06/06/24 01:00 Temperature Pulse Rate 84 Respiratory Rate 14 Blood Pressure 109/63 96/51 L Pulse Oximetry 93 Oxygen Delivery Method Room Air 06/06/24 01:00 06/06/24 01:30 06/06/24 01:33 Temperature Pulse Rate 80 79 75 Respiratory Rate 19 14 23 Blood Pressure Pulse Oximetry 96 96 97 Oxygen Delivery Method Room Air Room Air 06/06/24 01:33 06/06/24 02:00 06/06/24 02:00 Temperature Pulse Rate 73 Respiratory Rate 16 Blood Pressure 98/54 L 78/44 L Pulse Oximetry 94 Oxygen Delivery Method Room Air 06/06/24 02:03 06/06/24 02:03 06/06/24 02:07 Temperature Pulse Rate 70 Respiratory Rate 17 Blood Pressure 79/45 L 80/46 L Pulse Oximetry 94 Oxygen Delivery Method Room Air 06/06/24 02:07 06/06/24 02:09 06/06/24 02:09 Temperature Pulse Rate 73 70 Respiratory Rate 18 14 Blood Pressure 92/51 L Pulse Oximetry 95 96 Oxygen Delivery Method Room Air Room Air 06/06/24 02:10 06/06/24 02:10 06/06/24 02:20 Temperature Pulse Rate 69 Respiratory Rate 14 Blood Pressure 85/48 L 79/46 L Pulse Oximetry 96 Oxygen Delivery Method Room Air 06/06/24 02:20 06/06/24 02:25 06/06/24 02:25 Temperature Pulse Rate 69 71 Respiratory Rate 15 14 Blood Pressure 89/50 L Pulse Oximetry 96 97 Oxygen Delivery Method Room Air 06/06/24 02:30 06/06/24 02:30 06/06/24 02:35 Temperature Pulse Rate 71 Respiratory Rate 15 Blood Pressure 88/49 L 89/52 L Pulse Oximetry 98 Oxygen Delivery Method Room Air 06/06/24 02:35 06/06/24 02:39 06/06/24 02:39 Temperature Pulse Rate 71 71 Respiratory Rate 15 14 Blood Pressure 99/54 L Pulse Oximetry 98 98 Oxygen Delivery Method 06/06/24 02:40 06/06/24 02:40 06/06/24 02:45 Temperature Pulse Rate 72 Respiratory Rate Blood Pressure 98/53 L 135/60 Pulse Oximetry 98 Oxygen Delivery Method Room Air 06/06/24 02:45 06/06/24 02:50 06/06/24 02:50 Temperature Pulse Rate 79 88 Respiratory Rate 23 20 Blood Pressure 121/68 Pulse Oximetry 97 96 Oxygen Delivery Method Room Air 06/06/24 02:52 06/06/24 02:52 06/06/24 02:55 Temperature Pulse Rate 78 70 Respiratory Rate 20 16 Blood Pressure 127/59 L Pulse Oximetry 98 99 Oxygen Delivery Method Room Air 06/06/24 02:55 06/06/24 03:00 06/06/24 03:00 Temperature Pulse Rate 67 Respiratory Rate 13 Blood Pressure 114/55 L 87/47 L Pulse Oximetry 100 Oxygen Delivery Method 06/06/24 03:05 06/06/24 03:05 06/06/24 03:10 Temperature Pulse Rate 69 Respiratory Rate 13 Blood Pressure 86/50 L 81/43 L Pulse Oximetry 98 Oxygen Delivery Method 06/06/24 03:10 06/06/24 03:15 06/06/24 03:15 Temperature Pulse Rate 68 74 Respiratory Rate 12 13 Blood Pressure 85/49 L Pulse Oximetry 97 95 Oxygen Delivery Method Room Air Room Air 06/06/24 03:20 06/06/24 03:20 06/06/24 03:30 Temperature Pulse Rate 74 91 H Respiratory Rate 14 24 Blood Pressure 93/53 L Pulse Oximetry 94 96 Oxygen Delivery Method Room Air 06/06/24 03:31 06/06/24 03:31 06/06/24 03:40 Temperature Pulse Rate 86 70 Respiratory Rate 15 13 Blood Pressure 149/81 H Pulse Oximetry 95 99 Oxygen Delivery Method 06/06/24 03:40 06/06/24 03:50 06/06/24 03:50 Temperature Pulse Rate 70 Respiratory Rate 16 Blood Pressure 79/41 L 83/45 L Pulse Oximetry 97 Oxygen Delivery Method 06/06/24 04:00 06/06/24 04:00 06/06/24 04:01 Temperature Pulse Rate 71 69 Respiratory Rate 13 13 Blood Pressure 123/60 Pulse Oximetry 97 98 Oxygen Delivery Method 06/06/24 04:01 06/06/24 04:10 06/06/24 04:10 Temperature Pulse Rate 68 Respiratory Rate 13 Blood Pressure 126/58 L 82/44 L Pulse Oximetry 95 Oxygen Delivery Method 06/06/24 04:13 06/06/24 04:13 06/06/24 04:30 Temperature Pulse Rate 68 Respiratory Rate 14 Blood Pressure 94/52 L 139/68 Pulse Oximetry 96 Oxygen Delivery Method 06/06/24 04:30 Temperature Pulse Rate 81 Respiratory Rate 22 Blood Pressure Pulse Oximetry 97 Oxygen Delivery Method Room Air MDM - Altered Mental Status Differential Diagnosis Differential diagnosis: Likely altered mental status, dementia, hyponatremia, other (Electrolyte abnormality, ) and sepsis Lab Data 06/05/24 23:33 06/05/24 23:33 Labs: Lab Results 06/05/24 06/06/24 06/06/24 Range/Units 23:33 00:01 02:09 WBC 13.2 H (4.5-11.0) X10^3/uL RBC 3.71 L (4.0-5.2) X10^6/uL Hgb 10.5 L (12.0-16.0) g/dL Hct 32.9 L (36-46) % MCV 88.7 (80-100) fL MCH 28.4 (26-34) PG MCHC 32.0 (30-36) % RDW 16.4 H (11.6-14.8) % Plt Count 301 (150-400) X10^3/uL Neut % (Auto) 76.3 H (50-75) % Lymph % (Auto) 14.1 L (25-40) % Perry % (Auto) 7.1 (3-14) % Eos % (Auto) 2.0 (2-4) % Baso % (Auto) 0.5 (0-2) % Neut # (Auto) 94732 H (8661-6898) /uL Lymph # (Auto) 1900 (4432-6709) /uL Perry # (Auto) 900 (0-900) /uL Eos # (Auto) 300 (0-450) /uL Baso # (Auto) 100 (0-100) /uL PT 12.7 H (9.4-12.5) SECONDS INR 1.1 (0.9-1.3) APTT 34 (25.1-36.5) SECONDS Sodium 136 L (137-145) mmol/L Potassium 5.2 H (3.4-5.1) mmol/L Chloride 99 (98-107) mmol/L Carbon Dioxide 26 (22-32) mmol/L BUN 108 H* (7-17) mg/dL Creatinine 2.24 H (0.52-1.04) mg/dL Estimated GFR 22 L (>60) mL/min BUN/Creatinine Ratio 48.2 H (6-22) Glucose 96 (80-110) mg/dL Lactate 0.8 (0.7-2.1) mmol/L Calcium 10.0 (8.4-10.2) mg/dL Magnesium 2.5 H (1.6-2.3) mg/dL Total Bilirubin 0.5 (0.2-1.3) mg/dL AST 18 (14-36) IU/L ALT 52 H (<35) IU/L Alkaline Phosphatase 173 H D (38-126) U/L Total Creatine Kinase < 20 L (30-135) U/L Troponin I < 0.012 (0.01-0.034) ng/mL NT-Pro-B Natriuret Pep 820 H (<450) pg/mL Total Protein 7.4 (6.3-8.2) g/dL Albumin 3.8 (3.5-5.0) g/dL Globulin 3.6 (1.7-4.1) g/dL Albumin/Globulin Ratio 1.1 (1.0-2.8) Lipase 20 L (23-300) U/L TSH 0.795 (0.47-4.68) uIU/mL Prolactin 13.3 (3.0-18.6) ng/mL Urine Color Yellow Urine Appearance Sl cloudy Urine pH 7.0 (4.5-8.0) Ur Specific Forsan 1.010 (1.000-1.035) Urine Protein 1+ H (Negative) Urine Glucose (UA) Negative (Negative) g/dL Urine Ketones Negative (NEGATIVE) Urine Occult Blood 2+ H (Negative) Urine Nitrate Positive H (Negative) Urine Bilirubin Negative (NEGATIVE) Urine Urobilinogen 0.2 (0.2) E.U./dL Ur Leukocyte Esterase 3+ H (NEGATIVE) Urine RBC 0-1/hpf (0-5/HPF) Urine WBC 10-30/hpf H (0-5/HPF) Ur Squamous Epith Cells 1-5 /hpf (0-5/HPF) Urine Bacteria Many (>30) H (None) Urine Mucus 1+ H (Negative) Ur Culture Indicated? Cult not indicated Vol Urine Centrifuged 10ml (spun) U Opiates 300ng/mL cut Positive H (Negative) Ur Oxycodone Screen Positive H (Negative) Urine Methadone Screen Negative (Negative) Acetaminophen < 10 (10-30) ug/mL Ur Barbiturates Screen Negative (Negative) U Tricyclic Antidepress Negative (Negative) Ur Phencyclidine Scrn Negative (Negative) Ur Amphetamines Screen Negative (Negative) U Methamphetamines Scrn Negative (Negative) Ur MDMA Scrn (Ecstasy) Negative (Negative) U Benzodiazepines Scrn Negative (Negative) Urine Cocaine Screen Negative (Negative) U Marijuana (THC) Screen Positive H (Negative) Urine Specific Forsan (Normal) Ur Creatinine (Normal) SARS-CoV-2 (PCR) Negative (Negative) Influenza A (RT-PCR) Flu a negative (NEGATIVE) Influenza B (RT-PCR) Flu b negative (NEGATIVE) RSV (PCR) Negative (Negative) 06/06/24 06/06/24 Range/Units 02:09 03:35 WBC (4.5-11.0) X10^3/uL RBC (4.0-5.2) X10^6/uL Hgb (12.0-16.0) g/dL Hct (36-46) % MCV (80-100) fL MCH (26-34) PG MCHC (30-36) % RDW (11.6-14.8) % Plt Count (150-400) X10^3/uL Neut % (Auto) (50-75) % Lymph % (Auto) (25-40) % Perry % (Auto) (3-14) % Eos % (Auto) (2-4) % Baso % (Auto) (0-2) % Neut # (Auto) (7191-0004) /uL Lymph # (Auto) (9784-5293) /uL Perry # (Auto) (0-900) /uL Eos # (Auto) (0-450) /uL Baso # (Auto) (0-100) /uL PT (9.4-12.5) SECONDS INR (0.9-1.3) APTT (25.1-36.5) SECONDS Sodium (137-145) mmol/L Potassium (3.4-5.1) mmol/L Chloride (98-107) mmol/L Carbon Dioxide (22-32) mmol/L BUN (7-17) mg/dL Creatinine (0.52-1.04) mg/dL Estimated GFR (>60) mL/min BUN/Creatinine Ratio (6-22) Glucose (80-110) mg/dL Lactate 0.5 L (0.7-2.1) mmol/L Calcium (8.4-10.2) mg/dL Magnesium (1.6-2.3) mg/dL Total Bilirubin (0.2-1.3) mg/dL AST (14-36) IU/L ALT (<35) IU/L Alkaline Phosphatase (38-126) U/L Total Creatine Kinase (30-135) U/L Troponin I (0.01-0.034) ng/mL NT-Pro-B Natriuret Pep (<450) pg/mL Total Protein (6.3-8.2) g/dL Albumin (3.5-5.0) g/dL Globulin (1.7-4.1) g/dL Albumin/Globulin Ratio (1.0-2.8) Lipase (23-300) U/L TSH (0.47-4.68) uIU/mL Prolactin (3.0-18.6) ng/mL Urine Color Urine Appearance Urine pH Normal (4.5-8.0) Ur Specific Forsan (1.000-1.035) Urine Protein (Negative) Urine Glucose (UA) (Negative) g/dL Urine Ketones (NEGATIVE) Urine Occult Blood (Negative) Urine Nitrate (Negative) Urine Bilirubin (NEGATIVE) Urine Urobilinogen (0.2) E.U./dL Ur Leukocyte Esterase (NEGATIVE) Urine RBC (0-5/HPF) Urine WBC (0-5/HPF) Ur Squamous Epith Cells (0-5/HPF) Urine Bacteria (None) Urine Mucus (Negative) Ur Culture Indicated? Vol Urine Centrifuged U Opiates 300ng/mL cut (Negative) Ur Oxycodone Screen (Negative) Urine Methadone Screen (Negative) Acetaminophen (10-30) ug/mL Ur Barbiturates Screen (Negative) U Tricyclic Antidepress (Negative) Ur Phencyclidine Scrn (Negative) Ur Amphetamines Screen (Negative) U Methamphetamines Scrn (Negative) Ur MDMA Scrn (Ecstasy) (Negative) U Benzodiazepines Scrn (Negative) Urine Cocaine Screen (Negative) U Marijuana (THC) Screen (Negative) Urine Specific Forsan Normal (Normal) Ur Creatinine Normal (Normal) SARS-CoV-2 (PCR) (Negative) Influenza A (RT-PCR) (NEGATIVE) Influenza B (RT-PCR) (NEGATIVE) RSV (PCR) (Negative) Imaging Data CT scan - head: Radiologist's Impression: [address] [address] [address] Scan Report Signed Patient: Meggan De Los Santos MR#: [id number] : 1945 Acct:[id number] Age/Sex: 78 / F Date of Service: 06/05/24 Loc: ED Accession Number: [id number] Procedure: CT head/brain wo con Ordering Provider: Albert Morales D.O. PROCEDURE: CT HEAD/BRAIN WO CON INDICATIONS: AMS TECHNIQUE: Noncontrast 4.5 mm thick angled axial sections acquired from the foramen magnum to the vertex, with coronal and sagittal reformats. For radiation dose reduction, the following was used: automated exposure control, adjustment of mA and/or kV according to patient size. COMPARISON: [facility], CT, HEAD WITHOUT CONTRAST, 03/04/2016, 11:44. FINDINGS: Image quality: Diagnostic. CSF spaces: Basal cisterns are patent. No extra-axial fluid collections. The ventricles are symmetric in size and shape. Brain: No intracranial bleeds or masses. There is cerebral volume loss for age, with resultant ventricular and sulcal prominence. There are periventricular and deep white matter chronic small vessel ischemic changes. There is intracranial internal carotid artery atherosclerosis. Skull and face: Calvarium and visualized facial bones appear intact, without suspicious lesions. Sinuses: Visualized sinuses and mastoids are clear. IMPRESSION: 1. No acute intracranial process. 2. Moderate atrophy and chronic microvascular ischemic changes. Chest x-ray: Radiologist's Impression: [address] [address] XRay Report Signed Patient: Meggan De Los Santos MR#: [id number] : 1945 Acct:[id number] Age/Sex: 78 / F Date of Service: 06/05/24 Loc: ED Accession Number: [id number] Procedure: XR chest 1V Ordering Provider: Albert Morales D.O. PROCEDURE: XR CHEST 1V INDICATIONS: ams TECHNIQUE: One view of the chest was acquired. COMPARISON: None. FINDINGS: Surgical changes and devices: Stimulator device. Presume shrapnel is noted overlying the upper abdomen. Cholecystectomy clips. Lungs and pleura: Lungs are clear. No pleural effusions or pneumothorax. Mediastinum: Mediastinal contours appear normal. Heart size is normal. Bones and chest wall: No suspicious bony lesions. Overlying soft tissues appear unremarkable. IMPRESSION: No acute pulmonary process. CT chest abdomen and pelvis without contrast: Radiologist's Impression: Preliminary read showing possible large right renal mass going into the renal he will him and pelvis,, moderate hiatal hernia, possible proctocolitis, ECG Data Interpretation: EKG interpreted ED physician sinus 84 beats per minute QTC [address] changes no STEMI MDM Narrative Medical decision making narrative: 78-year-old paraplegic with a history of DVT on Eliquis, hypertension, decubitus ulcers with osteomyelitis, hyperlipidemia, C diff colitis, chronic pain with a T8 intrathecal pump comes into the ED from home with spouse for evaluation of mental status change. According to the spouse patient has been increasingly confused over the past 3 days it has also been having intermittent jerking of the whole-body. According to the patient she is not having any pain above her baseline, however she is alert and oriented to self and place only does appear confused. But follows commands appropriately NIH of 0 no focal deficits. Patient does have well healing decubitus ulcers noted, also has a urostomy bag which was changed here in the emergency department, urinalysis positive for acute urinary tract infection, CT scan of the head without any acute findings, patient received sepsis bolus along with broad-spectrum antibiotics given patient meeting sepsis criteria, vanc Zosyn ordered. Patient lab work consistent with a leukocytosis of 13.2, Patient does have a history of CKD patient's creatinine 2.24 with BUN 108, potassium 5.2, EKG nonischemic no peaked T-waves, troponin negative, BNP 820, chest x-ray without any acute cardiopulmonary abnormality, 0145: Updated patient's spouse in regards to current workup, informed patient needing admission given patient's blood pressure soft, still receiving sepsis bolus at this time, does appear to be responding appropriately, patient still appears confused but no new symptoms or any focal deficits. Spouse who has power of employee benefits attorney states that patient is do not intubate but would want CPR. Would be okay with insertion of central venous catheter if needed, however additional interventions would be pending discussion with spouse. 0312: Patient appears to be responding to fluid bolus appropriately, map greater than 65 at this time, additional information obtained by spouse, she states that patient has actually been taking oral vancomycin over the past 2 days for C diff, however patient has not been having any diarrhea. Review of records also show that patient was seen by primary care Dr. Blunt on 05/31/2024, does not show patient with active C diff and/or currently on oral vancomycin 0402: Patient re-evaluated after completing 2 L normal saline bolus patient's blood pressure now 126/58, still awaiting CT scan, family and patient understand and agree with this plan 0505: Patient re-evaluated, she states that she is feeling much better, patient is blood pressure has remained normotensive over the past hour, at this time no indications for central line placement or initiating pressors, we will continue to monitor. Patient states that she does not have known renal mass. The patient's management plan was discussed Dr. Welch, who agrees to admit the patient to their service and assumes care of this patient at this time. Full admission orders will be placed by the primary team. Discharge Plan Departure Patient Disposition: Admitted As Inpatient Clinical Impression: Acute metabolic encephalopathy, Acute kidney injury superimposed on chronic kidney disease, Dehydration, Urinary tract infection, Mass of kidney Admit Date/Time: 06/06/24 05:11
[2024-06-05 23:30] VITALS: PULSE 91; RESP 16; O2SAT 93
--- NOTE | 2024-06-05 23:38 | EKG_ITS ---
[address] [address] Test Date: 2024-06-05 Pat Name: Meggan De Los Santos Department: [facility] Room: Gender: Female [employer] Tester: DAVID : 1945 Requested By: Order Number: [id number] Reading MD: Albert Richey Measurements Intervals [place] Rate: 84 P: 52 [place]: 166 QRS: 6 QRSD: 76 T: 54 QT: 334 QTc: 394 Interpretive Statements Sinus rhythm with occasional premature ventricular complexes Electronically Signed On 06-12-2024 20:07:33 PDT by Albert Richey
[2024-06-05 23:43] LABS: Add Manual Diff / Slide Review NO; Basophils Absolute Auto 100 /uL (0-100); Basophils Percent Auto 0.5 % (0-2); Eosinophils Absolute Auto 300 /uL (0-450); Hematocrit 32.9 % (36-46); Hemoglobin 10.5 g/dL (12.0-16.0); Lymphocytes Absolute Auto 1900 /uL (1100-4500); Lymphocytes Percent Auto 14.1 % (25-40); Mean Corpuscular Hemoglobin 28.4 PG (26-34); Mean Corpuscular Volume 88.7 fL (80-100); Monocytes Absolute Auto 900 /uL (0-900); Monocytes Percent Auto 7.1 % (3-14); Neutrophils Absolute Auto 10100 /uL (1500-7000); Neutrophils Percent Auto 76.3 % (50-75); Platelet Count 301 X10^3/uL (150-400); Red Blood Cell Count 3.71 X10^6/uL (4.0-5.2); Red Cell Distribution Width 16.4 % (11.6-14.8); White Blood Cell Count 13.2 X10^3/uL (4.5-11.0)
[2024-06-05 23:59] LABS: INR 1.1 (0.9-1.3); Prothrombin Time 12.7 SECONDS (9.4-12.5)
[2024-06-06] VITALS (71 sets, daily range): BP systolic 78–162; BP diastolic 41–81; PULSE 62–96; RESP 12–24; TEMP 36.3–36.9; O2SAT 80–100; BMI 17.4
[2024-06-06 00:01] LABS: PTT Partial Thromboplastin Tim 34 SECONDS (25.1-36.5)
[2024-06-06 00:02] LABS: Lactate (Lactic Acid) 0.8 mmol/L (0.7-2.1)
[2024-06-06] MEDS: SODIUM CHLORIDE 0.9% 1,000 ML 150 ML IV ×3 (00:03→13:41)
[2024-06-06 00:13] LABS: Acetaminophen < 10 ug/mL (10-30); Alanine Aminotransferase 52 IU/L (<35); Albumin 3.8 g/dL (3.5-5.0); Albumin Globulin Ratio 1.1 (1.0-2.8); Alkaline Phosphatase 173 U/L (38-126); Aspartate Aminotransferase 18 IU/L (14-36); BUN Creatinine Ratio 48.2 (6-22); Bilirubin Total 0.5 mg/dL (0.2-1.3); Carbon Dioxide 26 mmol/L (22-32); Chloride 99 mmol/L (98-107); Creatine Kinase < 20 U/L (30-135); Estimated Glomerular Filt Rate 22 mL/min (>60); Globulin 3.6 g/dL (1.7-4.1); Glucose 96 mg/dL (80-110); HEMOLYSIS < 15 (0-50); Potassium 5.2 mmol/L (3.4-5.1); Sodium 136 mmol/L (137-145); Total Protein 7.4 g/dL (6.3-8.2)
[2024-06-06 00:18] LABS: Blood Urea Nitrogen 108 mg/dL (7-17); Lipase 20 U/L (23-300); Magnesium 2.5 mg/dL (1.6-2.3)
[2024-06-06 00:25] LABS: Troponin I < 0.012 ng/mL (0.01-0.034)
[2024-06-06 00:28] LABS: NT-proBNP (BNP-Adult 18+) 820 pg/mL (<450)
[2024-06-06 00:30] LABS: Prolactin 13.3 ng/mL (3.0-18.6)
[2024-06-06 00:50] LABS: Thyroid Stimulating Hormone 0.795 uIU/mL (0.47-4.68)
--- NOTE | 2024-06-06 00:50 | PC.NURSE ---
Pt here with her SO and her brother. SO reports she has not been herself for the past two days. She also hasn't ate or drank much either. Pt is awake and oriented to self and place. Is not oriented to time. Pt has moments of clarity and is able to follow commands and then has moments of confusion. Pt is having involuntary jerk-like movements since she arrived here. Pt has a urostomy. This nurse applied new urostomy cover and new drainage bag on. Pt has a sacral open wound that she is been seen for in the wound care clinic. Was seen at the clinic yesterday- per SO. New leannyn applied. Dr. Morales laid eyes on wound. Pt has a morphine pump.
[2024-06-06 01:18] LABS: Influenza A - CEPHEID Flu A NEGATIVE (NEGATIVE); Influenza B - CEPHEID Flu B NEGATIVE (NEGATIVE); Respiratory Syncytial Virus Negative (Negative)
[2024-06-06 01:19] LABS: COVID-19 CEPHEID 4-PLEX PCR Negative (Negative)
--- NOTE | 2024-06-06 02:00 | PC.NURSE ---
Patient's BP 78/44. This nurse at pt's bedside. Rechecked BP and it was still low, Dr. Morales notified immediately. New orders for bolus NS, see APR.
--- NOTE | 2024-06-06 02:16 | DI.CT.S_ITS ---
PROCEDURE: CT CHEST ABD PEL WO CON INDICATIONS: AMS TECHNIQUE: After the administration of oral contrast, 5 mm thick sections acquired from the lung apices to the symphysis pubis. 5 mm thick coronal and sagittal reformats acquired, with additional 7 mm coronal MIP reformats through the lungs. For radiation dose reduction, the following was used: automated exposure control, adjustment of mA and/or kV according to patient size. COMPARISON: [facility], CT, CT CHEST ABDOMEN PELVIS WITHOUT CONTRAST, 11/02/2023, 16:16. FINDINGS: Image quality: Limited by noncontrast technique, metallic artifact and artifact from patient's arms at their sides. CHEST: Lower Neck: No enlarged lymph nodes. Thyroid: No thyroid nodules which require sonographic follow up, per consensus guidelines. Axillae: No enlarged lymph nodes. Chest Wall: Unremarkable. Bones: Unremarkable. Lungs and Pleura: No pneumothorax or pleural effusions. Mild dependent atelectasis. No suspicious pulmonary consolidations. Heart: Heart size is normal. Findings concerning for anemia. Trace pericardial effusion. Thoracic Vessels: The aorta and pulmonary arteries demonstrate normal size. Atherosclerotic calcifications. Mediastinum and [place]: Multiple calcified lymph nodes. Esophagus: No wall thickening. Moderate hiatal hernia. ABDOMEN: Liver: No solid mass. Gallbladder: Surgically absent. Biliary ducts: Dilated, stable compared to prior. Pancreas: No ductal dilation. Spleen: Size is within normal limits. Adrenal Glands: No adrenal nodules. Kidneys and Ureters: No hydronephrosis. There appears to be a large right renal mass measuring up to 4.8 cm in extending into the hilum. Stomach and Bowel: Wall thickening of the rectum and descending and sigmoid colon. Large stool burden proximally. Peritoneum: No abnormal intraperitoneal fluid. No free air. Diffuse mesenteric stranding. Ventral Wall: No hernia. Abdominal Nodes: No retroperitoneal or mesenteric adenopathy by size criteria. Vessels: Aorta and inferior vena cava are normal in size. Atherosclerotic vascular calcifications. PELVIS: Pelvic Organs: Hysterectomy. Bladder: Cystectomy with neobladder formation. Pelvic Nodes: No enlarged lymph nodes. Miscellaneous: No inguinal hernias are seen. Chronic pelvic decubitus ulcers, greater on the right. Severe fatty atrophy of the lumbar spine and pelvic musculature. Bones: No aggressive osseous abnormality. Chronic deformity of the pelvis is redemonstrated. Decreased osseous mineralization. Degenerative changes of the spine. Spinal cord stimulator. IMPRESSION: There appears to be a large right renal mass with a portion groin into the right renal hilum. This was not definitely seen on prior study. Recommend contrast-enhanced renal protocol MRI or CT for further evaluation. Findings concerning for proctocolitis. Large stool burden proximally, correlate for constipation. Stable chronic findings including moderate hiatal hernia, cholecystectomy with biliary ductal dilatation, granulomatous disease. Please see above for additional chronic findings. Findings are concordant with preliminary interpretation provided by [facility]. Dictated by: Kevin Conte M.D. on 06/06/2024 at 8:26 Approved by: Kevin Conte M.D. on 06/06/2024 at 8:40
[2024-06-06] MEDS: SODIUM CHLORIDE 0.9% 1,000 ML 1000 ML IV (02:18)
[2024-06-06 02:24] LABS: Ur Creatinine Normal (Normal); Ur Specific Gravity Normal (Normal); Urine pH Normal (Normal)
[2024-06-06 02:25] LABS: UR Morphine/Opiate cutoff 300 Positive (Negative); Urine Amphetamines Negative (Negative); Urine Barbiturates Negative (Negative); Urine Benzodiazepines Negative (Negative); Urine Cocaine Negative (Negative); Urine MDMA Negative (Negative); Urine Methadone Negative (Negative); Urine Methamphetamines Negative (Negative); Urine Oxycodone Positive (Negative); Urine Phencyclidine Negative (Negative); Urine Tetrahydrocannabinol Positive (Negative); Urine Tricyclic Antidepressant Negative (Negative)
[2024-06-06 02:36] LABS: Appearance Urine UA SL CLOUDY; Bilirubin Urine UA NEGATIVE (NEGATIVE); Color Urine UA YELLOW; Glucose Urine UA NEGATIVE (Negative); Ketones Urine UA NEGATIVE (NEGATIVE); Leukocyte Esterase Urine UA 3+ (NEGATIVE); Nitrite Urine UA POSITIVE (Negative); Occult Blood Urine UA 2+ (Negative); Protein Urine UA 1+ (Negative); Urobilinogen Urine UA 0.2 E.U./dL (0.2)
[2024-06-06 02:37] LABS: Bacteria Urine Many (>30); Culture Indicated Urine Cult Not Indicated; Mucus Urine 1+ (Negative); RBC Urine 0-1/HPF (0-5/HPF); Squamous Epithelial Cell Urine 1-5 /HPF (0-5/HPF); Urine Volume 10mL (spun); WBC Urine 10-30/HPF (0-5/HPF)
[2024-06-06] MEDS: PIPERACILLIN/TAZO 4.5 GM in SODIUM CHLORIDE 0.9% 100 ML IV (03:15)
--- NOTE | 2024-06-06 03:19 | PC.NURSE ---
0235: this nurse went to CT scan and back with the patient on the monitors.
[2024-06-06] MEDS: VANCOMYCIN 1,000 MG in SODIUM CHLORIDE 0.9% 250 ML 250 MG IV (03:51)
[2024-06-06 03:59] LABS: Lactate (Lactic Acid) 0.5 mmol/L (0.7-2.1)
--- NOTE | 2024-06-06 04:43 | PC.NURSE ---
This nurse attempted to start second PIV on the patient, no success. Casi Kraus RN attempted to start second PIV on the patient as well, no success. Dr. Andrew mayer.
--- NOTE | 2024-06-06 05:21 | P.HP_ITS ---
History of Present Illness History of Present Illness Chief complaint: AMS, Dehydration Narrative: Patient is a 78F, with PMH of paraplegia with urostomy, DVT on Eliquis, HTN, decubitus ulcer with osteomyelitis, hyperlipidemia, HTN, past C diff colitis, depression, OA and chronic pain with T8 intrathecal pain pump, who presents with for altered mentation and random jerking motions for a few days. She is getting wound care for the decubitii. She denies any other symptoms including worsening pain. However, she is confused compared to baseling. She also has had decreased oral intake. In ED, she was reportedly alert, but confused, and not oriented to time. NIHSS was 0. CT brain was acutely unremarkable. CT chest/abdomen/pelvis was done - report pending. She was hypotensive requiring IV fluid boluses and her blood pressure appears to be positional though improved. She was given empiric Zosyn/Vanco. She has leucocytosis and minimal ANKITA from baseline CKD 4. Troponin and BNP were not acutely remarkable as was EKG. Of note, she is on oral vancomycin x2 days for C diff but not having any diarrhea. However, the most recent primary care note does not say that she's currently on oral vanco. Apparently, /POA wants CPR but no intubation. At time of my exam, patient was in ICU room but and rest of family had left already. Patient feels weak and some pain in hips. She says she takes Dilaudid and oxycontin for breakthrough pain at home on top of the pain pump. She normally gets around in a wheelchair. [facility] Medical History Primary osteoarthritis involving multiple joints Chronic anticoagulation Closed fracture of right distal femur C. difficile colitis DVT (deep venous thrombosis) Ulcer of right heel Decubitus ulcer of coccyx Neck pain Myofascial pain Do not resuscitate Spinal cord stimulator status Allergic rhinitis Spondylolisthesis of cervical region History of colonic polyps Depression, major, recurrent Mixed hyperlipidemia Essential hypertension Occipital neuralgia Paraplegic spinal paralysis Surgical History Status post insertion of intrathecal pump Status of other artificial opening of urinary tract Hx laparoscopic cholecystectomy History of [place] fundoplication Hx of hernia repair Hx of cholecystectomy Hx of hysterectomy Hx of spinal fusion History of urostomy Family History Father Heart disease Mother Cancer Stroke Social History household members: spouse Meds Home Medications and Allergies Home Medications Medication Instructions Recorded Confirmed Type implant pain stimulator T8 intraductal 03/31/21 05/31/24 History morphine intrathecal 03/31/21 05/31/24 History cholecalciferol (vitamin D3) 25 25 mcg PO DAILY 05/30/23 05/31/24 History mcg (1,000 unit) capsule tretinoin 0.025 % topical cream See Rx Instructions .Route 12/05/23 05/31/24 Rx .COMPLEX #90 grams Lactobacillus rhamnosus GG 10 1 cap PO BID 12/09/23 05/31/24 History billion cell capsule ascorbic acid (vitamin C) 500 mg mg PO DAILY 12/09/23 05/31/24 History capsule calcium carbonate (Antacid 200 mg PO BID 12/09/23 05/31/24 History (calcium carbonate)) cyanocobalamin (vitamin B-12) 1,000 mcg PO DAILY 12/09/23 05/31/24 History 1,000 mcg capsule melatonin 1 mg tablet 1 mg PO BEDTIME PRN 12/09/23 05/31/24 History DME: Knee Immobilizer #1 ea 12/21/23 05/16/24 Rx apixaban 5 mg tablet 5 mg PO BID #180 tabs 12/21/23 05/31/24 Rx diclofenac sodium 3 % topical gel 1 applic topical BID #100 grams 05/15/24 05/31/24 Rx amlodipine 5 mg tablet 5 mg PO DAILY #90 tabs 05/16/24 05/31/24 Rx doxycycline hyclate 100 mg capsule 100 mg PO BID #14 caps 05/31/24 05/31/24 Rx Allergies Allergy/AdvReac Type Severity Reaction Status Date / Time adhesive tape Allergy Severe removed Verified 05/31/24 13:27 skin (allergy to athletic tape only) sulfamethoxazole Allergy Intermediate HIVES/Rash Verified 05/31/24 13:27 [From BACTRIM] trimethoprim [From BACTRIM] Allergy Intermediate HIVES/Rash Verified 05/31/24 13:27 duloxetine [From CYMBALTA] AdvReac Intermediate STUTTERING, Verified 05/31/24 13:27 SLEEPING ISSUES gabapentin [GABAPENTIN] AdvReac Unknown BECAME Verified 05/31/24 13:27 RECLUSIVE Review of Systems Review of Systems Narrative: As per HPI. Rest of 10-system review negative or unobtainable reliably d/t patient condition Exam Vital Signs (past 8 hours): - 06/05/24 22:53 06/05/24 23:04 06/05/24 23:05 Temperature 97.7 F Pulse Rate 89 89 89 Respiratory Rate 18 Blood Pressure 138/63 Pulse Oximetry 93 94 94 Oxygen Delivery Method Room Air Room Air 06/05/24 23:05 06/05/24 23:30 06/06/24 00:32 Temperature Pulse Rate 91 H 78 Respiratory Rate 16 Blood Pressure 138/63 Pulse Oximetry 93 Oxygen Delivery Method 06/06/24 00:34 06/06/24 00:34 06/06/24 01:00 Temperature Pulse Rate 84 Respiratory Rate 14 Blood Pressure 109/63 96/51 L Pulse Oximetry 93 Oxygen Delivery Method Room Air 06/06/24 01:00 06/06/24 01:30 06/06/24 01:33 Temperature Pulse Rate 80 79 75 Respiratory Rate 19 14 23 Blood Pressure Pulse Oximetry 96 96 97 Oxygen Delivery Method Room Air Room Air 06/06/24 01:33 06/06/24 02:00 06/06/24 02:00 Temperature Pulse Rate 73 Respiratory Rate 16 Blood Pressure 98/54 L 78/44 L Pulse Oximetry 94 Oxygen Delivery Method Room Air 06/06/24 02:03 06/06/24 02:03 06/06/24 02:07 Temperature Pulse Rate 70 Respiratory Rate 17 Blood Pressure 79/45 L 80/46 L Pulse Oximetry 94 Oxygen Delivery Method Room Air 06/06/24 02:07 06/06/24 02:09 06/06/24 02:09 Temperature Pulse Rate 73 70 Respiratory Rate 18 14 Blood Pressure 92/51 L Pulse Oximetry 95 96 Oxygen Delivery Method Room Air Room Air 06/06/24 02:10 06/06/24 02:10 06/06/24 02:20 Temperature Pulse Rate 69 Respiratory Rate 14 Blood Pressure 85/48 L 79/46 L Pulse Oximetry 96 Oxygen Delivery Method Room Air 06/06/24 02:20 06/06/24 02:25 06/06/24 02:25 Temperature Pulse Rate 69 71 Respiratory Rate 15 14 Blood Pressure 89/50 L Pulse Oximetry 96 97 Oxygen Delivery Method Room Air 06/06/24 02:30 06/06/24 02:30 06/06/24 02:35 Temperature Pulse Rate 71 Respiratory Rate 15 Blood Pressure 88/49 L 89/52 L Pulse Oximetry 98 Oxygen Delivery Method Room Air 06/06/24 02:35 06/06/24 02:39 06/06/24 02:39 Temperature Pulse Rate 71 71 Respiratory Rate 15 14 Blood Pressure 99/54 L Pulse Oximetry 98 98 Oxygen Delivery Method 06/06/24 02:40 06/06/24 02:40 06/06/24 02:45 Temperature Pulse Rate 72 Respiratory Rate Blood Pressure 98/53 L 135/60 Pulse Oximetry 98 Oxygen Delivery Method Room Air 06/06/24 02:45 06/06/24 02:50 06/06/24 02:50 Temperature Pulse Rate 79 88 Respiratory Rate 23 20 Blood Pressure 121/68 Pulse Oximetry 97 96 Oxygen Delivery Method Room Air 06/06/24 02:52 06/06/24 02:52 06/06/24 02:55 Temperature Pulse Rate 78 70 Respiratory Rate 20 16 Blood Pressure 127/59 L Pulse Oximetry 98 99 Oxygen Delivery Method Room Air 06/06/24 02:55 06/06/24 03:00 06/06/24 03:00 Temperature Pulse Rate 67 Respiratory Rate 13 Blood Pressure 114/55 L 87/47 L Pulse Oximetry 100 Oxygen Delivery Method 06/06/24 03:05 06/06/24 03:05 06/06/24 03:10 Temperature Pulse Rate 69 Respiratory Rate 13 Blood Pressure 86/50 L 81/43 L Pulse Oximetry 98 Oxygen Delivery Method 06/06/24 03:10 06/06/24 03:15 06/06/24 03:15 Temperature Pulse Rate 68 74 Respiratory Rate 12 13 Blood Pressure 85/49 L Pulse Oximetry 97 95 Oxygen Delivery Method Room Air Room Air 06/06/24 03:20 06/06/24 03:20 06/06/24 03:30 Temperature Pulse Rate 74 91 H Respiratory Rate 14 24 Blood Pressure 93/53 L Pulse Oximetry 94 96 Oxygen Delivery Method Room Air 06/06/24 03:31 06/06/24 03:31 06/06/24 03:40 Temperature Pulse Rate 86 70 Respiratory Rate 15 13 Blood Pressure 149/81 H Pulse Oximetry 95 99 Oxygen Delivery Method 06/06/24 03:40 06/06/24 03:50 06/06/24 03:50 Temperature Pulse Rate 70 Respiratory Rate 16 Blood Pressure 79/41 L 83/45 L Pulse Oximetry 97 Oxygen Delivery Method 06/06/24 04:00 06/06/24 04:00 06/06/24 04:01 Temperature Pulse Rate 71 69 Respiratory Rate 13 13 Blood Pressure 123/60 Pulse Oximetry 97 98 Oxygen Delivery Method 06/06/24 04:01 06/06/24 04:10 06/06/24 04:10 Temperature Pulse Rate 68 Respiratory Rate 13 Blood Pressure 126/58 L 82/44 L Pulse Oximetry 95 Oxygen Delivery Method 06/06/24 04:13 06/06/24 04:13 06/06/24 04:30 Temperature Pulse Rate 68 Respiratory Rate 14 Blood Pressure 94/52 L 139/68 Pulse Oximetry 96 Oxygen Delivery Method 06/06/24 04:30 06/06/24 04:45 06/06/24 04:45 Temperature Pulse Rate 81 66 Respiratory Rate 22 13 Blood Pressure 109/53 L Pulse Oximetry 97 98 Oxygen Delivery Method Room Air 06/06/24 05:00 06/06/24 05:00 06/06/24 05:15 Temperature 97.8 F Pulse Rate 70 Respiratory Rate 12 Blood Pressure 122/58 L 93/55 L Pulse Oximetry 97 Oxygen Delivery Method Room Air 06/06/24 05:15 Temperature Pulse Rate 66 Respiratory Rate 16 Blood Pressure Pulse Oximetry 93 Oxygen Delivery Method Room Air Oxygen Delivery Method Room Air Narrative Exam Narrative: exam conducted entirely through telemedicine with camera and digital stethoscope with help of bedside nurse. Const Other: awake, alert, not oriented to time/date. NAD. Frail. HENMT Other: NC/AT. nares patent. Dry MM. Eyes Other: anicteric sclerae. good eye contact. Neck Other: supple Resp Other: diminished breath sounds throughout, no wheeze Cardio Other: RRR GI Other: s/nt/nd/+BS. ostomy site - R mid abdomen - c/d/i Skin Other: low turgor but no rash Neuro Other: normal speech Extrem Other: trace ankle edema b/l Psych Other: normal mood Objective Imaging CT scan - head: Radiologist's impression: 1. No acute intracranial process. 2. Moderate atrophy and chronic microvascular ischemic changes. Chest x-ray: Radiologist's impression: negative Labs 06/05/24 23:33 06/05/24 23:33 Labs: Laboratory Results - last 24 hr 06/05/24 06/06/24 06/06/24 23:33 00:01 02:09 WBC 13.2 H RBC 3.71 L Hgb 10.5 L Hct 32.9 L MCV 88.7 MCH 28.4 MCHC 32.0 RDW 16.4 H Plt Count 301 Neut % (Auto) 76.3 H Lymph % (Auto) 14.1 L [place] % (Auto) 7.1 Eos % (Auto) 2.0 Baso % (Auto) 0.5 Neut # (Auto) 64784 H Lymph # (Auto) 1900 [place] # (Auto) 900 Eos # (Auto) 300 Baso # (Auto) 100 PT 12.7 H INR 1.1 APTT 34 Sodium 136 L Potassium 5.2 H Chloride 99 Carbon Dioxide 26 BUN 108 H* Creatinine 2.24 H Estimated GFR 22 L BUN/Creatinine Ratio 48.2 H Glucose 96 Lactate 0.8 Calcium 10.0 Magnesium 2.5 H Total Bilirubin 0.5 AST 18 ALT 52 H Alkaline Phosphatase 173 H D Total Creatine Kinase < 20 L Troponin I < 0.012 NT-Pro-B Natriuret Pep 820 H Total Protein 7.4 Albumin 3.8 Globulin 3.6 Albumin/Globulin Ratio 1.1 Lipase 20 L TSH 0.795 Prolactin 13.3 Urine Color Yellow Urine Appearance Sl cloudy Urine pH 7.0 Ur Specific [place] 1.010 Urine Protein 1+ H Urine Glucose (UA) Negative Urine Ketones Negative Urine Occult Blood 2+ H Urine Nitrate Positive H Urine Bilirubin Negative Urine Urobilinogen 0.2 Ur Leukocyte Esterase 3+ H Urine RBC 0-1/hpf Urine WBC 10-30/hpf H Ur Squamous Epith Cells 1-5 /hpf Urine Bacteria Many (>30) H Urine Mucus 1+ H Ur Culture Indicated? Cult not indicated Vol Urine Centrifuged 10ml (spun) U Opiates 300ng/mL cut Positive H Ur Oxycodone Screen Positive H Urine Methadone Screen Negative Acetaminophen < 10 Ur Barbiturates Screen Negative U Tricyclic Antidepress Negative Ur Phencyclidine Scrn Negative Ur Amphetamines Screen Negative U Methamphetamines Scrn Negative Ur MDMA Scrn (Ecstasy) Negative U Benzodiazepines Scrn Negative Urine Cocaine Screen Negative U Marijuana (THC) Screen Positive H Urine Specific [place] Ur Creatinine SARS-CoV-2 (PCR) Negative Influenza A (RT-PCR) Flu a negative Influenza B (RT-PCR) Flu b negative RSV (PCR) Negative 06/06/24 06/06/24 02:09 03:35 WBC RBC Hgb Hct MCV MCH MCHC RDW Plt Count Neut % (Auto) Lymph % (Auto) [place] % (Auto) Eos % (Auto) Baso % (Auto) Neut # (Auto) Lymph # (Auto) [place] # (Auto) Eos # (Auto) Baso # (Auto) PT INR APTT Sodium Potassium Chloride Carbon Dioxide BUN Creatinine Estimated GFR BUN/Creatinine Ratio Glucose Lactate 0.5 L Calcium Magnesium Total Bilirubin AST ALT Alkaline Phosphatase Total Creatine Kinase Troponin I NT-Pro-B Natriuret Pep Total Protein Albumin Globulin Albumin/Globulin Ratio Lipase TSH Prolactin Urine Color Urine Appearance Urine pH Normal Ur Specific [place] Urine Protein Urine Glucose (UA) Urine Ketones Urine Occult Blood Urine Nitrate Urine Bilirubin Urine Urobilinogen Ur Leukocyte Esterase Urine RBC Urine WBC Ur Squamous Epith Cells Urine Bacteria Urine Mucus Ur Culture Indicated? Vol Urine Centrifuged U Opiates 300ng/mL cut Ur Oxycodone Screen Urine Methadone Screen Acetaminophen Ur Barbiturates Screen U Tricyclic Antidepress Ur Phencyclidine Scrn Ur Amphetamines Screen U Methamphetamines Scrn Ur MDMA Scrn (Ecstasy) U Benzodiazepines Scrn Urine Cocaine Screen U Marijuana (THC) Screen Urine Specific [place] Normal Ur Creatinine Normal SARS-CoV-2 (PCR) Influenza A (RT-PCR) Influenza B (RT-PCR) RSV (PCR) Assessment & Plan Assessment and plan (1) Urinary tract infection: Qualifiers: Urinary tract infection type: site unspecified Hematuria presence: with hematuria Qualified Code(s): N39.0 - Urinary tract infection, site not specified; R31.9 - Hematuria, unspecified Status: Acute (2) Dehydration: Status: Acute (3) Acute kidney injury superimposed on chronic kidney disease: Status: Acute (4) Acute metabolic encephalopathy: Status: Acute (5) Chronic anticoagulation: Status: Acute (6) Status post insertion of intrathecal pump: Status: Acute (7) Chronic pain syndrome: Status: Acute (8) CKD (chronic kidney disease) stage 3, GFR 30-59 ml/min: Qualifiers: Chronic kidney disease stage 3 subtype: stage 3a (GFR 45-59) Qualified Code(s): N18.31 - Chronic kidney disease, stage 3a Status: Acute (9) Paraplegic spinal paralysis: Status: Acute (10) Status of other artificial opening of urinary tract: Status: Acute (11) DVT (deep venous thrombosis): Qualifiers: DVT location: lower extremity Affected thrombotic vein of extremity: u nspecified vein of extremity Chronicity: unspecified Laterality: right Qualified Code(s): I82.401 - Acute embolism and thrombosis of unspecified deep veins of right lower extremity Status: Acute Assessment & Plan narrative: 1. Acute UTI, with dehydration & sepsis, with ANKITA on CKD 4, POA 2. Acute metabolic encephalopathy, multifactorial, POA 3. Chronic DOAC anticoagulation d/t DVT, POA 4. Paraplegia with urostomy and chronic pain syndrome with intrathecal pump, POA 5. Decubitus ulcer, POA 6. HTN, hyperlipidemia Plan: 1. Admit to ICU, inpatient, telemetry 2. follow up cultures 3. Check lactate. TSH normal. 4. s/p Vanco/Zosyn. Continue with Rocephin for now as only UTI as source of infection & sepsis 5. Wound care consult 6. Fall precautions, bedrest 7. IV fluids for sepsis to keep SBP>90 or MAP>60 8. Maintain pain pump. Dilaudid or worsening exacerbations. Zofran for nausea. Tylenol for headache/fever 9. H-2 yaw for GI prophylaxis 10. Continue Eliquis for anti-coagulation for DVT 11. Hold cardiac meds for now 12. Daily labs to monitor CBC, renal function Code: Limited - DNI but ok for CPR. This needs to be readdressed with /POA b/c this does not make sense. Diet: Regular Time-Based Coding :: [TOTAL MINUTES] spent with patient and on the chart (including review of chart, obtaining history, exam, reviewing outside data, placing orders, documenting exam and treatment plan, and counseling patient) on [DATE].
[2024-06-06 06:10] LABS: Add Manual Diff / Slide Review NO; Basophils Absolute Auto 100 /uL (0-100); Basophils Percent Auto 0.5 % (0-2); Eosinophils Absolute Auto 200 /uL (0-450); Eosinophils Percent Auto 2.2 % (2-4); Hematocrit 29.9 % (36-46); Hemoglobin 9.6 g/dL (12.0-16.0); Lymphocytes Absolute Auto 1900 /uL (1100-4500); Lymphocytes Percent Auto 16.9 % (25-40); Mean Corpuscular Hemoglobin 28.6 PG (26-34); Mean Corpuscular Volume 89.5 fL (80-100); Monocytes Absolute Auto 800 /uL (0-900); Monocytes Percent Auto 7.2 % (3-14); Neutrophils Absolute Auto 8200 /uL (1500-7000); Neutrophils Percent Auto 73.2 % (50-75); Platelet Count 262 X10^3/uL (150-400); Red Blood Cell Count 3.34 X10^6/uL (4.0-5.2); Red Cell Distribution Width 16.2 % (11.6-14.8); White Blood Cell Count 11.3 X10^3/uL (4.5-11.0)
[2024-06-06 06:19] LABS: BUN Creatinine Ratio 52.2 (6-22); Blood Urea Nitrogen 96 mg/dL (7-17); Calcium 8.6 mg/dL (8.4-10.2); Carbon Dioxide 21 mmol/L (22-32); Chloride 108 mmol/L (98-107); Estimated Glomerular Filt Rate 28 mL/min (>60); Glucose 88 mg/dL (80-110); HEMOLYSIS 20 (0-50); Lactate (Lactic Acid) 0.6 mmol/L (0.7-2.1); Potassium 4.8 mmol/L (3.4-5.1); Sodium 138 mmol/L (137-145)
[2024-06-06] MEDS: cefTRIAXone 1,000 MG in SODIUM CHLORIDE 0.9% 100 ML 200 MG IV (06:34)
[2024-06-06 06:37] LABS: Magnesium 2.2 mg/dL (1.6-2.3)
--- NOTE | 2024-06-06 07:21 | PC.NURSE ---
Patient admitted to ICU room 227 at 0530. Oriented to person and situation, but not place, date, or time, able to answer some questions when Dr. Welch on [place] Tele-monitor. SR, afebrile, SpO2 >95% RA, BP remains labile 130/80 upon admit to 81/43(57) Implanted pain pump to LUQ, urostomy to RLQ, surrounding skin CDI. Photo taken of Stage 4 decub on sacrum, edges are clean without erythema, minimal serous drainage, new Allevyn applied. IVF and Abx continue as ordered. S.O. and brother in room very briefly.
[2024-06-06] MEDS: APIXABAN 5 MG TABLET PO (09:17)
[2024-06-06] MEDS: FAMOTIDINE 20 MG/2 ML VIAL IV (09:17)
[2024-06-06 10:02] LABS: MRSA (Nasal) PCR NOT DETECTED (Not Detect)
--- NOTE | 2024-06-06 10:50 | DIET.CONS ---
Dietary Consultation Note Admission Date: 06/06/2024 05:11 Assessment: 78 y F admitted for sepsis. Dietitian screened for low BMI. Pt sleeping, EMR reviewed. PMH of CKD4 and stage 4 pressure wound and paraplegia. Has severe weight loss between months of September 2023 and Dec 2023 (11% loss in 3 months). Has been unable to regain weight since and further weight loss since. UBW: 54.431 kg on 10/26/23 (-16% weight loss in 1 yr, non-severe) Ht: 162.56 cm Wt: 46 kg BMI: 17.4 pt is paraplegic, adjusted DBW is 58-55 kg based on appropriate BMI for age - 5-10% Last BM: () MNA: Andreas Score: 16 Diet: 06/06/24 Breakfast General (Regular) Diet Diet Modifications: Food Texture: Level 7 - Regular Liquid Consistency: Level 0 - Thin Labs: RBC 3.34 X10^6/uL (4.0-5.2) L 06/06/24 06:00 Hgb 9.6 g/dL (12.0-16.0) L 06/06/24 06:00 Hct 29.9 % (36-46) L 06/06/24 06:00 Creatinine 1.84 mg/dL (0.52-1.04) H 06/06/24 06:00 Lactate 0.6 mmol/L (0.7-2.1) L 06/06/24 06:00 NT-Pro-B Natriuret Pep 820 pg/mL (<450) H 06/05/24 23:33 Nutrition Diagnosis: Unintentional weight loss r/t inadequate oral intakes and increased nutrient needs for wound healing aeb -16% weight loss in 8 months, stage 4 ulcer Interventions: ONS BID, Babak not recommended d/t CKD4 and pt w/ likely inadequate oral intakes. Focus on increasing PO intakes and ONS. EER: [id number] kcals (30-35 kcals/kg per BMI) 60 Monitoring/Evaluations: po intakes, ONS tolerance Electronically Signed by: Anna Patterson 06/06/24 10:50 Clinical Dietitian [address] [id number]
[2024-06-06 11:49] LABS: Adenovirus F 40/41 Not Detected (Not Detect); Astrovirus Not Detected (Not Detect); Campylobacter Not Detected (Not Detect); Cryptosporidium Not Detected (Not Detect); Cyclospora cayetanensis Not Detected (Not Detect); Entamoeba histolytica Not Detected (Not Detect); Enteroaggregative E.coli Not Detected (Not Detect); Enteropathogenic E.coli Not Detected (Not Detect); Enterotoxigenic E.coli It/st Not Detected (Not Detect); Giardia lamblia Not Detected (Not Detect); Norovirus GI/GII Not Detected (Not Detect); Plesiomonsa shigelloides Not Detected (Not Detect); Rotavirus A Not Detected (Not Detect); Salmonella Not Detected (Not Detect); Sapovirus Not Detected (Not Detect); Shiga-like toxin-prod E.coli Not Detected (Not Detect); Shigella/Enteroinvasive E.coli Not Detected (Not Detect); Vibrio Not Detected (Not Detect); Vibrio cholerae Not Detected (Not Detect); Yersinia enterocolitica Not Detected (Not Detect)
[2024-06-06 12:04] LABS: Clostridium difficile toxin AB Detected (Not Detect)
--- NOTE | 2024-06-06 13:47 | P.PN_ITS ---
Subjective Subjective Date Patient Seen: 06/06/24 Time Patient Seen: 13:48 Interval history: Chief complaint: Confusion with secondary to toxic encephalopathy with pyuria bacteria and recurrent Clostridium difficile diarrhea History of present illness: Patient is a 78F, with PMH of paraplegia with urostomy, DVT on Eliquis, HTN, decubitus ulcer with osteomyelitis, hyperlipidemia, HTN, past C diff colitis, depression, OA and chronic pain with T8 intrathecal pain pump, who presents with for altered mentation and random jerking motions for a few days. She is getting wound care for the decubitii. She denies any other symptoms including worsening pain. However, she is confused compared to baseling. She also has had decreased oral intake. In ED, she was reportedly alert, but confused, and not oriented to time. NIHSS was 0. CT brain was acutely unremarkable. CT chest/abdomen/pelvis was done - report pending. She was hypotensive requiring IV fluid boluses and her blood pressure appears to be positional though improved. She was given empiric Zosyn/Vanco. She has leucocytosis and minimal ANKITA from baseline CKD 4. Troponin and BNP were not acutely remarkable as was EKG. Of note, she is on oral vancomycin x2 days for C diff but not having any diarrhea. However, the most recent primary care note does not say that she's currently on oral vanco. Apparently, /POA wants CPR but no intubation. At time of my exam, patient was in ICU room but and rest of family had left already. Patient feels weak and some pain in hips. She says she takes Dilaudid and oxycontin for breakthrough pain at home on top of the pain pump. She normally gets around in a wheelchair. Hospital course: 06/06: Patient is more alert cogent answering questions now clearly and oriented Stool positive for C diff PCR RNA discussed with primary care doctor Jose Raul who shared that this patient has had recurrent Clostridium difficile and requested that Dificid be started discussed with patient and she is in agreement Review of systems: No headache No cough No nausea vomiting new line Physical exam: Elderly female bed-bound at the time my examination HEENT unremarkable Heart sounds distant no murmurs Lungs clear Abdomen nontender Assessment and plan: Sepsis with suspicion of UTI chronic urostomy decubitus ulcer and Clostridium difficile colitis with acute kidney injury and toxic encephalopathy improving with intravenous fluid and antibiotic intervention IV fluid IV ceftriaxone for 3 days Oral Dificid Monitor BUN creatinine Paraplegia chronic pain decubitus ulcer and urostomy Maintain pain pump and manage urostomy History of DVT on anticoagulation Continue Eliquis Code status: Per CPR only Request Dr. Blunt to discuss code status with patient and I spent 35 minutes in evaluation of this patient discussion with ulcerative physicians reviewing chart laboratory and direct patient evaluation Exam Vital Signs (past 8 hours): - 06/06/24 05:50 06/06/24 06:00 06/06/24 06:00 Temperature 97.5 F L Pulse Rate 77 73 Respiratory Rate 20 14 Blood Pressure 130/80 128/60 Pulse Oximetry 96 98 Oxygen Delivery Method Room Air Oxygen Flow Rate 0 0 06/06/24 06:00 06/06/24 06:16 06/06/24 07:00 Temperature Pulse Rate 76 Respiratory Rate 20 Blood Pressure 81/43 L Pulse Oximetry 96 Oxygen Delivery Method Room Air Oxygen Flow Rate 06/06/24 07:00 06/06/24 07:03 06/06/24 07:03 Temperature Pulse Rate 71 68 Respiratory Rate 15 15 Blood Pressure 92/52 L Pulse Oximetry 97 97 Oxygen Delivery Method Oxygen Flow Rate 06/06/24 07:30 06/06/24 07:30 06/06/24 07:36 Temperature Pulse Rate 67 Respiratory Rate 15 Blood Pressure 79/47 L 84/49 L Pulse Oximetry 97 Oxygen Delivery Method Oxygen Flow Rate 06/06/24 07:36 06/06/24 07:38 06/06/24 07:38 Temperature Pulse Rate 65 66 Respiratory Rate 19 16 Blood Pressure 125/57 L Pulse Oximetry 97 94 Oxygen Delivery Method Oxygen Flow Rate 06/06/24 08:00 06/06/24 08:54 06/06/24 08:54 Temperature Pulse Rate 63 67 Respiratory Rate 15 14 Blood Pressure 102/67 Pulse Oximetry 98 97 Oxygen Delivery Method Oxygen Flow Rate 06/06/24 09:00 06/06/24 09:00 06/06/24 10:00 Temperature 98.2 F Pulse Rate 73 67 Respiratory Rate 24 14 Blood Pressure Pulse Oximetry 99 100 Oxygen Delivery Method Oxygen Flow Rate 06/06/24 10:00 06/06/24 10:15 06/06/24 10:15 Temperature 98.4 F Pulse Rate 73 Respiratory Rate 15 Blood Pressure 110/57 L 110/57 L Pulse Oximetry 100 Oxygen Delivery Method Oxygen Flow Rate 06/06/24 10:35 06/06/24 11:00 06/06/24 11:00 Temperature 97.3 F L Pulse Rate 69 Respiratory Rate 13 Blood Pressure Pulse Oximetry 100 Oxygen Delivery Method Nasal Cannula Oxygen Flow Rate 06/06/24 11:13 06/06/24 11:13 06/06/24 11:20 Temperature Pulse Rate 65 Respiratory Rate 12 Blood Pressure 86/47 L 87/48 L Pulse Oximetry 100 Oxygen Delivery Method Oxygen Flow Rate 06/06/24 11:20 06/06/24 12:00 06/06/24 12:17 Temperature Pulse Rate 64 62 65 Respiratory Rate 15 14 15 Blood Pressure Pulse Oximetry 100 99 99 Oxygen Delivery Method Oxygen Flow Rate 06/06/24 12:17 06/06/24 12:30 06/06/24 12:30 Temperature Pulse Rate 64 Respiratory Rate 13 Blood Pressure 93/51 L 92/53 L Pulse Oximetry 99 Oxygen Delivery Method Oxygen Flow Rate 06/06/24 13:00 06/06/24 13:00 Temperature Pulse Rate 84 Respiratory Rate 16 Blood Pressure 142/67 H Pulse Oximetry 100 Oxygen Delivery Method Oxygen Flow Rate Oxygen Delivery Method Nasal Cannula Oxygen Flow Rate 0 Objective Labs 06/06/24 06:00 06/06/24 06:00 Labs: Laboratory Results - last 24 hr 06/05/24 06/06/24 06/06/24 23:33 00:01 02:09 WBC 13.2 H RBC 3.71 L Hgb 10.5 L Hct 32.9 L MCV 88.7 MCH 28.4 MCHC 32.0 RDW 16.4 H Plt Count 301 Neut % (Auto) 76.3 H Lymph % (Auto) 14.1 L [place] % (Auto) 7.1 Eos % (Auto) 2.0 Baso % (Auto) 0.5 Neut # (Auto) 46792 H Lymph # (Auto) 1900 [place] # (Auto) 900 Eos # (Auto) 300 Baso # (Auto) 100 PT 12.7 H INR 1.1 APTT 34 Sodium 136 L Potassium 5.2 H Chloride 99 Carbon Dioxide 26 BUN 108 H* Creatinine 2.24 H Estimated GFR 22 L BUN/Creatinine Ratio 48.2 H Glucose 96 Lactate 0.8 Calcium 10.0 Magnesium 2.5 H Total Bilirubin 0.5 AST 18 ALT 52 H Alkaline Phosphatase 173 H D Total Creatine Kinase < 20 L Troponin I < 0.012 NT-Pro-B Natriuret Pep 820 H Total Protein 7.4 Albumin 3.8 Globulin 3.6 Albumin/Globulin Ratio 1.1 Lipase 20 L TSH 0.795 Prolactin 13.3 Urine Color Yellow Urine Appearance Sl cloudy Urine pH 7.0 Ur Specific [place] 1.010 Urine Protein 1+ H Urine Glucose (UA) Negative Urine Ketones Negative Urine Occult Blood 2+ H Urine Nitrate Positive H Urine Bilirubin Negative Urine Urobilinogen 0.2 Ur Leukocyte Esterase 3+ H Urine RBC 0-1/hpf Urine WBC 10-30/hpf H Ur Squamous Epith Cells 1-5 /hpf Urine Bacteria Many (>30) H Urine Mucus 1+ H Ur Culture Indicated? Cult not indicated Vol Urine Centrifuged 10ml (spun) Nasal Screen MRSA (PCR) Stl C. cayetanensis PCR Stool Rotavirus (PCR) Stool Adenovirus (PCR) Stool Astrovirus (PCR) Stool Cryptosporidium PCR Stl E.coli Shiga Tox PCR St Sh/Enteroin Ecoli PCR Stl Enterotoxigenic E PCR Stool EPEC (PCR) Stl E. histolytica PCR Stool Giardia Lamblia PCR Stool Sapovirus (PCR) Stl P. shigelloides PCR St Y.enterocolitica PCR Stool Vibrio (PCR) Stl Vibrio cholerae PCR Stl Enteroaggr Ecoli PCR Stl Norovirus GI/GII PCR U Opiates 300ng/mL cut Positive H Ur Oxycodone Screen Positive H Urine Methadone Screen Negative Acetaminophen < 10 Ur Barbiturates Screen Negative U Tricyclic Antidepress Negative Ur Phencyclidine Scrn Negative Ur Amphetamines Screen Negative U Methamphetamines Scrn Negative Ur MDMA Scrn (Ecstasy) Negative U Benzodiazepines Scrn Negative Urine Cocaine Screen Negative U Marijuana (THC) Screen Positive H Urine Specific [place] Ur Creatinine Campylobacter (PCR) C. difficile Tox (PCR) SARS-CoV-2 (PCR) Negative Influenza A (RT-PCR) Flu a negative Influenza B (RT-PCR) Flu b negative RSV (PCR) Negative Salmonella (PCR) 06/06/24 06/06/24 06/06/24 02:09 03:35 05:45 WBC RBC Hgb Hct MCV MCH MCHC RDW Plt Count Neut % (Auto) Lymph % (Auto) [place] % (Auto) Eos % (Auto) Baso % (Auto) Neut # (Auto) Lymph # (Auto) [place] # (Auto) Eos # (Auto) Baso # (Auto) PT INR APTT Sodium Potassium Chloride Carbon Dioxide BUN Creatinine Estimated GFR BUN/Creatinine Ratio Glucose Lactate 0.5 L Calcium Magnesium Total Bilirubin AST ALT Alkaline Phosphatase Total Creatine Kinase Troponin I NT-Pro-B Natriuret Pep Total Protein Albumin Globulin Albumin/Globulin Ratio Lipase TSH Prolactin Urine Color Urine Appearance Urine pH Normal Ur Specific [place] Urine Protein Urine Glucose (UA) Urine Ketones Urine Occult Blood Urine Nitrate Urine Bilirubin Urine Urobilinogen Ur Leukocyte Esterase Urine RBC Urine WBC Ur Squamous Epith Cells Urine Bacteria Urine Mucus Ur Culture Indicated? Vol Urine Centrifuged Nasal Screen MRSA (PCR) Not detected Stl C. cayetanensis PCR Stool Rotavirus (PCR) Stool Adenovirus (PCR) Stool Astrovirus (PCR) Stool Cryptosporidium PCR Stl E.coli Shiga Tox PCR St Sh/Enteroin Ecoli PCR Stl Enterotoxigenic E PCR Stool EPEC (PCR) Stl E. histolytica PCR Stool Giardia Lamblia PCR Stool Sapovirus (PCR) Stl P. shigelloides PCR St Y.enterocolitica PCR Stool Vibrio (PCR) Stl Vibrio cholerae PCR Stl Enteroaggr Ecoli PCR Stl Norovirus GI/GII PCR U Opiates 300ng/mL cut Ur Oxycodone Screen Urine Methadone Screen Acetaminophen Ur Barbiturates Screen U Tricyclic Antidepress Ur Phencyclidine Scrn Ur Amphetamines Screen U Methamphetamines Scrn Ur MDMA Scrn (Ecstasy) U Benzodiazepines Scrn Urine Cocaine Screen U Marijuana (THC) Screen Urine Specific [place] Normal Ur Creatinine Normal Campylobacter (PCR) C. difficile Tox (PCR) SARS-CoV-2 (PCR) Influenza A (RT-PCR) Influenza B (RT-PCR) RSV (PCR) Salmonella (PCR) 06/06/24 06/06/24 06:00 09:00 WBC 11.3 H RBC 3.34 L Hgb 9.6 L Hct 29.9 L MCV 89.5 MCH 28.6 MCHC 32.0 RDW 16.2 H Plt Count 262 Neut % (Auto) 73.2 Lymph % (Auto) 16.9 L [place] % (Auto) 7.2 Eos % (Auto) 2.2 Baso % (Auto) 0.5 Neut # (Auto) 8200 H Lymph # (Auto) 1900 [place] # (Auto) 800 Eos # (Auto) 200 Baso # (Auto) 100 PT INR APTT Sodium 138 Potassium 4.8 Chloride 108 H Carbon Dioxide 21 L BUN 96 H Creatinine 1.84 H Estimated GFR 28 L BUN/Creatinine Ratio 52.2 H Glucose 88 Lactate 0.6 L Calcium 8.6 Magnesium 2.2 Total Bilirubin AST ALT Alkaline Phosphatase Total Creatine Kinase Troponin I NT-Pro-B Natriuret Pep Total Protein Albumin Globulin Albumin/Globulin Ratio Lipase TSH Prolactin Urine Color Urine Appearance Urine pH Ur Specific [place] Urine Protein Urine Glucose (UA) Urine Ketones Urine Occult Blood Urine Nitrate Urine Bilirubin Urine Urobilinogen Ur Leukocyte Esterase Urine RBC Urine WBC Ur Squamous Epith Cells Urine Bacteria Urine Mucus Ur Culture Indicated? Vol Urine Centrifuged Nasal Screen MRSA (PCR) Stl C. cayetanensis PCR Not detected Stool Rotavirus (PCR) Not detected Stool Adenovirus (PCR) Not detected Stool Astrovirus (PCR) Not detected Stool Cryptosporidium PCR Not detected Stl E.coli Shiga Tox PCR Not detected St Sh/Enteroin Ecoli PCR Not detected Stl Enterotoxigenic E PCR Not detected Stool EPEC (PCR) Not detected Stl E. histolytica PCR Not detected Stool Giardia Lamblia PCR Not detected Stool Sapovirus (PCR) Not detected Stl P. shigelloides PCR Not detected St Y.enterocolitica PCR Not detected Stool Vibrio (PCR) Not detected Stl Vibrio cholerae PCR Not detected Stl Enteroaggr Ecoli PCR Not detected Stl Norovirus GI/GII PCR Not detected U Opiates 300ng/mL cut Ur Oxycodone Screen Urine Methadone Screen Acetaminophen Ur Barbiturates Screen U Tricyclic Antidepress Ur Phencyclidine Scrn Ur Amphetamines Screen U Methamphetamines Scrn Ur MDMA Scrn (Ecstasy) U Benzodiazepines Scrn Urine Cocaine Screen U Marijuana (THC) Screen Urine Specific [place] Ur Creatinine Campylobacter (PCR) Not detected C. difficile Tox (PCR) Detected H SARS-CoV-2 (PCR) Influenza A (RT-PCR) Influenza B (RT-PCR) RSV (PCR) Salmonella (PCR) Not detected PFSH Medical History Primary osteoarthritis involving multiple joints Chronic anticoagulation Closed fracture of right distal femur C. difficile colitis DVT (deep venous thrombosis) Ulcer of right heel Decubitus ulcer of coccyx Neck pain Myofascial pain Do not resuscitate Spinal cord stimulator status Allergic rhinitis Spondylolisthesis of cervical region History of colonic polyps Depression, major, recurrent Mixed hyperlipidemia Essential hypertension Occipital neuralgia Paraplegic spinal paralysis Surgical History Status post insertion of intrathecal pump Status of other artificial opening of urinary tract Hx laparoscopic cholecystectomy History of [place] fundoplication Hx of hernia repair Hx of cholecystectomy Hx of hysterectomy Hx of spinal fusion History of urostomy Family History Father Heart disease Mother Cancer Stroke Social History household members: spouse Smoking Status: Never smoker alcohol intake: never Assessment & Plan Time-Based Coding :: [TOTAL MINUTES] spent with patient and on the chart (including review of chart, obtaining history, exam, reviewing outside data, placing orders, documenting exam and treatment plan, and counseling patient) on [DATE]. Quality VTE Deep Vein Thrombosis/Pulmonary Embolism Present on Admission: No
[2024-06-06] MEDS: SODIUM CHLORIDE 0.9% 1,000 ML 100 ML IV ×2 (13:49→21:08)
[2024-06-06] MEDS: FIDAXOMICIN 200 MG TABLET PO ×2 (13:50→21:06)
[2024-06-06] MEDS: ACETAMINOPHEN 325 MG TABLET 650 MG PO (17:07)
[2024-06-06] MEDS: LACTOBACILLUS ACIDOPHILUS TABLET 1 EACH PO (17:08)
[2024-06-06] MEDS: APIXABAN 5 MG TABLET 2.5 MG PO (21:06)
[2024-06-07] VITALS (14 sets, daily range): BP systolic 106–165; BP diastolic 55–76; PULSE 68–90; RESP 16–18; TEMP 36.2–37.2; O2SAT 84–100
[2024-06-07] MEDS: ACETAMINOPHEN 325 MG TABLET 650 MG PO ×4 (00:12→23:18)
[2024-06-07] MEDS: HYDROMORPHONE 2 MG TABLET PO ×4 (00:36→23:21)
[2024-06-07] MEDS: cefTRIAXone 1,000 MG in SODIUM CHLORIDE 0.9% 100 ML 200 MG IV (06:12)
[2024-06-07 06:22] LABS: Add Manual Diff / Slide Review NO; Basophils Absolute Auto 100 /uL (0-100); Basophils Percent Auto 0.4 % (0-2); Eosinophils Absolute Auto 300 /uL (0-450); Eosinophils Percent Auto 2.2 % (2-4); Hematocrit 28.4 % (36-46); Hemoglobin 9.1 g/dL (12.0-16.0); Lymphocytes Absolute Auto 1400 /uL (1100-4500); Lymphocytes Percent Auto 9.9 % (25-40); Mean Corpuscular Hemoglobin 28.8 PG (26-34); Mean Corpuscular Volume 89.9 fL (80-100); Monocytes Absolute Auto 800 /uL (0-900); Monocytes Percent Auto 5.5 % (3-14); Neutrophils Absolute Auto 11700 /uL (1500-7000); Platelet Count 271 X10^3/uL (150-400); Red Blood Cell Count 3.16 X10^6/uL (4.0-5.2); Red Cell Distribution Width 16.5 % (11.6-14.8); White Blood Cell Count 14.3 X10^3/uL (4.5-11.0)
[2024-06-07 06:34] LABS: Alanine Aminotransferase 28 IU/L (<35); Albumin 2.5 g/dL (3.5-5.0); Albumin Globulin Ratio 0.9 (1.0-2.8); Alkaline Phosphatase 94 U/L (38-126); Aspartate Aminotransferase 14 IU/L (14-36); BUN Creatinine Ratio 41.6 (6-22); Bilirubin Total 0.3 mg/dL (0.2-1.3); Blood Urea Nitrogen 69 mg/dL (7-17); Calcium 8.4 mg/dL (8.4-10.2); Carbon Dioxide 18 mmol/L (22-32); Chloride 113 mmol/L (98-107); Estimated Glomerular Filt Rate 32 mL/min (>60); Globulin 2.8 g/dL (1.7-4.1); Glucose 85 mg/dL (80-110); HEMOLYSIS < 15 (0-50); Potassium 4.4 mmol/L (3.4-5.1); Sodium 139 mmol/L (137-145); Total Protein 5.3 g/dL (6.3-8.2)
[2024-06-07] MEDS: FIDAXOMICIN 200 MG TABLET PO ×2 (08:16→20:35)
[2024-06-07] MEDS: FAMOTIDINE 20 MG/2 ML VIAL IV (08:16)
[2024-06-07] MEDS: APIXABAN 5 MG TABLET 2.5 MG PO ×2 (08:16→20:35)
[2024-06-07] MEDS: LACTOBACILLUS ACIDOPHILUS TABLET 1 EACH PO ×3 (08:16→17:14)
[2024-06-07] MEDS: SODIUM CHLORIDE 0.9% 1,000 ML 100 ML IV (09:53)
--- NOTE | 2024-06-07 14:34 | CM.DANOTE ---
Patient is a 78 yo female who was admitted on 06/06/24 for AMS, recurrent CDiff, poss UTI. Pt has [employer] for insurance and her PCP is Dr. Joel Blunt. EMR was reviewed. Per MD, pt paraplegic at baseline with hx of urostomy and osteomyelitis and cultures pending for likely UTI and CDiff+. Wound Consult orders placed due to stage 4 decub sacral ulcer, SW called [facility] and pt known to them and last seen Jan [address] Multani on vacation this week and Provider Leticia covering but in the clinic today so will determine if pt can be seen bedside today vs tomorrow. SW met bedside with pt and explained role and she confirms she lives in [place] with her Life Partner Edith in a newly remodeled home that is w/c accessible and ADA compliant as pt's partner Edith is also disabled and has her own LTC insurance and own caregivers to assist. Pt is independent with ADLs and self transfers and was driving until recently and now her brother is currently providing transport when needed. Pt states she is open with [facility] for RN for wound care as she has been dealing with her sacral ulcer for a few months and has home [employer] wound vac at home that she took off for coming to the hospital. Pt very knowledgeable and independent and states she feels she would have much better care returning home with [facility] than SNF. Pt confirms she feels better than yesterday but not quite as strong and focused as baseline, hopeful to be stable for d/c home within a day or two and does not feel any PT/OT needed in the hospital and states her brother can transport her home. SW contacted [facility] and they confirm they have been working with patient for RN and will need new F2F and orders at d/c and SW faxed clinicals to review. F2F done but not sent yet. Plan: SW to follow closely for plan of discharge home with [facility] via brother POV when medically stable. SW to fax d/c summary and F2F and orders to [facility] at discharge. GENIE Morrow Discharge Planning/Care Management CM Discharge Assessment Start: 06/07/24 14:25 Freq: Status: Active Protocol: Document 06/07/24 14:25 BF (Rec: 06/07/24 14:34 BF [id number]) Discharge Planning Assessment Assigned Clinical Coordinator GENIE Montes DPOA/Assigned Designee Name Aba Sharma Contact Information [phone] Advance Directives? Yes: Yes; AD & POLST Advance Directives on File Yes History Provided By Patient,Family Member,Medical Record Has Patient been admitted in last 30 No days? Prior Living Arrangements House Household Members spouse Type of transporation used prior to Drives own vehicle admit Comment Currently brother has been transporting Independent with ADL's Yes Is patient alert and oriented? Yes Needs Assistance With Bathing Caregiver for Another No: Sig other also has LTC insurance and CGs Community Services used prior to Home Health Nurse admission: Comment Open with [facility] RN for wound care DME Already Rented / Owned Bath Bench,Hospital Bed, Wheelchair Patient/Family Preference Home with Home Health Comment Open with [facility] Barriers to Discharge No Discharge Plan Home with Home Health Community Services Home Health Nurse Referrals Initiated Home Health Additional Comment [facility] vs new [facility] HH orders Medicare Choice List Provided Yes Medicare choice list reviewed on patient electronic tablet with SNF/HH Preference [facility] Whiteboard Updated in Patient Room with Yes name and ext. # of Clinical Coordinator Review Status In Process Please Provide Date Initial DC 06/07/24 Assessment Was Performed Next Review Type Continued Stay Review
[2024-06-07 15:36] LABS: Osmolality, Serum 318 mOsmol/kg (280-301)
--- NOTE | 2024-06-07 17:00 | DIET.PN1 ---
Dietary Progress Note Assessment: consulted for wound Met with pt at bedside. Reports much improved appetite, eating all of breakfast this morning. Last remembers eating Tuesday/Tuesday before things became fuzzy. Notes it is difficult for her to eat same portions she used to r/t decrease in ability to taste foods. Confirms around a 20 lb weight loss last year around Oct. Normally eats 3 meals per day, gets meal from senior center, but usually only has a portion of that meal (i.e half pork chop). Ht: 162.56 cm Wt: 46 kg BMI: 17.4 UBW: Last BM: 06/07/24 (06/07/24 04:00) MNA: Andreas Score: 14 Diet: 06/06/24 Breakfast General (Regular) Diet Diet Modifications: Food Texture: Level 7 - Regular Liquid Consistency: Level 0 - Thin Nutrition Percent Meal Consumed 25% 06/06/24 18:00 Percent Meal Consumed 75% 06/06/24 16:19 Percent Meal Consumed 50% 06/06/24 10:58 Labs: RBC 3.16 X10^6/uL (4.0-5.2) L 06/07/24 06:15 Hgb 9.1 g/dL (12.0-16.0) L 06/07/24 06:15 Hct 28.4 % (36-46) L 06/07/24 06:15 Creatinine 1.66 mg/dL (0.52-1.04) H 06/07/24 06:15 Lactate 0.6 mmol/L (0.7-2.1) L 06/06/24 06:00 NT-Pro-B Natriuret Pep 820 pg/mL (<450) H 06/05/24 23:33 Nutrition Diagnosis: Unintentional weight loss r/t inadequate oral intakes d/t decreased taste and increased nutrient needs for wound healing aeb -16% weight loss in 8 months, stage 4 ulcer Interventions: ONS BID, discussed small freq meals, flavorful additions to improve taste (herbs/spices, lemon juice, condiments) EER: [id number] kcals (30-35 kcals/kg per BMI) 55-60 g protein (1.25 g/kg per wound and renal) Monitoring/Evaluations: po intakes Electronically Signed by: Anna Patterson 06/07/24 17:[address] [address]
--- NOTE | 2024-06-07 18:03 | PM.PN.1 ---
Subjective Subjective Date Patient Seen: 06/07/24 Interval history: Chief complaint: Confusion with secondary to toxic encephalopathy with pyuria bacteria and recurrent Clostridium difficile diarrhea History of present illness: Patient is a 78F, with PMH of paraplegia with urostomy, DVT on Eliquis, HTN, decubitus ulcer with osteomyelitis, hyperlipidemia, HTN, past C diff colitis, depression, OA and chronic pain with T8 intrathecal pain pump, who presents with for altered mentation and random jerking motions for a few days. She is getting wound care for the decubitii. She denies any other symptoms including worsening pain. However, she is confused compared to baseling. She also has had decreased oral intake. In ED, she was reportedly alert, but confused, and not oriented to time. NIHSS was 0. CT brain was acutely unremarkable. CT chest/abdomen/pelvis was done - report pending. She was hypotensive requiring IV fluid boluses and her blood pressure appears to be positional though improved. She was given empiric Zosyn/Vanco. She has leucocytosis and minimal ANKITA from baseline CKD 4. Troponin and BNP were not acutely remarkable as was EKG. Of note, she is on oral vancomycin x2 days for C diff but not having any diarrhea. However, the most recent primary care note does not say that she's currently on oral vanco. Apparently, /POA wants CPR but no intubation. At time of my exam, patient was in ICU room but and rest of family had left already. Patient feels weak and some pain in hips. She says she takes Dilaudid and oxycontin for breakthrough pain at home on top of the pain pump. She normally gets around in a wheelchair. Hospital course: 06/06: Patient is more alert cogent answering questions now clearly and oriented Stool positive for C diff PCR RNA discussed with primary care doctor Jose Raul who shared that this patient has had recurrent Clostridium difficile and requested that Dificid be started discussed with patient and she is in agreement 06/07: Patient is super cogent has extensive knowledge of anatomy discussed her sciatica pain stool is firming up Review of systems: No headache No cough No nausea vomiting new line Physical exam: Elderly female bed-bound at the time my examination HEENT unremarkable Heart sounds distant no murmurs Lungs clear Abdomen nontender Assessment and plan: Sepsis with suspicion of UTI chronic urostomy decubitus ulcer and Clostridium difficile colitis with acute kidney injury and toxic encephalopathy improving with intravenous fluid and antibiotic intervention IV fluid IV ceftriaxone discontinued Oral Dificid Monitor BUN creatinine Paraplegia chronic pain decubitus ulcer and urostomy Maintain pain pump and manage urostomy History of DVT on anticoagulation Continue Eliquis Code status: Per CPR only Request Dr. Blunt to discuss code status with patient and I spent 35 minutes in evaluation of this patient discussion with ulcerative physicians reviewing chart laboratory and direct patient evaluation Exam Vital Signs (past 8 hours): - 06/07/24 11:00 06/07/24 14:26 06/07/24 14:26 Temperature 98.9 F Pulse Rate 87 Respiratory Rate 18 Blood Pressure 141/67 H 131/61 Pulse Oximetry 98 95 Oxygen Flow Rate 06/07/24 16:00 Temperature 97.6 F Pulse Rate 79 Respiratory Rate 16 Blood Pressure 163/74 H Pulse Oximetry 92 Oxygen Flow Rate 0 Oxygen Delivery Method Room Air Oxygen Flow Rate 0 Objective Labs 06/07/24 06:15 06/07/24 06:15 Labs: Laboratory Results - last 24 hr 06/05/24 06/07/24 23:33 06:15 WBC 14.3 H RBC 3.16 L Hgb 9.1 L Hct 28.4 L MCV 89.9 MCH 28.8 MCHC 32.0 RDW 16.5 H Plt Count 271 Neut % (Auto) 82.0 H Lymph % (Auto) 9.9 L [place] % (Auto) 5.5 Eos % (Auto) 2.2 Baso % (Auto) 0.4 Neut # (Auto) 16910 H Lymph # (Auto) 1400 [place] # (Auto) 800 Eos # (Auto) 300 Baso # (Auto) 100 Sodium 139 Potassium 4.4 Chloride 113 H Carbon Dioxide 18 L BUN 69 H Creatinine 1.66 H Estimated GFR 32 L BUN/Creatinine Ratio 41.6 H Glucose 85 Serum Osmolality 318 H Calcium 8.4 Total Bilirubin 0.3 AST 14 ALT 28 Alkaline Phosphatase 94 D Total Protein 5.3 L Albumin 2.5 L Globulin 2.8 Albumin/Globulin Ratio 0.9 L PFSH Medical History Primary osteoarthritis involving multiple joints Chronic anticoagulation Closed fracture of right distal femur C. difficile colitis DVT (deep venous thrombosis) Ulcer of right heel Decubitus ulcer of coccyx Neck pain Myofascial pain Do not resuscitate Spinal cord stimulator status Allergic rhinitis Spondylolisthesis of cervical region History of colonic polyps Depression, major, recurrent Mixed hyperlipidemia Essential hypertension Occipital neuralgia Paraplegic spinal paralysis Surgical History Status post insertion of intrathecal pump Status of other artificial opening of urinary tract Hx laparoscopic cholecystectomy History of [place] fundoplication Hx of hernia repair Hx of cholecystectomy Hx of hysterectomy Hx of spinal fusion History of urostomy Family History Father Heart disease Mother Cancer Stroke Social History household members: spouse Smoking Status: Never smoker alcohol intake: never Assessment & Plan Time-Based Coding :: [TOTAL MINUTES] spent with patient and on the chart (including review of chart, obtaining history, exam, reviewing outside data, placing orders, documenting exam and treatment plan, and counseling patient) on [DATE]. Quality VTE Deep Vein Thrombosis/Pulmonary Embolism Present on Admission: No
[2024-06-08 04:20] VITALS: BP 153/78; PULSE 67; RESP 16; TEMP 36.6; O2SAT 99
[2024-06-08 08:00] VITALS: BP 167/60; PULSE 88; RESP 18; TEMP 36.3; O2SAT 96
[2024-06-08] MEDS: APIXABAN 5 MG TABLET 2.5 MG PO (08:37)
[2024-06-08] MEDS: LACTOBACILLUS ACIDOPHILUS TABLET 1 EACH PO ×3 (08:37→17:03)
[2024-06-08] MEDS: FAMOTIDINE 20 MG/2 ML VIAL IV (08:37)
[2024-06-08] MEDS: FIDAXOMICIN 200 MG TABLET PO ×2 (08:37→17:03)
--- NOTE | 2024-06-08 09:24 | PM.DS.1 ---
History of Present Illness History of Present Illness Date Patient Seen: 06/08/24 Chief complaint: AMS, Dehydration Narrative: Chief complaint: Confusion with secondary to toxic encephalopathy with pyuria bacteria and recurrent Clostridium difficile diarrhea History of present illness: Patient is a 78F, with PMH of paraplegia with urostomy, DVT on Eliquis, HTN, decubitus ulcer with osteomyelitis, hyperlipidemia, HTN, past C diff colitis, depression, OA and chronic pain with T8 intrathecal pain pump, who presents with for altered mentation and random jerking motions for a few days. She is getting wound care for the decubitii. She denies any other symptoms including worsening pain. However, she is confused compared to baseling. She also has had decreased oral intake. In ED, she was reportedly alert, but confused, and not oriented to time. NIHSS was 0. CT brain was acutely unremarkable. CT chest/abdomen/pelvis was done - report pending. She was hypotensive requiring IV fluid boluses and her blood pressure appears to be positional though improved. She was given empiric Zosyn/Vanco. She has leucocytosis and minimal ANKITA from baseline CKD 4. Troponin and BNP were not acutely remarkable as was EKG. Of note, she is on oral vancomycin x2 days for C diff but not having any diarrhea. However, the most recent primary care note does not say that she's currently on oral vanco. Apparently, /POA wants CPR but no intubation. At time of my exam, patient was in ICU room but and rest of family had left already. Patient feels weak and some pain in hips. She says she takes Dilaudid and oxycontin for breakthrough pain at home on top of the pain pump. She normally gets around in a wheelchair. Hospital course: 06/06: Patient is more alert cogent answering questions now clearly and oriented Stool positive for C diff PCR RNA discussed with primary care doctor Jose Raul who shared that this patient has had recurrent Clostridium difficile and requested that Dificid be started discussed with patient and she is in agreement 06/07: Patient is super cogent has extensive knowledge of anatomy discussed her sciatica pain stool is firming up skilled nursing case manager note: SW met bedside with pt and explained role and she confirms she lives in [place] with her Life Partner Edith in a newly remodeled home that is w/c accessible and ADA compliant as pt's partner Edith is also disabled and has her own LTC insurance and own caregivers to assist. Pt is independent with ADLs and self transfers and was driving until recently and now her brother is currently providing transport when needed. Pt states she is open with [facility] for RN for wound care as she has been dealing with her sacral ulcer for a few months and has home [employer] wound vac at home that she took off for coming to the hospital. Pt very knowledgeable and independent and states she feels she would have much better care returning home with [facility] than SNF. Pt confirms she feels better than yesterday but not quite as strong and focused as baseline, hopeful to be stable for d/c home within a day or two and does not feel any PT/OT needed in the hospital and states her brother can transport her home. SW contacted [facility] and they confirm they have been working with patient for RN and will need new F2F and orders at d/c and SW faxed clinicals to review. F2F done but not sent yet. Plan: SW to follow closely for plan of discharge home with [facility] via brother POV when medically stable. SW to fax d/c summary and F2F and orders to [facility] at discharge. Jyoti Cormier, TOW CAR DRIVER 06/08: Review of systems: No headache No cough No nausea vomiting new line Physical exam: Elderly female bed-bound at the time my examination HEENT unremarkable Heart sounds distant no murmurs Lungs clear Abdomen nontender Assessment and plan: Sepsis with suspicion of UTI chronic urostomy decubitus ulcer and Clostridium difficile colitis with acute kidney injury and toxic encephalopathy improving with intravenous fluid and antibiotic intervention IV fluid IV ceftriaxone discontinued Oral Dificid Monitor BUN creatinine Paraplegia chronic pain decubitus ulcer and urostomy Maintain pain pump and manage urostomy History of DVT on anticoagulation Continue Eliquis Code status: Per CPR only Request Dr. Blunt to discuss code status with patient and printing supplies sales representative I spent 35 minutes in evaluation of this patient discussion with ulcerative physicians reviewing chart laboratory and direct patient evaluation Discharge Providers Provider Date of admission: 06/06/24 05:11 Discharge Date: 06/08/24 Primary care physician: Joel Blunt MD Consults: 06/06/24 05:24 Consult to Discharge Planning Routine Comment: 06/07/24 10:38 Consult to Dietitian, Adult Routine Comment: Reason For Exam: chronic stage 4 debuc sacral Consult to Wound Care Routine Comment: Chronic stage 4 decub sacral Consulting Provider: [facility] Discharge provider: Kota Arshad MD Exam Vital Signs (past 8 hours): - 06/08/24 04:20 Temperature 98 F Pulse Rate 67 Respiratory Rate 16 Blood Pressure 153/78 H Pulse Oximetry 99 Oxygen Flow Rate 0 Oxygen Delivery Method Room Air Oxygen Flow Rate 0 Objective Labs 06/07/24 06:15 06/07/24 06:15 Labs: Laboratory Results - last 24 hr 06/05/24 23:33 Serum Osmolality 318 H PFSH Medical History Primary osteoarthritis involving multiple joints Chronic anticoagulation Closed fracture of right distal femur C. difficile colitis DVT (deep venous thrombosis) Ulcer of right heel Decubitus ulcer of coccyx Neck pain Myofascial pain Do not resuscitate Spinal cord stimulator status Allergic rhinitis Spondylolisthesis of cervical region History of colonic polyps Depression, major, recurrent Mixed hyperlipidemia Essential hypertension Occipital neuralgia Paraplegic spinal paralysis Surgical History Status post insertion of intrathecal pump Status of other artificial opening of urinary tract Hx laparoscopic cholecystectomy History of [place] fundoplication Hx of hernia repair Hx of cholecystectomy Hx of hysterectomy Hx of spinal fusion History of urostomy Family History Father Heart disease Mother Cancer Stroke Social History household members: spouse Smoking Status: Never smoker alcohol intake: never Discharge Plan Discharge Plan Patient Disposition: Home Health Service Discharge orders & Medications Prescriptions: New Dificid 200 mg Tablet 200 mg PO BID Qty: 16 0RF Lactobacillus acidophilus 25 million cell Capsule 25,000,000 cell PO TIDWM Qty: 90 0RF Dificid 200 mg tablet 200 mg PO Q12H Qty: 16 0RF Continued tretinoin 0.025 % cream See Rx Instructions .ROUTE .COMPLEX Qty: 90 3RF Dose Instruction: APPLY 1 APPLICATION TO AFFECTED AREA IN THE EVENING TO FACE ONCE DAILY EXTERNALLY Rx Instructions: APPLY 1 APPLICATION TO AFFECTED AREA IN THE EVENING TO FACE ONCE DAILY EXTERNALLY ascorbic acid (vitamin C) 500 mg capsule 500 mg PO DAILY calcium carbonate [Antacid (calcium carbonate)] 200 mg calcium (500 mg) tablet,chewable 200 mg PO BID cyanocobalamin (vitamin B-12) 1,000 mcg capsule 1,000 mcg PO DAILY Lactobacillus rhamnosus GG 10 billion cell capsule 1 cap PO BID Rx Instructions: take for 20 days till 12/28/23 melatonin 1 mg tablet 1 mg PO BEDTIME PRN (Reason: Sleep) diclofenac sodium 3 % gel 1 applic topical BID Qty: 100 3RF apixaban 5 mg tablet 5 mg PO BID Qty: 180 1RF morphine auto-injector 3.26 mg intrathecal CONT Rx Instructions: Apomorphine 10mg/mL. Morphine 12mg/mL @3.26mg/day implant pain stimulator T8 1 unit intraductal CONT cholecalciferol (vitamin D3) 25 mcg (1,000 unit) capsule 25 mcg PO DAILY doxycycline hyclate 100 mg capsule 100 mg PO BID Qty: 14 0RF (DME) DME: Knee Immobilizer small See Rx Instructions Rx Instructions: Apply to Right Lower Extremity Follow up/Referrals: Joel Blunt MD [Primary Care Provider] - Visit Report/Discharge Packet Stand Alone Forms: Patient Portal/API, Stroke Signs & Symptoms Discharge Data Primary Care Provider: Joel Blunt V Quality VTE Deep Vein Thrombosis/Pulmonary Embolism Present on Admission: No
--- NOTE | 2024-06-08 10:39 | PM.CN.IH.1 ---
History of Present Illness Consult details Date Patient Seen: 06/07/24 Time Patient Seen: 17:30 Chief complaint: AMS, Dehydration Reason for consult: wound consult Requesting provider: Kota Arshad Narrative: The patient is a 78-year-old female with PMH of T12 paraplegia with urostomy, DVT on eliquis, CKD, chronic c-diff, and chronic pain currently hospitalized in ICU with consult requested for stage IV decubutus ulcer. She has had this decubitus ulcer since September 2023. Patient had been receiving care at wound clinic until January 2024 when she changed to an in-home wound care agency due to difficulty with transportation. She has undergone multiple treatments including IV antibiotics through ID, wet-dry dressings with vashe solution, wound vaccs and multiple dressing therapies. She reports she was recently approved for a flap procedure and is hoping to move forward with this on discharge. She has complex history of hospitalizations associated with chronic c-diff and osteomyelitis. Until recent hospitalization she reports she had been doing better and noticed the wound was getting smaller with the home health agency. Past history is remarkable for having surgery on her coccyx 40 years ago. ?She declines examination of ulcer at this time. Meds Home Medications and Allergies Home Medications Medication Instructions Recorded Confirmed Type implant pain stimulator T8 1 unit intraductal CONT 03/31/21 06/06/24 History morphine 3.26 mg intrathecal CONT Pain 03/31/21 06/06/24 History cholecalciferol (vitamin D3) 25 25 mcg PO DAILY 05/30/23 06/06/24 History mcg (1,000 unit) capsule tretinoin 0.025 % topical cream See Rx Instructions .Route 12/05/23 06/06/24 Rx .COMPLEX #90 grams Lactobacillus rhamnosus GG 10 1 cap PO BID 12/09/23 06/06/24 History billion cell capsule ascorbic acid (vitamin C) 500 mg 500 mg PO DAILY 12/09/23 06/06/24 History capsule calcium carbonate (Antacid 200 mg PO BID 12/09/23 06/06/24 History (calcium carbonate)) cyanocobalamin (vitamin B-12) 1,000 mcg PO DAILY 12/09/23 06/06/24 History 1,000 mcg capsule melatonin 1 mg tablet 1 mg PO BEDTIME PRN Sleep 12/09/23 06/06/24 History apixaban 5 mg tablet 5 mg PO BID #180 tabs 12/21/23 06/06/24 Rx diclofenac sodium 3 % topical gel 1 applic topical BID #100 grams 05/15/24 06/06/24 Rx doxycycline hyclate 100 mg capsule 100 mg PO BID #14 caps 05/31/24 06/06/24 Rx DME: Knee Immobilizer 06/06/24 06/06/24 History Lactobacillus acidophilus 25 25,000,000 cell PO TIDWM #90 caps 06/08/24 Rx million cell capsule fidaxomicin 200 mg tablet (Dificid) 200 mg PO BID #16 tabs 06/08/24 Rx Allergies Allergy/AdvReac Type Severity Reaction Status Date / Time adhesive tape Allergy Severe removed Verified 05/31/24 13:27 skin (allergy to athletic tape only) sulfamethoxazole Allergy Intermediate HIVES/Rash Verified 05/31/24 13:27 [From BACTRIM] trimethoprim [From BACTRIM] Allergy Intermediate HIVES/Rash Verified 05/31/24 13:27 duloxetine [From CYMBALTA] AdvReac Intermediate STUTTERING, Verified 05/31/24 13:27 SLEEPING ISSUES gabapentin [GABAPENTIN] AdvReac Unknown BECAME Verified 05/31/24 13:27 RECLUSIVE Exam Vital Signs (past 8 hours): - Elderly bed bound at time of exam Normal thought pattern and speech with excellent understanding of wound history and past treatments as well as plan Objective Labs 06/07/24 06:15 06/07/24 06:15 Labs: Laboratory Results - last 24 hr 06/05/24 23:33 Serum Osmolality 318 H [facility] Medical History Primary osteoarthritis involving multiple joints Chronic anticoagulation Closed fracture of right distal femur C. difficile colitis DVT (deep venous thrombosis) Ulcer of right heel Decubitus ulcer of coccyx Neck pain Myofascial pain Do not resuscitate Spinal cord stimulator status Allergic rhinitis Spondylolisthesis of cervical region History of colonic polyps Depression, major, recurrent Mixed hyperlipidemia Essential hypertension Occipital neuralgia Paraplegic spinal paralysis Surgical History Status post insertion of intrathecal pump Status of other artificial opening of urinary tract Hx laparoscopic cholecystectomy History of [place] fundoplication Hx of hernia repair Hx of cholecystectomy Hx of hysterectomy Hx of spinal fusion History of urostomy Family History Father Heart disease Mother Cancer Stroke Social History household members: spouse Tobacco & Substance Use Smoking Status: Never smoker alcohol intake: never Assessment & Plan Assessment and plan (1) Decubitus ulcer of coccyx: Qualifiers: Pressure injury stage: stage 3 Qualified Code(s): L89.153 - Pressure ulcer of sacral region, stage 3 Status: Acute (2) Paraplegic spinal paralysis: Status: Acute Plan - Recommend dressing changes to include antimicrobial dressing, for now continue with silver alginate covered with bordered foam QD-QOD depending on drainage - Continue f/u with regular wound care on discharge - Encouraged patient to f/u at wound clinic atleast once monthly so she continues receiving mechanical debridement Time-Based Coding :: [45] spent with patient and on the chart (including review of chart, obtaining history, exam, reviewing outside data, placing orders, documenting exam and treatment plan, and counseling patient) on [06/07/24]. PROFEE Charge Codes Inpatient or Observation consultation: [id number]
--- NOTE | 2024-06-08 10:48 | CM.DPC ---
DCP Continued: Reviewed EMR and team rounds for pt?s medical status. Per hospitalist, pt should be cleared for discharge home with home health today. DCP confirmed that pt can open with [facility] upon discharge, F2F orders and discharge summary to be sent via secure email when available. DCP notified TCM team of discharge, requesting follow up appointment with PCP, Dr. Blunt. Plan: Anticipating dc home with brother to transport in POV, [facility] to follow for RN/OT. CM Team will continue to follow for coordination of discharge plans. TRESSA You
[2024-06-08] MEDS: ONDANSETRON 4 MG/2 ML INJ IV (11:41)
[2024-06-08] MEDS: ACETAMINOPHEN 325 MG TABLET 650 MG PO (11:59)
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
[2024-06-09 15:36] LABS: C difficie Toxins A and B, EIA Positive (Negative)
== END 2024-06-08 18:40 | disposition home health service (06) | DRG 871 ==
LOC: ED 06-06 02:47 → AC 06-06 05:11 → ICU 06-06 05:20
PROVIDERS: Internal Medicine; Admitting Provider Internal Medicine; Emergency Provider Student in an Organized Health Care Education/Training Program; Family Provider Internal Medicine; PCP Internal Medicine; Referring Provider Student in an Organized Health Care Education/Training Program; Visit Provider Internal Medicine
DX: A41.9 Sepsis, unspecified organism (principal); G92.9 Unspecified toxic encephalopathy; L89.153 Pressure ulcer of sacral region, stage 3; N39.0 Urinary tract infection, site not specified; G82.20 Paraplegia, unspecified; N17.9 Acute kidney failure, unspecified; A04.71 Enterocolitis due to Clostridium difficile, recurrent; N18.4 Chronic kidney disease, stage 4 (severe); R31.9 Hematuria, unspecified; E86.0 Dehydration; G89.4 Chronic pain syndrome; E78.5 Hyperlipidemia, unspecified; I12.9 Hypertensive chronic kidney disease with stage 1 through stage 4 chronic kidney disease, or unspecified chronic kidney disease; B96.89 Other specified bacterial agents as the cause of diseases classified elsewhere; R65.20 Severe sepsis without septic shock; Z79.01 Long term (current) use of anticoagulants; Z93.6 Other artificial openings of urinary tract status; Z86.718 Personal history of other venous thrombosis and embolism; Z96.82 Presence of neurostimulator
CPT/HCPCS: 0241U; 36415; 70450; 71045; 71250; 74176; 80048; 80053; 80305; 80329; 81001; 82550; 83605; 83690; 83735; 83880; 83930; 84146; 84443; 84484; 85025; 85610; 85730; 87040; 87077; 87086; 87186; 87324; 87507; 87797; 93005; 96361; 96365; 96367; 99233; 99284; 99285; G0480; J0696; J2405; J2543

== ENCOUNTER 2024-07-15 12:22 | Inpatient (IN) | payer MEDICARE, OTHER, SELFPAY ==
[2024-06-06 12:05] VITALS: BMI 17.4
[2024-07-15] VITALS (15 sets, daily range): BP systolic 117–190; BP diastolic 52–101; PULSE 91–133; RESP 12–22; TEMP 36.3–37.9; O2SAT 94–98; BMI 21.9
--- NOTE | 2024-07-15 12:27 | DI.RAD.S_ITS ---
PROCEDURE: XR CHEST 1V INDICATIONS: suspected sepsis . TECHNIQUE: One view of the chest was acquired. COMPARISON: [facility], CR, XR CHEST 1V, 06/05/2024, 23:19. FINDINGS: Surgical changes and devices: Spinal stimulator leads. Lungs and pleura: Lungs are clear. No pleural effusions or pneumothorax. Mediastinum: Mediastinal contours appear normal. Heart size is normal. Calcified mediastinal and hilar nodes. Bones and chest wall: No suspicious bony lesions. Overlying soft tissues appear unremarkable. IMPRESSION: No acute cardiopulmonary abnormality is seen. Dictated by: Robin Ye M.D. on 07/15/2024 at 13:06 Approved by: Robin Ye M.D. on 07/15/2024 at 13:06
[2024-07-15] MEDS: SODIUM CHLORIDE 0.9% 1,000 ML 1000 ML IV (12:39)
[2024-07-15 12:43] LABS: Appearance Urine UA CLOUDY; Bilirubin Urine UA NEGATIVE (NEGATIVE); Color Urine UA YELLOW; Glucose Urine UA NEGATIVE (Negative); Ketones Urine UA NEGATIVE (NEGATIVE); Leukocyte Esterase Urine UA 3+ (NEGATIVE); Nitrite Urine UA NEGATIVE (Negative); Occult Blood Urine UA 2+ (Negative); Protein Urine UA 2+ (Negative); Specific Gravity Urine UA 1.015 (1.000-1.035); Urobilinogen Urine UA 0.2 E.U./dL (0.2)
[2024-07-15 12:50] LABS: Bacteria Urine Many (>30); Culture Indicated Urine Specimen Cultured; RBC Urine 1-5/HPF (0-5/HPF); Squamous Epithelial Cell Urine None Seen (0-5/HPF); Urine Volume 10mL (spun); WBC Urine 10-30/HPF (0-5/HPF)
--- NOTE | 2024-07-15 12:59 | EKG_ITS ---
[address] [place] [address] Test Date: 2024-07-15 Pat Name: Meggan De Los Santos Department: [facility] Room: Gender: Female Process Controls Technician: LATA : 1945 Requested By: Order Number: [id number] Reading MD: Aramis Keith Measurements Intervals [place] Rate: 119 P: 53 IL: 150 QRS: 18 QRSD: 80 T: 56 QT: 320 QTc: 450 Interpretive Statements Sinus tachycardia Electronically Signed On 07-18-2024 16:17:24 PDT by Aramis Keith
[2024-07-15 13:01] LABS: Add Manual Diff / Slide Review NO; Basophils Absolute Auto 100 /uL (0-100); Basophils Percent Auto 0.3 % (0-2); Eosinophils Absolute Auto 100 /uL (0-450); Eosinophils Percent Auto 0.7 % (2-4); Lymphocytes Absolute Auto 1100 /uL (1100-4500); Lymphocytes Percent Auto 5.9 % (25-40); Mean Corpuscular HGB Conc 33.2 % (30-36); Mean Corpuscular Hemoglobin 29.5 PG (26-34); Mean Corpuscular Volume 88.9 fL (80-100); Monocytes Absolute Auto 400 /uL (0-900); Monocytes Percent Auto 2.4 % (3-14); Neutrophils Absolute Auto 16500 /uL (1500-7000); Neutrophils Percent Auto 90.7 % (50-75); Platelet Count 305 X10^3/uL (150-400); Red Blood Cell Count 3.71 X10^6/uL (4.0-5.2); Red Cell Distribution Width 16.9 % (11.6-14.8); White Blood Cell Count 18.2 X10^3/uL (4.5-11.0)
[2024-07-15 13:09] LABS: PTT Partial Thromboplastin Tim 35 SECONDS (25.1-36.5)
[2024-07-15 13:10] LABS: Alanine Aminotransferase 125 IU/L (<35); Albumin 4.3 g/dL (3.5-5.0); Albumin Globulin Ratio 1.2 (1.0-2.8); Alkaline Phosphatase 133 U/L (38-126); Aspartate Aminotransferase 117 IU/L (14-36); BUN Creatinine Ratio 44.6 (6-22); Bilirubin Total 0.6 mg/dL (0.2-1.3); Blood Urea Nitrogen 82 mg/dL (7-17); Calcium 9.9 mg/dL (8.4-10.2); Carbon Dioxide 22 mmol/L (22-32); Chloride 106 mmol/L (98-107); Estimated Glomerular Filt Rate 28 mL/min (>60); Globulin 3.6 g/dL (1.7-4.1); Glucose 107 mg/dL (70-99); HEMOLYSIS < 15 (0-50); Lactate (Lactic Acid) 0.8 mmol/L (0.7-2.1); Lipase 381 U/L (23-300); Sodium 137 mmol/L (137-145); Total Protein 7.9 g/dL (6.3-8.2)
[2024-07-15 13:28] LABS: Procalcitonin 0.302 ng/mL (<0.5)
--- NOTE | 2024-07-15 13:29 | ED.FEVER ---
HPI - Fever General Chief Complaint: Fever Stated Complaint: fever/confused/paraplegia Time Seen by Provider: 07/15/24 13:29 Source: patient, RN notes reviewed and old records reviewed Mode of arrival: EMS Limitations: altered mental status History of Present Illness HPI Narrative: 78-year-old female history of paraplegia, intrathecal pain pump, DVT on Eliquis, hypertension, decubitus ulcer with osteomyelitis and wound VAC, urostomy, dyslipidemia, prior C diff colitis presents with complaint of confusion and fever. Patient also has a wound on her right foot currently. Patient was admitted 06/05/2024 through 06/08/2024 for toxic encephalopathy with pyuria bacteria and recent C diff infection. Patient returns with complaint of rigors, confusion that started overnight. Patient was complaining of pain all over last night but none currently. She denies headache, denies chest pain or shortness of breath. She was had nausea but no vomiting. Patient and her partner both state no diarrhea, she was paraplegic does not feel any abdominal pain normally. States urostomy has been draining they have not appreciate any changes to the fluid. She has a known wound on the right hip/sacral area but no new drainage. She has a right lower extremity wound and DVT they have not noticed any changes in states the wound has been healing. Patient is able to converse in but has difficulty with answers. Patient's partner at bedside augments history she has a son and a family friend at bedside as well. Patient is currently on Dificid for C diff. had renal mass or change noted on imaging in May that they are watching with primary care outpatient MR has been ordered. Related Data Home Medications Medication Instructions Recorded Confirmed implant pain stimulator T8 1 unit intraductal CONT 03/31/21 06/12/24 morphine 3.26 mg intrathecal CONT Pain 03/31/21 06/12/24 cholecalciferol (vitamin D3) 25 25 mcg PO DAILY 05/30/23 06/12/24 mcg (1,000 unit) capsule ascorbic acid (vitamin C) 500 mg 500 mg PO DAILY 12/09/23 06/12/24 capsule calcium carbonate (Antacid 200 mg PO BID 12/09/23 06/12/24 (calcium carbonate)) cyanocobalamin (vitamin B-12) 1,000 mcg PO DAILY 12/09/23 06/12/24 1,000 mcg capsule melatonin 1 mg tablet 1 mg PO BEDTIME PRN Sleep 12/09/23 06/12/24 amlodipine 5 mg tablet 5 mg PO DAILY 06/21/24 06/21/24 carvedilol 6.25 mg tablet 6.25 mg PO BID 06/21/24 06/21/24 Previous Rx's Medication Instructions Recorded tretinoin 0.025 % topical cream See Rx Instructions .Route 12/05/23 .COMPLEX #90 grams apixaban 5 mg tablet 5 mg PO BID #180 tabs 12/21/23 diclofenac sodium 3 % topical gel 1 applic topical BID #100 grams 05/15/24 Lactobacillus acidophilus 25 25,000,000 cell PO TIDWM #90 caps 06/08/24 million cell capsule fidaxomicin 200 mg tablet (Dificid) 200 mg PO BID #16 tabs 06/14/24 Allergies Allergy/AdvReac Type Severity Reaction Status Date / Time adhesive tape Allergy Severe removed Verified 07/15/24 12:29 skin (allergy to athletic tape only) sulfamethoxazole Allergy Intermediate HIVES/Rash Verified 07/15/24 12:29 [From BACTRIM] trimethoprim [From BACTRIM] Allergy Intermediate HIVES/Rash Verified 07/15/24 12:29 duloxetine [From CYMBALTA] AdvReac Intermediate STUTTERING, Verified 07/15/24 12:29 SLEEPING ISSUES gabapentin [GABAPENTIN] AdvReac Unknown BECAME Verified 07/15/24 12:29 RECLUSIVE Review of Systems Review of Systems ROS Unobtainable: All systems reviewed & are unremarkable except as noted in HPI and below Patient History Medical History Primary osteoarthritis involving multiple joints Chronic anticoagulation Closed fracture of right distal femur C. difficile colitis DVT (deep venous thrombosis) Ulcer of right heel Decubitus ulcer of coccyx Myofascial pain Do not resuscitate Spinal cord stimulator status Allergic rhinitis Spondylolisthesis of cervical region History of colonic polyps Depression, major, recurrent Mixed hyperlipidemia Essential hypertension Occipital neuralgia Paraplegic spinal paralysis Surgical History Status post insertion of intrathecal pump Status of other artificial opening of urinary tract Hx laparoscopic cholecystectomy History of [place] fundoplication Hx of hernia repair Hx of cholecystectomy Hx of hysterectomy Hx of spinal fusion History of urostomy Family History Father Heart disease Mother Cancer Stroke Social History household members: spouse alcohol intake: never alcohol intake frequency: holidays/special occasions only Exam Narrative Exam Narrative: GEN: Elderly female, alert and oriented x 2 self and location, conversant but mildly confused. Patient appears to be in mild distress. HEENT: Atraumatic, pupils are equal round reactive to light, extraocular movements are intact, nares are clear, TMs are clear with no fluid, there is no conjunctival pallor. Throat is clear without any exudates, erythema, tonsillar enlargement or uvular deviation HEART: Regular rate and rhythm without murmur, clicks, rubs. Pulses are equal in upper and lower extremities LUNGS:Lungs clear to auscultation, no wheezes, rales, crackles, chest moves symmetrically ABD:bowel sounds normal, soft, non-tender, no guarding, rebound, rigidity, no masses noted, no hepatosplenomegaly, patient has a intrathecal pump in the left abdomen it is nontender, patient has urostomy on the right which appears to be draining yellow fluid has a little bit of sediment the site itself to close not show any signs of infection. She has a wound VAC on the right hip sacral region. :No CVA tenderness MSCL: Non-tender, normal range of motion of upper extremities, patient has atrophy no movement of lower extremities. Right heel has a wound that appears to be almost healed but the ankle heel and foot warm with some erythema. There is some superficial skin breakdown but no subcutaneous tissue appreciated. NEURO:CN 2-12 intact, sensation normal. Initial Vital Signs Initial Vital Signs: Vital Signs Pulse Rate 133 H 07/15/24 12:26 Course Orders Ordered: ED Orders 07/15/24 12:27 XR chest 1V Stat EKG-12 Lead Stat 07/15/24 12:31 Urinalysis and Microscopic Stat Urine Culture Stat 07/15/24 12:50 Blood Culture Stat Complete Blood Count AUTO DIFF Stat Comprehensive Metabolic Panel Stat Lactate (Lactic Acid) Stat Lipase Stat PTT Partial Thromboplastin Fritz Stat Procalcitonin Stat Prothrombin Time INR Stat Ondansetron HCl (Ondansetron 4 Mg Odt) 4 mg PO NOW PRN PRN Reason: Nausea And Vomiting Discontinued Medications Acetaminophen (Acetaminophen 325 Mg Tablet) 975 mg PO NOW ONE Stop: 07/15/24 14:03 Last Admin: 07/15/24 14:10 Dose: 975 mg Sodium Chloride (Normal Saline 0.9%) 1,000 mls @ 1,000 mls/hr IV BOLUS ONE Stop: 07/15/24 13:26 Last Admin: 07/15/24 12:39 Dose: 1,000 mls/hr Documented By: PUNEET Ceftriaxone Sodium 2,000 mg/ (Sodium Chloride) 100 mls @ 200 mls/hr IV NOW ONE Stop: 07/15/24 14:03 Last Admin: 07/15/24 14:11 Dose: 200 mls/hr Ondansetron HCl (Ondansetron 4 Mg/2 Ml Inj) 4 mg IV NOW PRN PRN Reason: Nausea And Vomiting Last Admin: 07/15/24 14:10 Dose: 4 mg Vital Signs Vital signs: Vital Signs - 8 hr 07/15/24 12:26 07/15/24 12:27 07/15/24 12:27 Temperature Pulse Rate 133 H 122 H Respiratory Rate 14 Blood Pressure 190/95 H Pulse Oximetry 98 Oxygen Delivery Method 07/15/24 12:29 07/15/24 12:30 07/15/24 12:30 Temperature 100.3 F H Pulse Rate 124 H 123 H Respiratory Rate 13 16 Blood Pressure 189/101 H 189/101 H Pulse Oximetry 98 98 Oxygen Delivery Method Room Air 07/15/24 13:00 07/15/24 13:00 07/15/24 13:15 Temperature Pulse Rate 120 H 115 H Respiratory Rate 12 12 Blood Pressure 165/87 H Pulse Oximetry 95 94 Oxygen Delivery Method 07/15/24 13:15 07/15/24 13:30 07/15/24 13:30 Temperature Pulse Rate 112 H Respiratory Rate 18 Blood Pressure 160/85 H 150/79 H Pulse Oximetry 96 Oxygen Delivery Method 07/15/24 13:57 Temperature 100.1 F H Pulse Rate Respiratory Rate Blood Pressure Pulse Oximetry Oxygen Delivery Method MDM - Fever Lab Data 07/15/24 12:50 07/15/24 12:50 Labs: Lab Results 07/15/24 07/15/24 Range/Units 12:31 12:50 WBC 18.2 H (4.5-11.0) X10^3/uL RBC 3.71 L (4.0-5.2) X10^6/uL Hgb 11.0 L (12.0-16.0) g/dL Hct 33.0 L (36-46) % MCV 88.9 (80-100) fL MCH 29.5 (26-34) PG MCHC 33.2 (30-36) % RDW 16.9 H (11.6-14.8) % Plt Count 305 (150-400) X10^3/uL Neut % (Auto) 90.7 H (50-75) % Lymph % (Auto) 5.9 L (25-40) % [place] % (Auto) 2.4 L (3-14) % Eos % (Auto) 0.7 L (2-4) % Baso % (Auto) 0.3 (0-2) % Neut # (Auto) 40693 H (0432-3369) /uL Lymph # (Auto) 1100 (9981-5942) /uL [place] # (Auto) 400 (0-900) /uL Eos # (Auto) 100 (0-450) /uL Baso # (Auto) 100 (0-100) /uL PT 11.0 (9.4-12.5) SECONDS INR 1.0 (0.9-1.3) APTT 35 (25.1-36.5) SECONDS Sodium 137 (137-145) mmol/L Potassium 5.0 (3.4-5.1) mmol/L Chloride 106 (98-107) mmol/L Carbon Dioxide 22 (22-32) mmol/L BUN 82 H (7-17) mg/dL Creatinine 1.84 H (0.52-1.04) mg/dL Estimated GFR 28 L (>60) mL/min BUN/Creatinine Ratio 44.6 H (6-22) Glucose 107 H (70-99) mg/dL Lactate 0.8 (0.7-2.1) mmol/L Calcium 9.9 (8.4-10.2) mg/dL Total Bilirubin 0.6 (0.2-1.3) mg/dL AST 117 H (14-36) IU/L ALT 125 H (<35) IU/L Alkaline Phosphatase 133 H (38-126) U/L Total Protein 7.9 (6.3-8.2) g/dL Albumin 4.3 (3.5-5.0) g/dL Globulin 3.6 (1.7-4.1) g/dL Albumin/Globulin Ratio 1.2 (1.0-2.8) Lipase 381 H (23-300) U/L Procalcitonin 0.302 (<0.5) ng/mL Urine Color Yellow Urine Appearance Cloudy Urine pH 8.0 (4.5-8.0) Ur Specific [place] 1.015 (1.000-1.035) Urine Protein 2+ H (Negative) Urine Glucose (UA) Negative (Negative) g/dL Urine Ketones Negative (NEGATIVE) Urine Occult Blood 2+ H (Negative) Urine Nitrate Negative (Negative) Urine Bilirubin Negative (NEGATIVE) Urine Urobilinogen 0.2 (0.2) E.U./dL Ur Leukocyte Esterase 3+ H (NEGATIVE) Urine RBC 1-5/hpf (0-5/HPF) Urine WBC 10-30/hpf H (0-5/HPF) Ur Squamous Epith Cells None seen (0-5/HPF) Urine Bacteria Many (>30) H (None) Ur Culture Indicated? Specimen cultured Vol Urine Centrifuged 10ml (spun) ECG Data Attestation: I personally reviewed and interpreted this ECG as follows: Prior ECG tracings: available for review Interpretation: Sinus tachycardia rate of 119 HI 150 QRS 80 QTC of 450. No sort ST elevation, nonspecific change patient was prior EKG from 06/05/2024 which showed sinus rhythm with occasional PVCs patient was some nonspecific change. [facility] Narrative Medical decision making narrative: EKG sinus tach nonspecific change. Labs show white count 18 hemoglobin of 11, platelets of 305 patient has been mildly elevated throughout May of 2024 but has trended upwards in that timeframe. Predominance of neutrophils. Coags are negative, creatinine is 1.84 appears fairly consistent with baseline, patient has been as high as 2.24 on June 05 was 1.66 for 10. Patient's BUN is 82 electrolytes are normal with a sodium 137 potassium of 5 chloride of 106 CO2 of 22 glucose of 107 lactate is 0.8 bilirubin is normal but AST ALT are 117 and 125 respectively with a alk-phos of 133 lipase is 381 procalcitonin is 0.302. Urinalysis shows 2+ protein 2+ blood, negative nitrates 3+ leuks 1-5 RBCs 10-30 WBCs no squamous many bacteria was sent for culture. Chest x-ray shows no acute change. Patient has a 1 L bolus, antibiotics. We will discuss with the hospitalist as patient was high-risk for recurrent C diff but also has multiple potential sources for her infection. 78-year-old female paraplegia, patient meets septic criteria has a white count of 18 is tachycardic has multiple potential sources of infection and also prior C diff and currently on Dificid. Urine does show changes consistent with infection although colonization as possible, patient's has a small wound that appears superficial but there is warmth and erythema to the ankle and foot over that area could also be a source. We will hold off on 30 cc/kilos bolus patient was tachycardic but more hypertensive based on her age do not wish to fluid overload her at this time. Spoke with Dr. Arshad, hospitalist accepts for inpatient. Reviewed most recent urine culture we will start with Rocephin. He will evaluate the patient and adjust treatment as necessary. Discharge Plan Departure Patient Disposition: Admitted As Inpatient Clinical Impression: Sepsis, Fever Admit Date/Time: 07/15/24 14:04 Admit Provider: Kota Arshad
[2024-07-15] MEDS: ONDANSETRON 4 MG/2 ML INJ IV (14:10)
[2024-07-15] MEDS: ACETAMINOPHEN 325 MG TABLET 975 MG PO (14:10)
[2024-07-15] MEDS: cefTRIAXone 2,000 MG in SODIUM CHLORIDE 0.9% 100 ML 200 MG IV (14:11)
--- NOTE | 2024-07-15 15:31 | P.HP_ITS ---
History of Present Illness History of Present Illness Date Patient Seen: 07/15/24 Chief complaint: fever/confused/paraplegia Narrative: Chief complaint: Fever encephalopathy confusion secondary to recurrent UTI with urostomy History of present illness: 78-year-old female history of paraplegia, intrathecal pain pump, DVT on Eliquis, hypertension, decubitus ulcer with osteomyelitis and wound VAC, urostomy, dyslipidemia, prior C diff colitis presents with complaint of confusion and fever. Patient also has a wound on her right foot currently. Patient was admitted 06/05/2024 through 06/08/2024 for toxic encephalopathy with pyuria bacteria and recent C diff infection. Patient returns with complaint of rigors, confusion that started overnight. States urostomy has been draining they have not appreciate any changes to the fluid. She has a known wound on the right hip/sacral area but no new drainage. She has a right lower extremity wound and DVT they have not noticed any changes in states the wound has been healing. Patient is currently on Dificid for C diff. Patient has had renal mass or change noted on imaging in May that they are watching with primary care outpatient MR has been ordered. Findings in the emergency department: Patient is able to converse in but has difficulty with answers. Patient's partner at bedside augments history she has a son and a family friend at bedside as well. Urinalysis is from urostomy which is of limited reliability 10-30 white blood cells per high-power field 3+ leukocyte esterase and 3+ bacteria White blood cell count 8.2 hemoglobin 11 91% neutrophils Sodium 137 potassium 5 BUN 82 creatinine 1.8 lipase 381 Patient started admitted on sepsis protocol Review of systems: Patient is not cognitively intact enough to participate Physical exam: Alert but confused elderly female very pleasant HEENT unremarkable except dry oropharynx Neck no carotid bruits Heart rate and rhythm regular Lungs diminished breath sounds but no rales Abdomen nondistended bowel sounds present Extremities with muscle wasting from paralysis There is an unstageable sacral ulcer And stage I pressure injuries to both heels Assessment and plan: Sepsis likely source urinary tract infection from urostomy once again as evidenced by fever leukocytosis toxic encephalopathy acute kidney injury * Urine and blood cultures * IV ceftriaxone 1 g q.12 * Vigorous fluid resuscitation Sacral decubitus ulcer * Continue wound VAC * Does not appear to be source of infection Recurrent Clostridium difficile colitis * Reportedly has completed course of Dificid since admission 1 month ago Renal mass seen on CT 06/06/2024 * Follow-up imaging DVT PFSH Medical History Primary osteoarthritis involving multiple joints Chronic anticoagulation Closed fracture of right distal femur C. difficile colitis DVT (deep venous thrombosis) Ulcer of right heel Decubitus ulcer of coccyx Myofascial pain Do not resuscitate Spinal cord stimulator status Allergic rhinitis Spondylolisthesis of cervical region History of colonic polyps Depression, major, recurrent Mixed hyperlipidemia Essential hypertension Occipital neuralgia Paraplegic spinal paralysis Surgical History Status post insertion of intrathecal pump Status of other artificial opening of urinary tract Hx laparoscopic cholecystectomy History of [place] fundoplication Hx of hernia repair Hx of cholecystectomy Hx of hysterectomy Hx of spinal fusion History of urostomy Family History Father Heart disease Mother Cancer Stroke Social History household members: significant other Smoking Status: Never smoker alcohol intake: current Meds Home Medications and Allergies Home Medications Medication Instructions Recorded Confirmed Type implant pain stimulator T8 1 unit intraductal CONT 03/31/21 07/15/24 History morphine 3.26 mg intrathecal CONT Pain 03/31/21 07/15/24 History cholecalciferol (vitamin D3) 25 25 mcg PO DAILY 05/30/23 07/15/24 History mcg (1,000 unit) capsule tretinoin 0.025 % topical cream See Rx Instructions .Route 12/05/23 07/15/24 Rx .COMPLEX #90 grams ascorbic acid (vitamin C) 500 mg 500 mg PO DAILY 12/09/23 07/15/24 History capsule calcium carbonate (Antacid 200 mg PO BID 12/09/23 07/15/24 History (calcium carbonate)) cyanocobalamin (vitamin B-12) 1,000 mcg PO DAILY 12/09/23 07/15/24 History 1,000 mcg capsule melatonin 1 mg tablet 1 mg PO BEDTIME PRN Sleep 12/09/23 07/15/24 History apixaban 5 mg tablet 5 mg PO BID #180 tabs 12/21/23 07/15/24 Rx diclofenac sodium 3 % topical gel 1 applic topical BID #100 grams 05/15/24 07/15/24 Rx Lactobacillus acidophilus 25 25,000,000 cell PO TIDWM #90 caps 06/08/24 07/15/24 Rx million cell capsule fidaxomicin 200 mg tablet (Dificid) 200 mg PO BID #16 tabs 06/14/24 07/15/24 Rx amlodipine 5 mg tablet 5 mg PO DAILY 06/21/24 07/15/24 History carvedilol 6.25 mg tablet 6.25 mg PO BID 06/21/24 07/15/24 History Allergies Allergy/AdvReac Type Severity Reaction Status Date / Time adhesive tape Allergy Severe removed Verified 07/15/24 12:29 skin (allergy to athletic tape only) sulfamethoxazole Allergy Intermediate HIVES/Rash Verified 07/15/24 12:29 [From BACTRIM] trimethoprim [From BACTRIM] Allergy Intermediate HIVES/Rash Verified 07/15/24 12:29 duloxetine [From CYMBALTA] AdvReac Intermediate STUTTERING, Verified 07/15/24 12:29 SLEEPING ISSUES gabapentin [GABAPENTIN] AdvReac Unknown BECAME Verified 07/15/24 12:29 RECLUSIVE Exam Vital Signs (past 8 hours): - 07/15/24 12:26 07/15/24 12:27 07/15/24 12:27 Temperature Pulse Rate 133 H 122 H Respiratory Rate 14 Blood Pressure 190/95 H Pulse Oximetry 98 Oxygen Delivery Method 07/15/24 12:29 07/15/24 12:30 07/15/24 12:30 Temperature 100.3 F H Pulse Rate 124 H 123 H Respiratory Rate 13 16 Blood Pressure 189/101 H 189/101 H Pulse Oximetry 98 98 Oxygen Delivery Method Room Air 07/15/24 13:00 07/15/24 13:00 07/15/24 13:15 Temperature Pulse Rate 120 H 115 H Respiratory Rate 12 12 Blood Pressure 165/87 H Pulse Oximetry 95 94 Oxygen Delivery Method 07/15/24 13:15 07/15/24 13:30 07/15/24 13:30 Temperature Pulse Rate 112 H Respiratory Rate 18 Blood Pressure 160/85 H 150/79 H Pulse Oximetry 96 Oxygen Delivery Method 07/15/24 13:48 07/15/24 13:48 07/15/24 13:57 Temperature 100.1 F H Pulse Rate 118 H Respiratory Rate 22 Blood Pressure 151/92 H Pulse Oximetry 98 Oxygen Delivery Method 07/15/24 14:00 07/15/24 14:00 07/15/24 14:10 Temperature 100.1 F H Pulse Rate 107 H Respiratory Rate 16 Blood Pressure 152/75 H Pulse Oximetry 97 Oxygen Delivery Method 07/15/24 14:30 07/15/24 14:30 Temperature Pulse Rate 103 H Respiratory Rate 12 Blood Pressure 170/80 H Pulse Oximetry 98 Oxygen Delivery Method Oxygen Delivery Method Room Air Objective Labs 07/15/24 12:50 07/15/24 12:50 Labs: Laboratory Results - last 24 hr 07/15/24 07/15/24 12:31 12:50 WBC 18.2 H RBC 3.71 L Hgb 11.0 L Hct 33.0 L MCV 88.9 MCH 29.5 MCHC 33.2 RDW 16.9 H Plt Count 305 Neut % (Auto) 90.7 H Lymph % (Auto) 5.[address] [place] % (Auto) 2.4 L Eos % (Auto) 0.7 L Baso % (Auto) 0.3 Neut # (Auto) 14755 H Lymph # (Auto) 1100 [place] # (Auto) 400 Eos # (Auto) 100 Baso # (Auto) 100 PT 11.0 INR 1.0 APTT 35 Sodium 137 Potassium 5.0 Chloride 106 Carbon Dioxide 22 BUN 82 H Creatinine 1.84 H Estimated GFR 28 L BUN/Creatinine Ratio 44.6 H Glucose 107 H Lactate 0.8 Calcium 9.9 Total Bilirubin 0.6 AST 117 H ALT 125 H Alkaline Phosphatase 133 H Total Protein 7.9 Albumin 4.3 Globulin 3.6 Albumin/Globulin Ratio 1.2 Lipase 381 H Procalcitonin 0.302 Urine Color Yellow Urine Appearance Cloudy Urine pH 8.0 Ur Specific [place] 1.015 Urine Protein 2+ H Urine Glucose (UA) Negative Urine Ketones Negative Urine Occult Blood 2+ H Urine Nitrate Negative Urine Bilirubin Negative Urine Urobilinogen 0.2 Ur Leukocyte Esterase 3+ H Urine RBC 1-5/hpf Urine WBC 10-30/hpf H Ur Squamous Epith Cells None seen Urine Bacteria Many (>30) H Ur Culture Indicated? Specimen cultured Vol Urine Centrifuged 10ml (spun) Assessment & Plan Time-Based Coding :: 75 minutes spent with patient and on the chart (including review of chart, obtaining history, exam, reviewing outside data, placing orders, documenting exam and treatment plan, and counseling patient) .
--- NOTE | 2024-07-15 16:33 | PC.WOUNDPHOT ---
upload 1 2
--- NOTE | 2024-07-15 16:36 | PC.WOUNDPHOT ---
upload 2
--- NOTE | 2024-07-15 16:38 | PC.NURSE ---
admit pt to AC from ER around 1500. Denies pain. States has a wound vac to coccyx. Pt rolled to side upon slider board transfer from ED stretcher into bed. When rolled to side, pt's buttocks/backside covered in stool. Wound vac was dislodged and rolled up on pt's back. Pt's skin cleansed and open wound bed cleansed with saline. Hospitalist at bedside to assess wound. States to reinstate wound vac. coordinator aware of need for equipment (wound vac). Brown coloration surrounding wound, thought to be from adhesive but is not coming off with saline or with adhesive remover. notified of the same. Photos taken to document wounds. Wound vac placed and patent to suction.
--- NOTE | 2024-07-15 19:07 | PC.NURSE ---
patient arrived from ED this afternoon. She is pleasant but forgetful and lethargic. per family she is normally OX4.She has wound vac replaced. Loose liquid stool x2. Patient is cleaned and turned. Urostomy bag changed to night bag, urine is cloudy and foul smelling. wound photos taken and posted. Encouraged po intake however she fell asleep. Continuous monitoring, q 2 turning, woun vac, heel cushions applied, brent care, skin care, bed alarm, call light in place. Patient is placed on eneteric precautions, stool sent to test for c-diff.
[2024-07-15 20:03] LABS: Clostridium Difficile Tox PCR Positive for C. diff (Negative)
[2024-07-15] MEDS: CALCIUM CARBONATE 500 MG TAB 200 MG PO (21:23)
[2024-07-15] MEDS: APIXABAN 5 MG TABLET PO (21:23)
[2024-07-15] MEDS: carvediloL 3.125 MG TABLET 6.25 MG PO (21:23)
[2024-07-16] VITALS (9 sets, daily range): BP systolic 130–173; BP diastolic 68–97; PULSE 84–106; RESP 18–19; TEMP 36.2–37; O2SAT 94–98
--- NOTE | 2024-07-16 03:04 | PC.NURSE ---
Addendum entered by Esperanza Leblanc R.N. 07/16/24 05:04: Patient is AOx3 but does get easily confused and does have difficulty expressing herself. TALENT PARTNER/RN checked on patient at 0300 and patient did not want to be bridged with pillows, staff checked to see if patient had any other needs; patient did not. RN came to check on patient at 0400 and patient was upset that staff had not came and checked on her since she believed she notified staff using call light at 0330, unfortunately patient was attempting to notify staff using the bed rail call light button (that do not function) instead of the actual call light remote. RN educated patient drug enforcement administration agent light remote function and apologized to Patient for the misunderstanding. Patient stated it was her fault she had forgotten, but that she is just very concerned about pressure injuries and wanted to make sure that staff was checking on her every hour. Patient would like staff to remind her to reposition every 2 hours or less, but that she would like to do it independently without assistance; patient said she will notify staff when she needs help. TALENT PARTNER asked patient if you are asleep would you like us to wake you to reposition? patient stated yes that is a wonderful idea. Moving forward staff will wake patient for q2hr turns (Patient slept thru 2 turns in the beginning of shift due to fatigue and deep sleep). Patient reoriented to call light remote and function and staff hourly rounding. Door will be left open so that in event of confusing patient can notify passing staff of needs as well. TALENT PARTNER and RN did a full brief change and offered a bed bath but patient refused due to her having issues with controlling her body temperature. Patient said she would let staff know when she wanted to have a bath and oral hygiene later. founding partner aware of situation and action taken. Original Note: senior data warehouse developer, Patient informed RN and TALENT PARTNER that after brief change that she believed her ostomy site was leaking, RN assessed and did feel some damp area around the bottom of ostomy. RN went to check to see if facility had the same supplies to facilitate a site change. We do not carry same products. Urology will be notified in A.M. for site change. Patient said that she also has lots of supplies at home and that her partner will bring them; in the morning. founding partner aware.
--- NOTE | 2024-07-16 09:05 | P.PN_ITS ---
Subjective Subjective Date Patient Seen: 07/16/24 Interval history: Chief complaint: Fever encephalopathy confusion secondary to recurrent UTI with urostomy History of present illness: 78-year-old female history of paraplegia, intrathecal pain pump, DVT on Eliquis, hypertension, decubitus ulcer with osteomyelitis and wound VAC, urostomy, dyslipidemia, prior C diff colitis presents with complaint of confusion and fever. Patient also has a wound on her right foot currently. Patient was admitted 06/05/2024 through 06/08/2024 for toxic encephalopathy with pyuria bacteria and recent C diff infection. Patient returns with complaint of rigors, confusion that started overnight. States urostomy has been draining they have not appreciate any changes to the fluid. She has a known wound on the right hip/sacral area but no new drainage. She has a right lower extremity wound and DVT they have not noticed any changes in states the wound has been healing. Patient is currently on Dificid for C diff. Patient has had renal mass or change noted on imaging in May that they are watching with primary care outpatient MR has been ordered. Findings in the emergency department: Patient is able to converse in but has difficulty with answers. Patient's partner at bedside augments history she has a son and a family friend at bedside as well. Urinalysis is from urostomy which is of limited reliability 10-30 white blood cells per high-power field 3+ leukocyte esterase and 3+ bacteria White blood cell count 8.2 hemoglobin 11 91% neutrophils Sodium 137 potassium 5 BUN 82 creatinine 1.8 lipase 381 Patient started admitted on sepsis protocol Hospital course: 07/16: No sweats or chills overnight no nausea or vomiting patient cogent today informed me that she has an appointment to fill her intrathecal pain pump in [place] at noon on Tuesday the 18 of July. Hopefully she will be fit to travel by that morning she will have to leave early Review of systems: No night sweats or chills No difficulty swallowing No chest pains or palpitations No cough or shortness a breath No abdominal pain nausea vomiting Physical exam: Alert and less confused elderly female very pleasant HEENT unremarkable except dry oropharynx Neck no carotid bruits Heart rate and rhythm regular Lungs diminished breath sounds but no rales Abdomen nondistended bowel sounds present Extremities with muscle wasting from paralysis There is an unstageable sacral ulcer And stage I pressure injuries to both heels Assessment and plan: Sepsis likely source urinary tract infection from urostomy once again as evidenced by fever leukocytosis toxic encephalopathy acute kidney injury * Urine and blood cultures * IV ceftriaxone 1 g q.12 * Vigorous fluid resuscitation Sacral decubitus ulcer * Continue wound VAC * Does not appear to be source of infection Recurrent Clostridium difficile colitis * Reportedly has completed course of Dificid since admission 1 month ago Renal mass seen on CT 06/06/2024 * Follow-up imaging as outpatient Intrathecal pain pump due for refill TuesdayJuly 18 at noon in [place] * Hopefully will be fit for travel by Tuesday around 6:00 a.m. make this appointment DVT * Covered with anticoagulation Time-Based Coding :: 35 minutes spent with patient and on the chart (including review of chart, obtaining history, exam, reviewing outside data, placing orders, documenting exam and treatment plan, and counseling patient) . Exam Vital Signs (past 8 hours): - 07/16/24 06:00 Temperature 98.6 F Pulse Rate 84 Respiratory Rate 19 Blood Pressure 130/86 Pulse Oximetry 95 Oxygen Flow Rate 0 Oxygen Delivery Method Room Air Oxygen Flow Rate 0 Objective Labs 07/15/24 12:50 07/15/24 12:50 Labs: Laboratory Results - last 24 hr 07/15/24 07/15/24 07/15/24 12:31 12:50 18:45 WBC 18.2 H RBC 3.71 L Hgb 11.0 L Hct 33.0 L MCV 88.9 MCH 29.5 MCHC 33.2 RDW 16.9 H Plt Count 305 Neut % (Auto) 90.7 H Lymph % (Auto) 5.9 L [place] % (Auto) 2.4 L Eos % (Auto) 0.7 L Baso % (Auto) 0.3 Neut # (Auto) 67971 H Lymph # (Auto) 1100 [place] # (Auto) 400 Eos # (Auto) 100 Baso # (Auto) 100 PT 11.0 INR 1.0 APTT 35 Sodium 137 Potassium 5.0 Chloride 106 Carbon Dioxide 22 BUN 82 H Creatinine 1.84 H Estimated GFR 28 L BUN/Creatinine Ratio 44.6 H Glucose 107 H Lactate 0.8 Calcium 9.9 Total Bilirubin 0.6 AST 117 H ALT 125 H Alkaline Phosphatase 133 H Total Protein 7.9 Albumin 4.3 Globulin 3.6 Albumin/Globulin Ratio 1.2 Lipase 381 H Procalcitonin 0.302 Urine Color Yellow Urine Appearance Cloudy Urine pH 8.0 Ur Specific Dyer 1.015 Urine Protein 2+ H Urine Glucose (UA) Negative Urine Ketones Negative Urine Occult Blood 2+ H Urine Nitrate Negative Urine Bilirubin Negative Urine Urobilinogen 0.2 Ur Leukocyte Esterase 3+ H Urine RBC 1-5/hpf Urine WBC 10-30/hpf H Ur Squamous Epith Cells None seen Urine Bacteria Many (>30) H Ur Culture Indicated? Specimen cultured Vol Urine Centrifuged 10ml (spun) C. difficile Tox (PCR) Positive for c. diff H PFSH Medical History Primary osteoarthritis involving multiple joints Chronic anticoagulation Closed fracture of right distal femur C. difficile colitis DVT (deep venous thrombosis) Ulcer of right heel Decubitus ulcer of coccyx Myofascial pain Do not resuscitate Spinal cord stimulator status Allergic rhinitis Spondylolisthesis of cervical region History of colonic polyps Depression, major, recurrent Mixed hyperlipidemia Essential hypertension Occipital neuralgia Paraplegic spinal paralysis Surgical History Status post insertion of intrathecal pump Status of other artificial opening of urinary tract Hx laparoscopic cholecystectomy History of Key[place] fundoplication Hx of hernia repair Hx of cholecystectomy Hx of hysterectomy Hx of spinal fusion History of urostomy Family History Father Heart disease Mother Cancer Stroke Social History household members: significant other Smoking Status: Never smoker alcohol intake: current Assessment & Plan Time-Based Coding :: [TOTAL MINUTES] spent with patient and on the chart (including review of chart, obtaining history, exam, reviewing outside data, placing orders, documenting exam and treatment plan, and counseling patient) on [DATE]. Quality VTE Deep Vein Thrombosis/Pulmonary Embolism Present on Admission: No
[2024-07-16] MEDS: CHOLECALCIFEROL (VITAMIN D3) 1,000 UNIT TABLET 1000 UNIT PO (09:17)
[2024-07-16] MEDS: ASCORBIC ACID 500 MG TABLET PO (09:17)
[2024-07-16] MEDS: APIXABAN 5 MG TABLET PO ×2 (09:17→22:17)
[2024-07-16] MEDS: CYANOCOBALAMIN (VITAMIN B-12) 500 MCG TABLET 1000 MCG PO (09:17)
[2024-07-16] MEDS: carvediloL 3.125 MG TABLET 6.25 MG PO ×2 (09:17→22:18)
[2024-07-16] MEDS: AMLODIPINE 5 MG TABLET PO (09:17)
[2024-07-16] MEDS: LACTOBACILLUS ACIDOPHILUS TABLET 1 EACH PO ×3 (09:17→17:05)
[2024-07-16 10:00] LABS: Alanine Aminotransferase 67 IU/L (<35); Albumin 3.6 g/dL (3.5-5.0); Albumin Globulin Ratio 1.1 (1.0-2.8); Alkaline Phosphatase 87 U/L (38-126); Aspartate Aminotransferase 47 IU/L (14-36); BUN Creatinine Ratio 49.3 (6-22); Bilirubin Total 0.6 mg/dL (0.2-1.3); Blood Urea Nitrogen 68 mg/dL (7-17); Calcium 9.5 mg/dL (8.4-10.2); Carbon Dioxide 21 mmol/L (22-32); Chloride 104 mmol/L (98-107); Estimated Glomerular Filt Rate 39 mL/min (>60); Globulin 3.4 g/dL (1.7-4.1); Glucose 126 mg/dL (70-99); Potassium 5.1 mmol/L (3.4-5.1); Sodium 135 mmol/L (137-145)
[2024-07-16 10:01] LABS: HEMOLYSIS 104 (0-50)
[2024-07-16 10:06] LABS: Add Manual Diff / Slide Review NO; Basophils Absolute Auto 100 /uL (0-100); Basophils Percent Auto 0.5 % (0-2); Eosinophils Absolute Auto 200 /uL (0-450); Eosinophils Percent Auto 1.3 % (2-4); Hematocrit 31.3 % (36-46); Hemoglobin 10.3 g/dL (12.0-16.0); Lymphocytes Absolute Auto 1100 /uL (1100-4500); Lymphocytes Percent Auto 7.5 % (25-40); Mean Corpuscular HGB Conc 32.8 % (30-36); Mean Corpuscular Hemoglobin 29.5 PG (26-34); Mean Corpuscular Volume 89.9 fL (80-100); Monocytes Absolute Auto 500 /uL (0-900); Monocytes Percent Auto 3.3 % (3-14); Neutrophils Absolute Auto 12400 /uL (1500-7000); Neutrophils Percent Auto 87.4 % (50-75); Red Blood Cell Count 3.49 X10^6/uL (4.0-5.2); White Blood Cell Count 14.2 X10^3/uL (4.5-11.0)
--- NOTE | 2024-07-16 12:08 | DIET.CONS ---
Dietary Consultation Note Admission Date: 07/15/2024 14:04 Assessment: 78y F referred to nutrition for unhealing wounds. Pt seen by RD last hospitalization last month. Since that time, pts weight is up 3kg. Pt states has been eating better and consuming ONS. 3 meals daily[facility]. Pt continues to have taste changes impacting PO intake Ht: 152.4 cm Wt: 50.802 kg (+3kg in 1mo) BMI: 21.9 Last BM: 07/16/24 (07/16/24 02:00) MNA: 9 Andreas Score: 16 Diet: 07/15/24 12:27 NPO Diet Diet Modifications: NPO Type: NPO except for Meds 07/15/24 Dinner General (Regular) Diet Diet Modifications: General (Regular) Diet Diet Modifications: Food Texture: Level 7 - Regular Liquid Consistency: Level 0 - Thin Nutrition Percent Meal Consumed 0% 07/15/24 19:30 Labs: RBC 3.49 X10^6/uL (4.0-5.2) L 07/16/24 09:20 Hgb 10.3 g/dL (12.0-16.0) L 07/16/24 09:20 Hct 31.3 % (36-46) L 07/16/24 09:20 Creatinine 1.38 mg/dL (0.52-1.04) H 07/16/24 09:20 Lactate 0.8 mmol/L (0.7-2.1) 07/15/24 12:50 Nutrition Diagnosis: none Interventions: 1. Pt benefitting from increased appetite and ONS consumption. Recc continuing ONS Ensure bid while hospitalized and upon d/c. Electronically Signed by: Gemma Topete 07/16/24 12:08 Clinical [address] [address]
[2024-07-16] MEDS: CALCIUM CARBONATE 500 MG TAB 200 MG PO ×2 (12:59→22:17)
--- NOTE | 2024-07-16 14:57 | CM.DANOTE ---
B DCP Assessment Note pt is a 78yo F admitted with UTI/fevers/sepsis. PMH of paraplegia, intrathecal pain pump, DVT on Eliquis, hypertension, decubitus ulcer with osteomyelitis and wound VAC, urostomy, dyslipidemia, prior C diff. PCP [facility] Payer Medicare and [facility] for life DOG TRACK KENNEL MANAGER reviewed EMR. Per RN, has left a few messages with wound care clinic/spoke with their team. aware of wound care orders. pt mentation much better today. per provider in morning rounds, pt has OP appt in [place] Tue for pain pump. DOG TRACK KENNEL MANAGER informed provider for ins to cover OP appts, would need to leave . provider unsure if she would be ready to dc Tuesday. per Kassandra at [facility], can accept pt back. Jo kindly agreed to send initial clinicals. Order/f2f needed. DOG TRACK KENNEL MANAGER attempted to meet with pt x2, either with other medical staff or getting bed bath. pt here over a month ago, per previous CM assessment 06/07/24, pt lives in [place] with her Life Partner Edith in a newly remodeled home that is w/c accessible and ADA compliant as pt's partner Edith is also disabled and has her own LTC insurance and own caregivers to assist. Pt is independent with ADLs and self transfers and was driving until recently and now her brother is currently providing transport when needed. Pt states she is open with [facility] for RN for wound care as she has been dealing with her sacral ulcer for a few months and has home [employer] wound vac at home...Pt very knowledgeable and independent and states she feels she would have much better care returning home with [facility] than SNF.. P: anticipate return home with partner/CG/Maryann when medically stable (? 07/17?). will continue to follow closely for DCP coordination GENIE Walker Discharge Planning/Care Management CM Discharge Assessment Start: 07/15/24 14:25 Freq: Status: Active Protocol: Document 07/16/24 14:55 (Rec: 07/16/24 14:57 [id number]) Discharge Planning Assessment Assigned Engineering Technology Instructor GENIE Soto DPOA/Assigned Designee Name margareth Sharma partner Contact Information [phone] Advance Directives? Yes; AD & POLST Advance Directives on File Yes History Provided By Family Member,Medical Record Household Members significant other Comment family assists with transporting Needs Assistance With Bathing Community Services used prior to Home Health Nurse admission: Comment [facility] DME Already Rented / Owned Bath Bench,Hospital Bed, Wheelchair Patient/Family Preference Home with Home Health Discharge Plan Home with Home Health Referrals Initiated Home Health Additional Comment Resume vs new Maryann [facility] orders Whiteboard Updated in Patient Room with No name and ext. # of Engineering Technology Instructor Review Status In Process Please Provide Date Initial DC 07/16/24 Assessment Was Performed Next Review Type Continued Stay Review
[2024-07-16] MEDS: cefTRIAXone 2,000 MG in SODIUM CHLORIDE 0.9% 100 ML 200 MG IV (15:49)
--- NOTE | 2024-07-16 16:09 | P.CONS_ITS ---
History of Present Illness Consult details Date Patient Seen: 07/16/24 Time Patient Seen: 15:45 Chief complaint: fever/confused/paraplegia Narrative: The patient is a 78-year-old female with T12 paraplegia, stage IV sacral decubitus ulcer, and chronic kidney disease who was admitted to the hospital yesterday for evaluation and treatment of fever, altered mental status, and leukocytosis. The patient was previously seen at the wound center but was unable to returned for follow up because of transportation difficulties. She is currently receiving negative pressure wound therapy under the care of a mobile wound care service. She reports that the ulcer has been steadily improving. She previously had evidence for osteomyelitis but according to the patient all signs of infection have resolved. On admission she was also noted to have stage I pressure injuries on her heels. The patient reports a good appetite and denies having any other recent changes in her overall health. She remains on chronic anticoagulation. Meds Home Medications and Allergies Home Medications Medication Instructions Recorded Confirmed Type implant pain stimulator T8 1 unit intraductal CONT 03/31/21 07/15/24 History morphine 3.26 mg intrathecal CONT Pain 03/31/21 07/15/24 History cholecalciferol (vitamin D3) 25 25 mcg PO DAILY 05/30/23 07/15/24 History mcg (1,000 unit) capsule tretinoin 0.025 % topical cream See Rx Instructions .Route 12/05/23 07/15/24 Rx .COMPLEX #90 grams ascorbic acid (vitamin C) 500 mg 500 mg PO DAILY 12/09/23 07/15/24 History capsule calcium carbonate (Antacid 200 mg PO BID 12/09/23 07/15/24 History (calcium carbonate)) cyanocobalamin (vitamin B-12) 1,000 mcg PO DAILY 12/09/23 07/15/24 History 1,000 mcg capsule melatonin 1 mg tablet 1 mg PO BEDTIME PRN Sleep 12/09/23 07/15/24 History apixaban 5 mg tablet 5 mg PO BID #180 tabs 12/21/23 07/15/24 Rx diclofenac sodium 3 % topical gel 1 applic topical BID #100 grams 05/15/24 07/15/24 Rx Lactobacillus acidophilus 25 25,000,000 cell PO TIDWM #90 caps 06/08/24 07/15/24 Rx million cell capsule amlodipine 5 mg tablet 5 mg PO DAILY 06/21/24 07/15/24 History carvedilol 6.25 mg tablet 6.25 mg PO BID 06/21/24 07/15/24 History Allergies Allergy/AdvReac Type Severity Reaction Status Date / Time adhesive tape Allergy Severe removed Verified 07/15/24 12:29 skin (allergy to athletic tape only) sulfamethoxazole Allergy Intermediate HIVES/Rash Verified 07/15/24 12:29 [From BACTRIM] trimethoprim [From BACTRIM] Allergy Intermediate HIVES/Rash Verified 07/15/24 12:29 duloxetine [From CYMBALTA] AdvReac Intermediate STUTTERING, Verified 07/15/24 12:29 SLEEPING ISSUES gabapentin [GABAPENTIN] AdvReac Unknown BECAME Verified 07/15/24 12:29 RECLUSIVE Review of Systems Constitutional Comments: The patient reports recent fever and altered mental status but otherwise has not had any other changes in her overall health Cardiovascular Comments: No chest pain Respiratory Comments: No coughing wheezing or shortness of breath Exam Vital Signs (past 8 hours): - 07/16/24 09:17 07/16/24 12:00 Temperature 97.2 F L Pulse Rate 106 H 95 H Respiratory Rate 18 Blood Pressure 154/80 H 158/80 H Pulse Oximetry 95 Oxygen Delivery Method Room Air Oxygen Flow Rate 0 Narrative Exam Narrative: Well-developed well-nourished female who is alert and oriented and in no apparent distress Neuro Other: Paraplegia Objective Labs 07/16/24 09:20 07/16/24 09:20 Labs: Laboratory Results - last 24 hr 07/15/24 07/16/24 18:45 09:20 WBC 14.2 H RBC 3.49 L Hgb 10.3 L Hct 31.3 L MCV 89.9 MCH 29.5 MCHC 32.8 RDW 17.0 H Plt Count TNP Neut % (Auto) 87.4 H Lymph % (Auto) 7.5 L [place] % (Auto) 3.3 Eos % (Auto) 1.3 L Baso % (Auto) 0.5 Neut # (Auto) 94267 H Lymph # (Auto) 1100 [place] # (Auto) 500 Eos # (Auto) 200 Baso # (Auto) 100 Sodium 135 L Potassium 5.1 Chloride 104 Carbon Dioxide 21 L BUN 68 H Creatinine 1.38 H Estimated GFR 39 L BUN/Creatinine Ratio 49.3 H Glucose 126 H Calcium 9.5 Total Bilirubin 0.6 AST 47 H ALT 67 H Alkaline Phosphatase 87 Total Protein 7.0 Albumin 3.6 Globulin 3.4 Albumin/Globulin Ratio 1.1 C. difficile Tox (PCR) Positive for c. diff H [facility] Medical History Primary osteoarthritis involving multiple joints Chronic anticoagulation Closed fracture of right distal femur C. difficile colitis DVT (deep venous thrombosis) Ulcer of right heel Decubitus ulcer of coccyx Myofascial pain Do not resuscitate Spinal cord stimulator status Allergic rhinitis Spondylolisthesis of cervical region History of colonic polyps Depression, major, recurrent Mixed hyperlipidemia Essential hypertension Occipital neuralgia Paraplegic spinal paralysis Surgical History Status post insertion of intrathecal pump Status of other artificial opening of urinary tract Hx laparoscopic cholecystectomy History of [place] fundoplication Hx of hernia repair Hx of cholecystectomy Hx of hysterectomy Hx of spinal fusion History of urostomy Family History Father Heart disease Mother Cancer Stroke Social History household members: significant other Tobacco & Substance Use Smoking Status: Never smoker alcohol intake: current Assessment & Plan Assessment and plan (1) Pressure ulcer of sacral region, stage 4: Status: Acute (2) Pressure ulcer of unspecified heel, stage 1: Status: Acute Assessment & Plan narrative: Stage IV sacral decubitus ulcer that has been improving with negative pressure wound therapy. Recommend continuing negative pressure wound therapy, pressure offloading, and protein supplementation. Follow up with mobile wound care service upon discharge. Can contact our wound care nurses if any difficulties arise with the wound VAC. Use heel protectors for both heels. Time-Based Coding :: [35 MINUTES] spent with patient and on the chart (including review of chart, obtaining history, exam, reviewing outside data, placing orders, documenting exam and treatment plan, and counseling patient) on [07/16/24].
--- NOTE | 2024-07-16 19:00 | PC.NURSE ---
Day Shift Note Patient's urostomy appliance changed per patient with visual observation by this RN. Wound vac changed at bedside by MARYAN Kee and this RN. Wound vac running at 125mmHg, no leaks or other alarms.
[2024-07-16] MEDS: SODIUM CHLORIDE 0.9% FLUSH 10 ML IV (22:18)
--- NOTE | 2024-07-17 02:51 | PC.NURSE ---
Pt had a form stool tonight.
--- NOTE | 2024-07-17 08:04 | P.PN_ITS ---
Subjective Subjective Date Patient Seen: 07/17/24 Interval history: Chief complaint: Fever encephalopathy confusion secondary to recurrent UTI with urostomy History of present illness: 78-year-old female history of paraplegia, intrathecal pain pump, DVT on Eliquis, hypertension, decubitus ulcer with osteomyelitis and wound VAC, urostomy, dyslipidemia, prior C diff colitis presents with complaint of confusion and fever. Patient also has a wound on her right foot currently. Patient was admitted 06/05/2024 through 06/08/2024 for toxic encephalopathy with pyuria bacteria and recent C diff infection. Patient returns with complaint of rigors, confusion that started overnight. States urostomy has been draining they have not appreciate any changes to the fluid. She has a known wound on the right hip/sacral area but no new drainage. She has a right lower extremity wound and DVT they have not noticed any changes in states the wound has been healing. Patient is currently on Dificid for C diff. Patient has had renal mass or change noted on imaging in May that they are watching with primary care outpatient MR has been ordered. Findings in the emergency department: Patient is able to converse in but has difficulty with answers. Patient's partner at bedside augments history she has a son and a family friend at bedside as well. Urinalysis is from urostomy which is of limited reliability 10-30 white blood cells per high-power field 3+ leukocyte esterase and 3+ bacteria White blood cell count 8.2 hemoglobin 11 91% neutrophils Sodium 137 potassium 5 BUN 82 creatinine 1.8 lipase 381 Patient started admitted on sepsis protocol Hospital course: 07/16: No sweats or chills overnight no nausea or vomiting patient cogent today informed me that she has an appointment to fill her intrathecal pain pump in [place] at noon on Tuesday the 18 of July. Hopefully she will be fit to travel by that morning she will have to leave early 07/17: Urine culture demonstrates Pseudomonas with sensitivities below and Klebsiella with sensitivities pending antibiotics changed to ciprofloxacin Urine Culture Preliminary 07/17/24-723 Organism 1 Gram negative bacilli [place] Count >100,000 CFU/ml Action to follow Identification and Sensitivity to Follow Organism 2 Pseudomonas aeruginosa [place] Count >100,000 CFU/ml Action to follow No Further Workup 2. Pseudomonas aeruginosa M.I.C. RX --------- --- * Cefepime 2 S * Ciprofloxacin 0.25 S * Levofloxacin 1 S * Meropenem 8 R * Piperacillin/Tazobactam 8 S Review of systems: No night sweats or chills No difficulty swallowing No chest pains or palpitations No cough or shortness a breath No abdominal pain nausea vomiting Physical exam: Alert and less confused elderly female very pleasant HEENT unremarkable except dry oropharynx Neck no carotid bruits Heart rate and rhythm regular Lungs diminished breath sounds but no rales Abdomen nondistended bowel sounds present Extremities with muscle wasting from paralysis There is an unstageable sacral ulcer And stage I pressure injuries to both heels Assessment and plan: Sepsis likely source urinary tract infection from urostomy once again as evidenced by fever leukocytosis toxic encephalopathy acute kidney injury * Urine and blood cultures * IV ceftriaxone 1 g q.12 * Vigorous fluid resuscitation Sacral decubitus ulcer * Continue wound VAC * Does not appear to be source of infection Recurrent Clostridium difficile colitis * Reportedly has completed course of Dificid since admission 1 month ago Renal mass seen on CT 06/06/2024 * Follow-up imaging as outpatient Intrathecal pain pump due for refill TuesdayJuly 18 at noon in [place] * Hopefully will be fit for travel by Tuesday around 6:00 a.m. make this appointment DVT * Covered with anticoagulation Time-Based Coding :: 35 minutes spent with patient and on the chart (including review of chart, obtaining history, exam, reviewing outside data, placing orders, documenting exam and treatment plan, and counseling patient) . Exam Vital Signs (past 8 hours): Oxygen Delivery Method Room Air Oxygen Flow Rate 0 Objective Labs 07/16/24 09:20 07/16/24 09:20 Labs: Laboratory Results - last 24 hr 07/16/24 09:20 WBC 14.2 H RBC 3.49 L Hgb 10.3 L Hct 31.3 L MCV 89.9 MCH 29.5 MCHC 32.8 RDW 17.0 H Plt Count TNP Neut % (Auto) 87.4 H Lymph % (Auto) 7.5 L [place] % (Auto) 3.3 Eos % (Auto) 1.3 L Baso % (Auto) 0.5 Neut # (Auto) 37167 H Lymph # (Auto) 1100 [place] # (Auto) 500 Eos # (Auto) 200 Baso # (Auto) 100 Sodium 135 L Potassium 5.1 Chloride 104 Carbon Dioxide 21 L BUN 68 H Creatinine 1.38 H Estimated GFR 39 L BUN/Creatinine Ratio 49.3 H Glucose 126 H Calcium 9.5 Total Bilirubin 0.6 AST 47 H ALT 67 H Alkaline Phosphatase 87 Total Protein 7.0 Albumin 3.6 Globulin 3.4 Albumin/Globulin Ratio 1.1 PFSH Medical History Primary osteoarthritis involving multiple joints Chronic anticoagulation Closed fracture of right distal femur C. difficile colitis DVT (deep venous thrombosis) Ulcer of right heel Decubitus ulcer of coccyx Myofascial pain Do not resuscitate Spinal cord stimulator status Allergic rhinitis Spondylolisthesis of cervical region History of colonic polyps Depression, major, recurrent Mixed hyperlipidemia Essential hypertension Occipital neuralgia Paraplegic spinal paralysis Surgical History Status post insertion of intrathecal pump Status of other artificial opening of urinary tract Hx laparoscopic cholecystectomy History of [place] fundoplication Hx of hernia repair Hx of cholecystectomy Hx of hysterectomy Hx of spinal fusion History of urostomy Family History Father Heart disease Mother Cancer Stroke Social History household members: significant other Smoking Status: Never smoker alcohol intake: current Quality VTE Deep Vein Thrombosis/Pulmonary Embolism Present on Admission: No
[2024-07-17] MEDS: APIXABAN 5 MG TABLET PO ×2 (08:17→20:18)
[2024-07-17] MEDS: LACTOBACILLUS ACIDOPHILUS TABLET 1 EACH PO ×3 (08:17→18:11)
[2024-07-17] MEDS: AMLODIPINE 5 MG TABLET PO (08:17)
[2024-07-17] MEDS: CALCIUM CARBONATE 500 MG TAB 200 MG PO ×2 (08:18→20:26)
[2024-07-17] MEDS: ASCORBIC ACID 500 MG TABLET PO (08:18)
[2024-07-17 08:19] VITALS: BP 129/65; PULSE 92
[2024-07-17] MEDS: carvediloL 3.125 MG TABLET 6.25 MG PO ×2 (08:19→20:18)
[2024-07-17] MEDS: CHOLECALCIFEROL (VITAMIN D3) 1,000 UNIT TABLET 1000 UNIT PO (08:20)
[2024-07-17] MEDS: CYANOCOBALAMIN (VITAMIN B-12) 500 MCG TABLET 1000 MCG PO (08:20)
[2024-07-17 08:54] LABS: Add Manual Diff / Slide Review NO; Basophils Absolute Auto 100 /uL (0-100); Basophils Percent Auto 0.8 % (0-2); Eosinophils Absolute Auto 200 /uL (0-450); Eosinophils Percent Auto 3.9 % (2-4); Hematocrit 29.7 % (36-46); Hemoglobin 9.8 g/dL (12.0-16.0); Lymphocytes Absolute Auto 1000 /uL (1100-4500); Mean Corpuscular HGB Conc 33.1 % (30-36); Mean Corpuscular Hemoglobin 29.6 PG (26-34); Mean Corpuscular Volume 89.7 fL (80-100); Monocytes Absolute Auto 400 /uL (0-900); Monocytes Percent Auto 6.7 % (3-14); Neutrophils Absolute Auto 4600 /uL (1500-7000); Neutrophils Percent Auto 72.6 % (50-75); Platelet Count 261 X10^3/uL (150-400); Red Blood Cell Count 3.31 X10^6/uL (4.0-5.2); Red Cell Distribution Width 16.7 % (11.6-14.8); White Blood Cell Count 6.4 X10^3/uL (4.5-11.0)
[2024-07-17] MEDS: CIPROFLOXACIN 400 MG/200 ML PIGGYBACK 200 MG IV (10:10)
[2024-07-17] MEDS: SODIUM CHLORIDE 0.9% FLUSH 10 ML IV ×2 (10:15→20:25)
[2024-07-17 13:00] VITALS: BP 147/66; PULSE 70; RESP 18; TEMP 36.3; O2SAT 97
[2024-07-17 13:41] LABS: C difficie Toxins A and B, EIA Positive (Negative)
--- NOTE | 2024-07-17 14:32 | CM.DPNOTE ---
DCP note [facility] reviewed EMR [facility] met with pt in room. reports changed OP appt to next week to refill pain infusion pump. reports having CGs with [facility] ([facility]) as well as RN from [facility] for wound care. has partner support at home. brother is staying with them as well. denies any additional CM/DCP needs at this time. has a ride home at dc. [facility] spoke with Shayy from [facility] . confirms can continue to follow pt. need f2f/order/dc sum. only have RN for wound care. [facility] completed f2f and HH order. P: anticipate home with PP CGs/partner/[facility] to follow for wound care. OP f/u rec. CM team will continue to follow as needed for DCP coordination GENIE Walker
[2024-07-17 18:00] VITALS: BP 156/75; PULSE 91; RESP 18; TEMP 36.3; O2SAT 97
[2024-07-17 18:34] LABS: Alanine Aminotransferase 41 IU/L (<35); Albumin 3.7 g/dL (3.5-5.0); Albumin Globulin Ratio 1.1 (1.0-2.8); Alkaline Phosphatase 89 U/L (38-126); Aspartate Aminotransferase 19 IU/L (14-36); BUN Creatinine Ratio 37.9 (6-22); Bilirubin Total 0.3 mg/dL (0.2-1.3); Blood Urea Nitrogen 61 mg/dL (7-17); Calcium 9.5 mg/dL (8.4-10.2); Carbon Dioxide 22 mmol/L (22-32); Chloride 103 mmol/L (98-107); Estimated Glomerular Filt Rate 33 mL/min (>60); Globulin 3.4 g/dL (1.7-4.1); Glucose 94 mg/dL (70-99); HEMOLYSIS < 15 (0-50); Potassium 4.1 mmol/L (3.4-5.1); Sodium 137 mmol/L (137-145); Total Protein 7.1 g/dL (6.3-8.2)
[2024-07-17 19:59] VITALS: BP 146/70; PULSE 92; RESP 16; TEMP 36.4; O2SAT 98
[2024-07-17] MEDS: ACETAMINOPHEN 325 MG TABLET 650 MG PO (20:18)
[2024-07-18 00:36] VITALS: BP 147/68; PULSE 79; RESP 16; TEMP 36; O2SAT 98
[2024-07-18 07:00] VITALS: O2SAT 96
[2024-07-18 08:00] VITALS: BP 136/79; PULSE 84; RESP 16; TEMP 36.2; O2SAT 100
[2024-07-18] MEDS: LACTOBACILLUS ACIDOPHILUS TABLET 1 EACH PO ×2 (08:14→12:24)
[2024-07-18] MEDS: ASCORBIC ACID 500 MG TABLET PO (08:14)
[2024-07-18] MEDS: CHOLECALCIFEROL (VITAMIN D3) 1,000 UNIT TABLET 1000 UNIT PO (08:14)
[2024-07-18] MEDS: CYANOCOBALAMIN (VITAMIN B-12) 500 MCG TABLET 1000 MCG PO (08:14)
[2024-07-18] MEDS: APIXABAN 5 MG TABLET PO (08:14)
[2024-07-18] MEDS: CALCIUM CARBONATE 500 MG TAB 200 MG PO (08:14)
[2024-07-18 08:15] VITALS: BP 136/79; PULSE 84
[2024-07-18] MEDS: carvediloL 3.125 MG TABLET 6.25 MG PO (08:15)
[2024-07-18] MEDS: AMLODIPINE 5 MG TABLET PO (08:15)
[2024-07-18] MEDS: CIPROFLOXACIN 400 MG/200 ML PIGGYBACK 200 MG IV (08:16)
[2024-07-18] MEDS: SODIUM CHLORIDE 0.9% FLUSH 10 ML IV (08:17)
[2024-07-18 08:27] LABS: Add Manual Diff / Slide Review NO; Basophils Absolute Auto 0 /uL (0-100); Basophils Percent Auto 0.8 % (0-2); Eosinophils Absolute Auto 300 /uL (0-450); Eosinophils Percent Auto 4.7 % (2-4); Hematocrit 29.4 % (36-46); Hemoglobin 9.7 g/dL (12.0-16.0); Lymphocytes Absolute Auto 1200 /uL (1100-4500); Mean Corpuscular Hemoglobin 29.7 PG (26-34); Mean Corpuscular Volume 89.8 fL (80-100); Monocytes Absolute Auto 600 /uL (0-900); Monocytes Percent Auto 10.6 % (3-14); Neutrophils Absolute Auto 3500 /uL (1500-7000); Neutrophils Percent Auto 61.9 % (50-75); Platelet Count 276 X10^3/uL (150-400); Red Blood Cell Count 3.27 X10^6/uL (4.0-5.2); Red Cell Distribution Width 16.2 % (11.6-14.8); White Blood Cell Count 5.6 X10^3/uL (4.5-11.0)
--- NOTE | 2024-07-18 08:45 | PM.DS.1 ---
History of Present Illness History of Present Illness Chief complaint: fever/confused/paraplegia Narrative: From H&P: History of present illness: 78-year-old female history of paraplegia, intrathecal pain pump, DVT on Eliquis, hypertension, decubitus ulcer with osteomyelitis and wound VAC, urostomy, dyslipidemia, prior C diff colitis presents with complaint of confusion and fever. Patient also has a wound on her right foot currently. Patient was admitted 06/05/2024 through 06/08/2024 for toxic encephalopathy with pyuria bacteria and recent C diff infection. Patient returns with complaint of rigors, confusion that started overnight. States urostomy has been draining they have not appreciate any changes to the fluid. She has a known wound on the right hip/sacral area but no new drainage. She has a right lower extremity wound and DVT they have not noticed any changes in states the wound has been healing. Patient is currently on Dificid for C diff. Patient has had renal mass or change noted on imaging in May that they are watching with primary care outpatient MR has been ordered. Findings in the emergency department: Patient is able to converse in but has difficulty with answers. Patient's partner at bedside augments history she has a son and a family friend at bedside as well. Urinalysis is from urostomy which is of limited reliability 10-30 white blood cells per high-power field 3+ leukocyte esterase and 3+ bacteria White blood cell count 8.2 hemoglobin 11 91% neutrophils Sodium 137 potassium 5 BUN 82 creatinine 1.8 lipase 381 Patient started admitted on sepsis protocol Discharge Providers Provider Date of admission: 07/15/24 14:04 Discharge Date: 07/18/24 Primary care physician: Joel Blunt MD Consults: 07/15/24 16:15 Consult to Dietitian, Adult Routine Comment: Reason For Exam: prolonged wound healing 07/15/24 18:33 Consult to Wound Care Routine Comment: Consulting Provider: [facility] 07/17/24 14:43 Consult to Home Health Routine Comment: Reason For Exam: resume previous pediatric critical care nurse Discharge provider: Aramis Keith MD Summary Hospital Course Discharge Diagnosis: Sepsis likely source urinary tract infection from urostomy once again as evidenced by fever, leukocytosis, septic encephalopathy, and acute kidney injury. All present on admission and improved. Sacral decubitus ulcer, stable. H/O Clostridium difficile colitis, no current diarrhea, stable. Reportedly has completed course of Dificid since admission 1 month ago Renal mass seen on CT 06/06/2024, stable. Follow-up imaging as outpatient Intrathecal pain pump due for refill TuesdayJuly 18 at noon in [place], stable. Hospital Course: Hospital course: 07/16: No sweats or chills overnight no nausea or vomiting patient cogent today informed me that she has an appointment to fill her intrathecal pain pump in [place] at noon on Tuesday the 18 of July. Hopefully she will be fit to travel by that morning she will have to leave early 07/17: Urine culture demonstrates Pseudomonas with sensitivities below and Klebsiella with sensitivities pending antibiotics changed to ciprofloxacin Urine Culture Preliminary 07/17/24 Organism 1 Gram negative bacilli [place] Count >100,000 CFU/ml Action to follow Identification and Sensitivity to Follow Organism 2 Pseudomonas aeruginosa [place] Count >100,000 CFU/ml Action to follow No Further Workup 2. Pseudomonas aeruginosa M.I.C. RX --------- --- * Cefepime 2 S * Ciprofloxacin 0.25 S * Levofloxacin 1 S * Meropenem 8 R * Piperacillin/Tazobactam 8 S 07/18: stable for discharge, she feels well enough to discharge home on PO antibiotics. Status at Discharge Cognitive/behavioral status at discharge: oriented Functional status at discharge: uses cane/walker Overall status at discharge: patient is back to baseline Time Spent with Patient Time spent: Greater than 30 minutes Exam Vital Signs (past 8 hours): - 07/18/24 08:00 07/18/24 08:15 Temperature 97.2 F L Pulse Rate 84 84 Respiratory Rate 16 Blood Pressure 136/79 136/79 Pulse Oximetry 100 Oxygen Flow Rate 0 Oxygen Delivery Method Room Air Oxygen Flow Rate 0 Narrative Exam Narrative: NAD, alert and oriented. Fluent speech. Chronically ill in appearance. Lungs are clear, normal rate and effort. Heart is regular, no murmur gallop or rub. Abdomen is soft, non distended. Extremities are free of edema. Objective ECG Impression: Intervals [place] Rate: 119 P: 53 SC: 150 QRS: 18 QRSD: 80 T: 56 QT: 320 QTc: 450 Interpretive Statements Sinus tachycardia Imaging Chest x-ray: Radiologist's impression: No acute cardiopulmonary abnormality is seen. Labs 07/18/24 08:20 07/17/24 18:10 Labs: Laboratory Results - last 24 hr 07/15/24 07/17/24 07/17/24 18:45 08:36 18:10 WBC 6.4 D RBC 3.31 L Hgb 9.8 L Hct 29.7 L MCV 89.7 MCH 29.6 MCHC 33.1 RDW 16.7 H Plt Count 261 Neut % (Auto) 72.6 Lymph % (Auto) 16.0 L [place] % (Auto) 6.7 Eos % (Auto) 3.9 Baso % (Auto) 0.8 Neut # (Auto) 4600 Lymph # (Auto) 1000 L [place] # (Auto) 400 Eos # (Auto) 200 Baso # (Auto) 100 Sodium 137 Potassium 4.1 Chloride 103 Carbon Dioxide 22 BUN 61 H Creatinine 1.61 H Estimated GFR 33 L BUN/Creatinine Ratio 37.9 H Glucose 94 Calcium 9.5 Total Bilirubin 0.3 AST 19 ALT 41 H Alkaline Phosphatase 89 Total Protein 7.1 Albumin 3.7 Globulin 3.4 Albumin/Globulin Ratio 1.1 C. diff Toxin A&B (EIA) Positive A 07/18/24 08:20 WBC 5.6 RBC 3.27 L Hgb 9.7 L Hct 29.4 L MCV 89.8 MCH 29.7 MCHC 33.0 RDW 16.2 H Plt Count 276 Neut % (Auto) 61.9 Lymph % (Auto) 22.0 L [place] % (Auto) 10.6 Eos % (Auto) 4.7 H Baso % (Auto) 0.8 Neut # (Auto) 3500 Lymph # (Auto) 1200 [place] # (Auto) 600 Eos # (Auto) 300 Baso # (Auto) 0 Sodium Potassium Chloride Carbon Dioxide BUN Creatinine Estimated GFR BUN/Creatinine Ratio Glucose Calcium Total Bilirubin AST ALT Alkaline Phosphatase Total Protein Albumin Globulin Albumin/Globulin Ratio C. diff Toxin A&B (EIA) [facility] Medical History Primary osteoarthritis involving multiple joints Chronic anticoagulation Closed fracture of right distal femur C. difficile colitis DVT (deep venous thrombosis) Ulcer of right heel Decubitus ulcer of coccyx Myofascial pain Do not resuscitate Spinal cord stimulator status Allergic rhinitis Spondylolisthesis of cervical region History of colonic polyps Depression, major, recurrent Mixed hyperlipidemia Essential hypertension Occipital neuralgia Paraplegic spinal paralysis Surgical History Status post insertion of intrathecal pump Status of other artificial opening of urinary tract Hx laparoscopic cholecystectomy History of [place] fundoplication Hx of hernia repair Hx of cholecystectomy Hx of hysterectomy Hx of spinal fusion History of urostomy Family History Father Heart disease Mother Cancer Stroke Social History household members: significant other Smoking Status: Never smoker alcohol intake: current Discharge Assessment & Plan Assessment and Plan Assessment: Sepsis likely source urinary tract infection from urostomy once again as evidenced by fever, leukocytosis, septic encephalopathy, and acute kidney injury. All present on admission and improved. Plan of Treatment: Discharge home with PO antibiotics. She will have close follow up with PCP and get her pump refilled. Discharge Plan Discharge Plan Patient Disposition: Home Provider Discharge Comment: Stable for discharge home. She will be on an additional 5 days of Cipro and have close follow up with PCP. Discharge orders & Medications Prescriptions: New ciprofloxacin HCl [Cipro] 500 mg tablet 500 mg PO BID Qty: 10 0RF oxycodone 5 mg capsule 5 mg PO Q8H PRN (Reason: pain) Qty: 14 0RF Continued tretinoin 0.025 % cream See Rx Instructions .ROUTE .COMPLEX Qty: 90 3RF Dose Instruction: APPLY 1 APPLICATION TO AFFECTED AREA IN THE EVENING TO FACE ONCE DAILY EXTERNALLY Rx Instructions: APPLY 1 APPLICATION TO AFFECTED AREA IN THE EVENING TO FACE ONCE DAILY EXTERNALLY ascorbic acid (vitamin C) 500 mg capsule 500 mg PO DAILY calcium carbonate [Antacid (calcium carbonate)] 200 mg calcium (500 mg) tablet,chewable 200 mg PO BID cyanocobalamin (vitamin B-12) 1,000 mcg capsule 1,000 mcg PO DAILY melatonin 1 mg tablet 1 mg PO BEDTIME PRN (Reason: Sleep) diclofenac sodium 3 % gel 1 applic topical BID Qty: 100 3RF apixaban 5 mg tablet 5 mg PO BID Qty: 180 1RF morphine auto-injector 3.26 mg intrathecal CONT Rx Instructions: Apomorphine 10mg/mL. Morphine 12mg/mL @3.26mg/day implant pain stimulator T8 1 unit intraductal CONT cholecalciferol (vitamin D3) 25 mcg (1,000 unit) capsule 25 mcg PO DAILY amlodipine 5 mg tablet 5 mg PO DAILY carvedilol 6.25 mg tablet 6.25 mg PO BID Rx Instructions: must administer with a meal/food Lactobacillus acidophilus 25 million cell Capsule 25,000,000 cell PO TIDWM Qty: 90 0RF Follow up/Referrals: Joel Blunt MD [Primary Care Provider] - Discharge Health Status Multidrug resistant organism: No MDRO Diet/Activity/Treatments Diet: Regular Skin/Wound/Dressing Care Report to your healthcare provider any signs of infection, such as:: chills, fever, increased pain and unusual drainage Visit Report/Discharge Packet Instructions: DI for Urinary Tract Infection (UTI) Stand Alone Forms: Patient Portal/API Discharge Data Primary Care Provider: Joel Blunt V Quality VTE Deep Vein Thrombosis/Pulmonary Embolism Present on Admission: No
--- NOTE | 2024-07-18 11:53 | CM.DPNOTE ---
DCP note [employer]NAGER reviewed EMR. per provider in morning rounds, cleared to dc home with [facility] today. DIGITAL MARKETING MANAGER met with pt in room. confirms preferece[facility] and CG support. denies other CM/DCP needs or questions at this time. CC Jo faxed f2f/order/dc sum to [facility] for resumption of care. [facility] previously reported able to accept pt back for services with new orders. DIGITAL MARKETING MANAGER messaged TCM with updates (PCP Jose Raul) P: [facility] today [facility]. no further CM needs identified at this time. CM team will continue to follow as needed GENIE Walker
== END 2024-07-18 12:59 | disposition home health service (06) | DRG 698 ==
LOC: ED 13:29 → AC 14:04
PROVIDERS: Admitting Provider Internal Medicine; Emergency Provider Emergency Medicine; Family Provider Internal Medicine; PCP Internal Medicine; Referring Provider Emergency Medicine; Visit Provider Internal Medicine
DX: T83.518A Infection and inflammatory reaction due to other urinary catheter, initial encounter (principal); A41.9 Sepsis, unspecified organism; L89.154 Pressure ulcer of sacral region, stage 4; R65.20 Severe sepsis without septic shock; G93.41 Metabolic encephalopathy; N39.0 Urinary tract infection, site not specified; N17.9 Acute kidney failure, unspecified; G82.20 Paraplegia, unspecified; I82.401 Acute embolism and thrombosis of unspecified deep veins of right lower extremity; Z16.39 Resistance to other specified antimicrobial drug; N28.89 Other specified disorders of kidney and ureter; L89.621 Pressure ulcer of left heel, stage 1; L89.611 Pressure ulcer of right heel, stage 1; B96.5 Pseudomonas (aeruginosa) (mallei) (pseudomallei) as the cause of diseases classified elsewhere; B96.1 Klebsiella pneumoniae [K. pneumoniae] as the cause of diseases classified elsewhere; Y73.1 Therapeutic (nonsurgical) and rehabilitative gastroenterology and urology devices associated with adverse incidents; I10 Essential (primary) hypertension; Z96.82 Presence of neurostimulator; Z86.19 Personal history of other infectious and parasitic diseases; Z79.01 Long term (current) use of anticoagulants
CPT/HCPCS: 36415; 71045; 80053; 81001; 83605; 83690; 84145; 85025; 85610; 85730; 87040; 87077; 87086; 87186; 87324; 87493; 93005; 96361; 96365; 96375; 99232; 99284; 99285; J0696; J0744; J2405

== ENCOUNTER → 2024-08-15 10:57 | Outpatient (CLI) | payer MEDICARE, OTHER, SELFPAY ==
[2024-07-15 15:10] VITALS: BMI 21.9
--- NOTE | 2024-08-15 10:59 | DI.CT.S_ITS ---
PROCEDURE: CT ABDOMEN RENAL PROTOCOL INDICATIONS: renal mass TECHNIQUE: Optional 5 mm thick noncontrast images acquired from the diaphragm to the iliac crests. After the administration of intravenous contrast, 5 mm thick images again acquired from the diaphragm to the iliac crests in the arterial and urographic phases. 5 mm thick coronal and sagittal reformats were then acquired. For radiation dose reduction, the following was used: automated exposure control, adjustment of mA and/or kV according to patient size. COMPARISON: [facility], CT, CT CHEST ABDOMEN PELVIS WITHOUT CONTRAST, 11/02/2023, 16:16. [facility], CT, CT CHEST ABD PEL WO CON, 06/06/2024, 2:39. FINDINGS: Image quality: Diagnostic. Kidneys and Ureters: There is a relatively large obstructive right renal mass lesion, within appearance potentially representing urothelial carcinoma extending inferiorly within the proximal right ureter, which is moderately dilated. Below this level into the pelvis the right ureter is not well visualized likely contains an intraluminal mass as obstructive influence, and there appears to have been prior cystectomy and ileal loop diversion to a right pelvic body wall ostomy site. No complex renal cystic lesion which requires follow up. The left kidney and ureter visualized appears free of distension or mass. OTHER: Lower chest: Moderate-sized hiatal hernia behind heart. Prior calcified right- sided hilar and perihilar lymph nodes consistent with old granulomatous disease. Liver: No solid mass. Gallbladder: The gallbladder is absent. Bilateral intrahepatic moderate biliary distension and prominent dilatation of the extrahepatic bile duct is seen, similar to that previously present and the dilatation does not appear associated with a ductal mass or calculus. Biliary ducts: The common bile measures up to 2.4 cm. Pancreas: No ductal dilation. Spleen: Size is within normal limits. Adrenal Glands: No adrenal nodules. Stomach and Bowel: Normal colonic caliber, without significant wall thickening. Generalized colonic obstipation. Peritoneum: No abnormal intraperitoneal fluid. No free air. Ventral Wall: No hernia. Abdominal Nodes: No retroperitoneal or mesenteric adenopathy by size criteria. Vessels: Aorta and inferior vena cava are normal in size. Bones: No aggressive osseous abnormality. IMPRESSION: 1. Malignant-appearing large right-sided mass measuring up to 7 x 5 by 11 cm in AP, transverse and craniocaudad dimensions. This is potentially an invasive renal cortical carcinoma but a malignant urothelial neoplasm also could produce this appearance. What appears to be either an obstructive influence by this mass extending inferiorly within the right ureter or and independent urothelial mass more inferiorly produces moderate right-sided collecting system dilatation. 2. Apparent prior bladder resection from prior CT scanning and also appearance of ileal loop urinary diversion to a ostomy site at the right lower quadrant. Scanning through the entire pelvis is not included on this examination. 3. Intra-and extrahepatic biliary distension without identified etiology. Prior cholecystectomy. This appears chronic and may simply be associated with sequela prior biliary disease. Ampullary neoplasm is considered unlikely given absence of identifiable mass in area. 4. Generalized colonic obstipation. Dictated by: Kota More M.D. on 08/16/2024 at 11:51 Approved by: Kota More M.D. on 08/16/2024 at 12:07
== END ==
PROVIDERS: Family Provider Internal Medicine; PCP Internal Medicine; Referring Provider Internal Medicine; Visit Provider Internal Medicine
DX: N28.89 Other specified disorders of kidney and ureter (principal); K83.8 Other specified diseases of biliary tract; K59.00 Constipation, unspecified; K44.9 Diaphragmatic hernia without obstruction or gangrene; Z90.49 Acquired absence of other specified parts of digestive tract
CPT/HCPCS: 74170; Q9967